=== PATIENT | male | born 1935 | race Caucasian/White ===

== ENCOUNTER 2017-10-14 10:04 | Emergency (ER) | payer MEDICARE, OTHER ==
[~2017-10-14] VITALS: Ht 172.7 cm; Wt 93.1 kg
[~2017-10-14 10:04] MED LIST: AC500T PO; ACET325T38 PO; ACET500L36 PO; AMLO10TA2 PO; AMLO10TA4 PO; AMLO10TA82 PO; ASP81CT PO; ASPI-586 PO; ASPI-999 PO; ATOR40TA70 PO; Atorvastatin Calcium PO; BNZ10T; BNZ10T PO; CLOP75TA28 PO; CLOP75TA69 PO; CLPD75T; CLPD75T PO; ETOD400T PO; GLUCOSAMINE; IBP200T; IBUPROFEN; LOSA50TA36 PO; METO100T5 PO; MTP100TCR PO; MULT-974 PO; MULT1TAB63 PO; MV-M1TAB38 PO; OMEP40CA36 PO; OXYC-197 PO; PHEN100C11 PO; PHN100C PO; TOLT2TAB5 PO; TOLT4CAP13 PO
[2017-10-14] MEDS ORDERED: LACTATED RINGERS 1,000 ML IV ONE (10:18)
[2017-10-14] MEDS ORDERED: FAMOTIDINE 20MG/2ML IV (PEPCID) IV STA (10:18)
[2017-10-14] MEDS ORDERED: ONDANSETRON 4 MG/2 ML (SDV) Z0FRAN IVP ONE (10:30)
[2017-10-14] MEDS ORDERED: ASPIRIN 81 MG CHEW (CHILDREN'S ASA) PO ONE (10:30)
[2017-10-14] MEDS ORDERED: NITROGLYCERIN 0.4 MG SL TABS BTL 25'S SL PRN (10:30)
--- NOTE | 2017-10-14 10:34 | ED Chest Pain ---
General Stated Complaint: CP,SOB,DIARRHEA,N/V Source: patient, spouse History of Present Illness Date Seen by Provider: Oct 14, 2017 Time Seen by Provider: 10:04 Initial Comments ARRIVES VIA POV FROM DR. CELAYA'S OFFICE, WHO CALLED PRIOR TO PT ARRIVAL PT STATES HE BEGAN HAVING MID CHEST PAIN DURING THE NIGHT, AND RADIATES TO BACK/ BETWEEN SHOULDER BLADES PAIN IS BETTER, BUT NOT GONE--HAS CONSTANT DISCOMFORT, BUT IS WORSE WITH DEEP BREATHS WAS SHORT OF BREATH WHEN CHEST PAIN WAS BAD, BUT DOES NOT FEEL SHORT OF BREATH NOW. AT 0700 THIS AM, BEGAN HAVING NAUSEA/VOMITING/DIARRHEA--VOMITED X 5-6 AND DIARRHEA X 5-6 HAS SOME EPIGASTRIC DISCOMFORT WITH VOMITING AND DEEP BREATHS, OTHERWISE IS NOT HAVING ABDOMINAL PAIN NO FEVER NO RECENT COUGH/URI/FLU SYMPTOMS NO KNOWN FEVER OR SWEATS NO SWELLING IN FEET/ANKLES OR PAIN IN CALVES PT HAS HISTORY OF CAD, BUT NO IL, AND CARDIAC CATH WITH NO INTERVENTION PCP: DR. CELAYA TOPOLOGY PROFESSOR: DR. HERCULES Allergies and Home Medications Allergies Coded Allergies: Sulfa (Sulfonamide Antibiotics) (Unverified Allergy, Mild, HIVES, 07/03/16 ) Home Medications Amlodipine Besylate 10 Mg Tablet, 10 MG PO DAILY, (Reported) Aspirin 81 Mg Tablet.dr, 81 MG PO DAILY, (Reported) Atorvastatin Calcium 40 Mg Tablet, 40 MG PO HS, (Reported) Clopidogrel Bisulfate 75 Mg Tablet, 75 MG PO DAILY, (Reported) Losartan Potassium 50 Mg Tablet, 50 MG PO DAILY, (Reported) Multivitamin 1 Each Tablet, 1 TAB PO DAILY, (Reported) Mv-Mn/FA/Vit K/Lycop/Lut/Zeaxa 1 Each Tablet, 1 TAB PO DAILY, (Reported) Oxycodone HCl/Acetaminophen 1 Each Tablet, 1 EACH PO Q4H, #60 Prescribed by: NATALIA CERDA on 07/10/16 1050 Phenytoin Sodium Extended 100 Mg Capsule, 100 MG PO BID, (Reported) Tolterodine Tartrate 4 Mg Cap.er.24h, 4 MG PO BID, (Reported) Review of Systems Constitutional: no symptoms reported, No chills, No diaphoresis, No fever EENTM: No Symptoms Reported Respiratory: See HPI, Shortness of Air Cardiovascular: See HPI, Chest Pain, Denies Edema, Denies Lightheadedness, Denies Palpitations, Denies Syncope Gastrointestinal: See HPI, Diarrhea, Nausea, Vomiting Genitourinary: No Symptoms Reported Musculoskeletal: see HPI, back pain Skin: no symptoms reported Psychiatric/Neurological: No Symptoms Reported Endocrine: No Symptoms Reported Hematologic/Lymphatic: No Symptoms Reported Past Fbxwkic-Najrgx-Zqhqwk Hx Patient Social History Alcohol Use: Denies Use Recreational Drug Use: No Smoking Status: Never a Smoker Recent Foreign Travel: No Contact w/Someone Who Travel: No Recent Hopitalizations: No Immunizations Up To Date Tetanus Booster (TDap): Unknown Date of Pneumonia Vaccine: May 22, 2016 Date of Influenza Vaccine: May 22, 2016 Seasonal Allergies Seasonal Allergies: No Surgeries History of Surgeries: Yes (CARDIAC CATH-NO INTERVENTION; BILATERAL TOTAL KNEE REPLACEMENTS) Surgeries: Appendectomy, Bladder Surgery, Cardiac, Gallbladder, Joint Replacement, Orthopedic, Transurethral Resection Respiratory History of Respiratory Disorde: No Currently Using CPAP: No Currently Using BIPAP: No Cardiovascular History of Cardiac Disorders: Yes Cardiac Disorders: Coronary Artery Disease, High Cholesterol, Hypertension Neurological History of Neurological Disord: Yes Neurological Disorders: Seizure Disorder, Stroke Reproductive System Hx Reproductive Disorders: No Sexually Transmitted Disease: No HIV/AIDS: No Genitourinary History of Genitourinary Disor: Yes Genitourinary Disorders: Benign Prostatic Hyperpl, Prostate Problems, Kidney Stones Gastrointestinal History of Gastrointestinal Di: Yes (S/P JAYLEEN) Gastrointestinal Disorders: Gall Bladder Disease Musculoskeletal History of Musculoskeletal Dis: Yes Musculoskeletal Disorders: Arthritis Endocrine History of Endocrine Disorders: No HEENT History of HEENT Disorders: Yes HEENT Disorders: Cataract, Macular Degeneration Loss of Vision: Denies Hearing Impairment: Denies Cancer History of Cancer: Yes Cancer: Bladder Type of Tx Receive: Surgical Intervention Psychosocial History of Psychiatric Problem: No Integumentary History of Skin or Integumenta: No Blood Transfusions History of Blood Disorders: No Adverse Reaction to a Blood Tr: No Family Medical History Family Medial History: Abdominal aortic aneurysm 09 BROTHER History of - respiratory disease 09 BROTHER Myocardial infarction 09 BROTHER Stroke 03 MOTHER 09 BROTHER 09 SISTER Physical Exam Vital Signs Vital Signs - First Documented 10/14/17 10:04 Temp 97.6 Pulse 79 Resp 18 B/P (MAP) 156/40 (78) Pulse Ox 100 O2 Delivery Room Air Capillary Refill : General Appearance: No Apparent Distress, WD/WN Neck: Full Range of Motion, Normal Inspection, Non Tender, Supple Respiratory: Chest Non Tender, No Accessory Muscle Use, No Respiratory Distress , Rales (IN BASES--LEFT > RIGHT) Cardiovascular: Regular Rate, Rhythm, No Edema, No JVD, No Murmur, Normal Peripheral Pulses, Other (OCCASIONAL ECTOPY C/W PAC'S ON MONITOR) Gastrointestinal: Normal Bowel Sounds, No Organomegaly, No Pulsatile Mass, Soft , Tenderness (MILD EPIGASTRIC) Extremity: Normal Capillary Refill, Normal Inspection, Normal Range of Motion, Non Tender, No Calf Tenderness, No Pedal Edema Neurologic/Psychiatric: Alert, Oriented x3, No Motor/Sensory Deficits, Normal Mood/Affect, 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 Skin: Normal Color, Warm/Dry Progress/Results/Core Measures Results/Orders Lab Results Laboratory Tests Test 10/14/17 10:29 10/14/17 11:14 Range/Units White Blood Count 13.7 H 4.3-11.0 10^3/uL Red Blood Count 4.62 4.35-5.85 10^6/uL Hemoglobin 14.7 13.3-17.7 G/DL Hematocrit 42 40-54 % Mean Corpuscular Volume 91 80-99 FL Mean Corpuscular Hemoglobin 32 25-34 PG Mean Corpuscular Hemoglobin Concent 35 32-36 G/DL Red Cell Distribution Width 13.5 10.0-14.5 % Platelet Count 234 130-400 10^3/uL Mean Platelet Volume 9.0 7.4-10.4 FL Neutrophils (%) (Auto) 87 H 42-75 % Lymphocytes (%) (Auto) 4 L 12-44 % Monocytes (%) (Auto) 7 0-12 % Eosinophils (%) (Auto) 1 0-10 % Basophils (%) (Auto) 0 0-10 % Neutrophils # (Auto) 12.0 H 1.8-7.8 X 10^3 Lymphocytes # (Auto) 0.6 L 1.0-4.0 X 10^3 Monocytes # (Auto) 1.0 0.0-1.0 X 10^3 Eosinophils # (Auto) 0.2 0.0-0.3 10^3/uL Basophils # (Auto) 0.0 0.0-0.1 10^3/uL Neutrophils % (Manual) 86 % Lymphocytes % (Manual) 4 % Monocytes % (Manual) 6 % Eosinophils % (Manual) 1 % Basophils % (Manual) 0 % Band Neutrophils 3 % Blood Morphology Comment NORMAL Prothrombin Time 13.3 12.2-14.7 SEC INR Comment 1.0 0.8-1.4 Activated Partial Thromboplast Time 24 24-35 SEC Sodium Level 139 135-145 MMOL/L Potassium Level 4.3 3.6-5.0 MMOL/L Chloride Level 107 98-107 MMOL/L Carbon Dioxide Level 21 21-32 MMOL/L Anion Gap 11 5-14 MMOL/L Blood Urea Nitrogen 16 7-18 MG/DL Creatinine 0.89 0.60-1.30 MG/DL Estimat Glomerular Filtration Rate > 60 BUN/Creatinine Ratio 18 Glucose Level 152 H 70-105 MG/DL Calcium Level 9.2 8.5-10.1 MG/DL Magnesium Level 1.9 1.8-2.4 MG/DL Total Bilirubin 0.6 0.1-1.0 MG/DL Aspartate Amino Transf (AST/SGOT) 23 5-34 U/L Alanine Aminotransferase (ALT/SGPT) 24 0-55 U/L Alkaline Phosphatase 83 40-136 U/L Total Creatine Kinase 87 30-200 U/L Creatine Kinase MB 2.2 <6.6 NG/ML Troponin I < 0.30 <0.30 NG/ML B-Type Natriuretic Peptide 105.4 H <100.0 PG/ML Total Protein 7.4 6.4-8.2 GM/DL Albumin 4.2 3.2-4.5 GM/DL Amylase Level 59 25-125 U/L Lipase 41 8-78 U/L Urine Color YELLOW Urine Clarity CLEAR Urine pH 5 5-9 Urine Specific [place] 1.020 1.016-1.022 Urine Protein 1+ H NEGATIVE Urine Glucose (UA) NEGATIVE NEGATIVE Urine Ketones NEGATIVE NEGATIVE Urine Nitrite NEGATIVE NEGATIVE Urine Bilirubin NEGATIVE NEGATIVE Urine Urobilinogen NORMAL NORMAL MG/DL Urine Leukocyte Esterase 1+ H NEGATIVE Urine RBC (Auto) NEGATIVE NEGATIVE Urine RBC NONE /HPF Urine WBC 2-5 /HPF Urine Squamous Epithelial Cells 0-2 /HPF Urine Crystals NONE /LPF Urine Bacteria TRACE /HPF Urine Casts NONE /LPF Urine Mucus MODERATE H /LPF Urine Culture Indicated NO My Orders Orders - DELFINO PHELPS DO Saline Lock/Iv-Start (10/14/17 10:18) Ekg Tracing (10/14/17 10:18) Monitor-Rhythm Ecg Trace Only (10/14/17 10:18) Amylase (10/14/17 10:18) BNP (10/14/17 10:18) Cbc With Automated Diff (10/14/17 10:18) Comprehensive Metabolic Panel (10/14/17 10:18) Creatine Kinase (10/14/17 10:18) Creatine Kinase Mb (10/14/17 10:18) Lipase (10/14/17 10:18) Magnesium (10/14/17 10:18) Protime With Inr (10/14/17 10:18) Partial Thromboplastin Time (10/14/17 10:18) Troponin I (10/14/17 10:18) Ua Culture If Indicated (10/14/17 10:18) Chest 1 View, Ap/Pa Only (10/14/17 10:18) Ondansetron Injection (Zofran Injectio (10/14/17 10:30) Famotidine Injection (Pepcid Injection) (10/14/17 10:18) Saline Lock/Iv-Start (10/14/17 10:18) Lactated Ringers (Lr 1000 Ml Iv Solution (10/14/17 10:18) Aspirin Chewable Tablet (Baby Aspirin Ch (10/14/17 10:30) Nitroglycerin 0.4 Mg Btl 25's (Nitrostat (10/14/17 10:30) Manual Differential (10/14/17 10:29) Ct Kerri Chest/Noang Abd-Pelv W (10/14/17 11:24) Iohexol Injection (Omnipaque 350 Mg/Ml 1 (10/14/17 11:30) Ns (Ivpb) (Sodium Chloride 0.9%) (10/14/17 11:30) Medications Given in ED Current Medications Medications Dose Ordered Sig/Randall Route Start Time Stop Time Status Last Admin Dose Admin Aspirin 324 mg ONCE ONCE PO 10/14/17 10:30 10/14/17 10:31 DC 10/14/17 10:36 324 MG Iohexol 125 ml ONCE ONCE IV 10/14/17 11:30 10/14/17 11:32 DC 10/14/17 11:43 125 ML Lactated Ringer's 1,000 ml @ 0 mls/hr Q0M ONCE IV 10/14/17 10:18 10/14/17 10:21 DC 10/14/17 10:39 1,000 MLS/HR Ondansetron HCl 4 mg ONCE ONCE IVP 10/14/17 10:30 10/14/17 10:31 DC 10/14/17 10:36 4 MG Sodium Chloride 250 ml ONCE ONCE IV 10/14/17 11:30 10/14/17 11:32 DC 10/14/17 11:43 80 ML Vital Signs/I&O Vital Sign - Last 12Hours 10/14/17 10/14/17 10:04 11:27 Temp 97.6 Pulse 79 73 Resp 18 18 B/P (MAP) 156/40 (78) 159/88 (111) Pulse Ox 100 96 O2 Delivery Room Air Room Air Progress Note : Progress Note NO COMPLAINTS OF ANY KIND FOR REMAINDER OF ER STAY PT STATES HE FEELS COMPLETELY BACK TO NORMAL AND WANTS TO GO HOME WAS INCONTINENT OF DIARRHEA STOOL X 1 ECG Initial ECG Impression Time: 10:33 Initial ECG Rate: 73 Initial ECG Rhythm: Normal Sinus ( ) Initial ECG Impression: Normal (PAC'S) Initial ECG Comparisson: Changed (AXIS CHANGED INFERERIOR LEADS) Diagnostic Imaging Comments CXR--NO ACUTE PROCESS, PER RADIOLOGIST REPORT CT CHEST ANGIOGRAM/ ABDOMEN-PELVIS--NO P.E. NO ACUTE PROCESS Reviewed: Reviewed by Me Departure Communication (Admissions) Progress Notes 1219--PAGED DR. HERCULES [id number]--SPOKE WITH DR. CELAYA, HE FEELS COMFORTABLE WITH PT GOING HOME, AND HE WILL SEE IN OFFICE TOMORROW MORNING. Impression Impression: Primary Impression: Gastroenteritis Additional Impression: CHEST PAIN-RESOLVED Disposition: 01 HOME, SELF-CARE Condition: Improved Departure-Patient Inst. Referrals: LISA CELAYA MD (PCP/Family) Primary Care Physician Patient Instructions: Chest Pain (DC), [id number], Viral Gastroenteritis Add. Discharge Instructions: TAKE YOUR REGULAR MEDICATIONS PRESCRIBED CLEAR LIQUIDS--WATER, BROTH, JELLO, GATORADE WHEN YOUR NAUSEA IS BETTER, ADD BRATS DIET TO CLEAR LIQUIDS--BANANAS, RICE, APPLESAUCE, TOAST, SALTINES FOLLOW UP WITH DR. CELAYA TOMORROW MORNING, RETURN TO ER IF SYMPTOMS RETURN / WORSEN Scripts Ondansetron (Zofran Odt) 4 Mg Tab.rapdis 4 MG PO Q4H for Nausea/Vomiting, #10 TAB Prov: DELFINO PHELPS DO 10/14/17 Pantoprazole Sodium (Protonix) 40 Mg Tablet.dr 40 MG PO DAILY, #15 TAB Prov: DELFINO PHELPS DO 10/14/17 Lactobacillus Acidophilus (Acidophilus Lactobacillus) 1 Gm Powder 1 GM MC QID for 7 Days, #1 EA Prov: DELFINO PHELPS DO 10/14/17 DELFINO PHELPS DO Oct 14, 2017 10:34
[2017-10-14 10:52] LABS: BASOPHILS % (AUTO) 0 % (0-10); EOSINOPHILS # (AUTO) 0.2 10^3/uL (0.0-0.3); EOSINOPHILS % (AUTO) 1 % (0-10); HEMATOCRIT 42 % (40-54); HEMOGLOBIN 14.7 G/DL (13.3-17.7); LYMPHOCYTES # (AUTO) 0.6 X 10^3 (1.0-4.0); LYMPHOCYTES % (AUTO) 4 % (12-44); MEAN CORPUSCULAR HEMOGLOBIN 32 PG (25-34); MEAN CORPUSCULAR HGB CONC 35 G/DL (32-36); MEAN CORPUSCULAR VOLUME 91 FL (80-99); MONOCYTES % (AUTO) 7 % (0-12); NEUTROPHILS % (AUTO) 87 % (42-75); PLATELET COUNT 234 10^3/uL (130-400); RED BLOOD COUNT 4.62 10^6/uL (4.35-5.85); RED CELL DISTRIBUTION WIDTH 13.5 % (10.0-14.5); WHITE BLOOD COUNT 13.7 10^3/uL (4.3-11.0)
[2017-10-14 11:03] LABS: PROTHROMBIN TIME PATIENT 13.3 SEC (12.2-14.7)
[2017-10-14 11:13] LABS: ALANINE AMINOTRANSFERASE 24 U/L (0-55); ALBUMIN 4.2 GM/DL (3.2-4.5); ALKALINE PHOSPHATASE 83 U/L (40-136); AMYLASE 59 U/L (25-125); BILIRUBIN,TOTAL 0.6 MG/DL (0.1-1.0); BUN/CREATININE RATIO 18; CALCIUM 9.2 MG/DL (8.5-10.1); CARBON DIOXIDE 21 MMOL/L (21-32); CHLORIDE 107 MMOL/L (98-107); CREATINE KINASE 87 U/L (30-200); CREATININE SERUM 0.89 MG/DL (0.60-1.30); GFR ESTIMATED > 60; GLUCOSE 152 MG/DL (70-105); LIPASE 41 U/L (8-78); MAGNESIUM 1.9 MG/DL (1.8-2.4); POTASSIUM 4.3 MMOL/L (3.6-5.0); SODIUM 139 MMOL/L (135-145); TOTAL PROTEIN 7.4 GM/DL (6.4-8.2)
[2017-10-14 11:18] LABS: BAND NEUTROPHILS 3 %; BASOPHILS % (MANUAL) 0 %; EOSINOPHILS % (MANUAL) 1 %; LYMPHOCYTES % (MANUAL) 4 %; MONOCYTES % (MANUAL) 6 %; NEUTROPHILS % (MANUAL) 86 %; RBC MORPH NORMAL
[2017-10-14 11:21] LABS: CREATINE KINASE MB 2.2 NG/ML (<6.6)
[2017-10-14 11:24] LABS: BILIRUBIN,URINE NEGATIVE (NEGATIVE); CLARITY,URINE CLEAR; COLOR,URINE YELLOW; GLUCOSE, URINE (UA) NEGATIVE (NEGATIVE); KETONES,URINE NEGATIVE (NEGATIVE); LEUKOCYTE ESTERASE ,URINE 1+ (NEGATIVE); NITRITE,URINE NEGATIVE (NEGATIVE); PH,URINE 5 (5-9); PROTEIN,URINE 1+ (NEGATIVE); UROBILINOGEN,URINE NORMAL (NORMAL)
[2017-10-14 11:27] VITALS: BP 159/88
--- NOTE | 2017-10-14 11:27 | Diagnostic Imaging Report ---
INDICATION: Shortness of breath and nausea. FINDINGS: Frontal chest obtained at 10:48 a.m. and compared with 07/03/2016. Heart is mildly enlarged. There is poor inspiration. There is no focal infiltrate or pneumothorax or pleural fluid. IMPRESSION: Poor inspiration. No focal acute process in the chest. Heart is mildly enlarged. Dictated by: Dictated on workstation # [id number]
[2017-10-14] MEDS ORDERED: NS 250 ML (IVPB) BAG IV ONE (11:30)
[2017-10-14] MEDS ORDERED: IOHEXOL 350 MG/ML 150 ML (OMNIPAQUE 350) VIAL IV ONE (11:30)
[2017-10-14 11:32] LABS: BACTERIA,URINE TRACE /HPF
[2017-10-14 11:33] LABS: SQUAMOUS EPITHELIAL CELL,UR 0-2 /HPF
--- NOTE | 2017-10-14 12:11 | Diagnostic Imaging Report ---
Indication: Shortness of air, chest pain with diarrhea. Findings: There are no intraluminal pulmonary arterial filling defects. There were no findings of pulmonary arterial embolus. The thoracic aorta is patent and nonaneurysmal. There are nodules in both thyroid lobes off the lower pole of the left nodule. There is an exophytic mass extending into the left paratracheal superior mediastinum. Findings presumed goiterous. No hilar mediastinal or axillary lymphadenopathy and no thoracic effusion. Abdomen pelvis: Gallbladder absent. Liver, bile ducts, spleen, adrenals and pancreas unremarkable. The abdominal aorta is atherosclerotic and ectatic at 2.4 cm distally but not frankly aneurysmal and without focal stenosis or occlusion. There is no ascites. There is no mesenteric or retroperitoneal lymphadenopathy. There is scattered colonic diverticuli without findings of focal or active diverticulitis. There is no evidence for small or large bowel obstruction. No perienteric or pericolonic edema. No ascites or fluid collection. No focal inflammatory process. The osseous structures nonacute. Impression: Chest: Negative for PE or other acute pathologies. Abdomen and pelvis: Atherosclerotic aortic ectasia. No findings of acute ischemia. No obstructive features, inflammatory process or acute-appearing abdominal or pelvic abnormalities. Chronic noninflamed diverticulosis, previous cholecystectomy. Dictated by: Dictated on workstation # [id number]
[2017-10-14] MEDS ORDERED: PANT40TA2 PO (12:34)
[2017-10-14] MEDS ORDERED: ONDA4TAB8 PO (12:34)
[2017-10-14] MEDS ORDERED: LACT1POW8 MC (12:34)
[2017-10-14 12:54] VITALS: BP 151/86
--- OUTSIDE RECORDS SUMMARY | 2017-10-15 08:54 | XMS REPORT | Continuity of Care Document ---
Author Author [facility] Organization [facility] Address Unknown Phone Unavailable Allergies Active Description Code Type Severity Reaction Onset Reported/Identified Relationship to Patient Clinical Status Yes Sulfa (Sulfonamide Antibiotics) [id number] Drug Allergy Mild HIVES 2015 Medications There is no data. 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 08/07/1550 ZAIDA PRATT, NATALIA Oakes Ot Z96.652 PRESENCE OF LEFT ARTIFICIAL KNEE JOINT 09/06/2014 YOMI PRATT, LISA R Ot 241.0 07/06/2015 YOMI PRATT, LISA R Ot A41.9 07/06/2015 YOMI PRATT, LISA R Ot C67.9 07/06/2015 YOMI PRATT, LISA R Ot G40.909 07/06/2015 YOMI PRATT, LISA R Ot I10 07/06/2015 YOMI PRATT, LISA R Ot I69.398 07/06/2015 YOMI PRATT, LISA R Ot N30.90 07/06/2015 YOMI PRATT, LISA R Ot N40.0 07/06/2015 YOMI PRATT, LISA R Ot Z23 07/11/2015 NISSA PRATT, CHELY A Ot D49.4 07/11/2015 NISSA PRATT, CHELY A Ot N13.8 07/11/2015 NISSA PRATT, CHELY A Ot N40.1 07/11/2015 NISSA PRATT, CHELY A Ot R31.0 07/19/2015 NISSA PRATT, CHELY A Ot R31.0 07/03/2016 ZAIDA PRATT, NATALIA Oakes Ot Z01.812 ENCOUNTER FOR PREPROCEDURAL LABORATORY E 07/03/2016 ZAIDA PRATT, NATALIA Oaeks Ot Z01.812 ENCOUNTER FOR PREPROCEDURAL LABORATORY E 07/03/2016 NATALIA CERDA MD, Ot 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, UNSPECIFIED 07/03/2016 NATALIA CERDA MD Ot R53.83 OTHER FATIGUE 07/03/2016 NATALIA CERDA MD Ot Z01.810 ENCOUNTER FOR PREPROCEDURAL CARDIOVASCUL 07/03/2016 NATALIA CERDA MD Ot Z01.811 ENCOUNTER FOR PREPROCEDURAL RESPIRATORY 07/03/2016 NATALIA CERDA MD Ot Z01.812 ENCOUNTER FOR PREPROCEDURAL LABORATORY E 07/03/2016 NATALIA CERDA MD Ot Z11.2 ENCOUNTER FOR SCREENING FOR OTHER BACTER 07/04/2016 NATALIA CERDA MD, Ot 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, UNSPECIFIED 07/04/2016 NATALIA CERDA MD Ot R53.83 OTHER FATIGUE 07/04/2016 NATALIA CERDA MD Ot Z01.810 ENCOUNTER FOR PREPROCEDURAL CARDIOVASCUL 07/04/2016 NATALIA CERDA MD Ot Z01.811 ENCOUNTER FOR PREPROCEDURAL RESPIRATORY 07/04/2016 NATALIA CERDA MD Ot Z01.812 ENCOUNTER FOR PREPROCEDURAL LABORATORY E 07/04/2016 NATALIA CERDA MD Ot Z11.2 ENCOUNTER FOR SCREENING FOR OTHER BACTER 07/13/2016 NATALIA CERDA MD Ot E78.5 HYPERLIPIDEMIA, UNSPECIFIED 07/13/2016 NATALIA CERDA MD Ot 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, UNSP, NOT INTRACTABLE, WITHOUT 07/13/2016 NATALIA CERDA MD Ot I10 ESSENTIAL (PRIMARY) HYPERTENSION 07/13/2016 NATALIA CERDA MD Ot I25.10 ATHSCL HEART DISEASE OF [place] CORONARY 07/13/2016 NATALIA CERDA MD Ot M17.12 UNILATERAL PRIMARY OSTEOARTHRITIS, LEFT 07/13/2016 NATALIA CERDA MD Ot 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 07/13/2016 NATALIA CERDA MD Ot Z79.82 SLEEP TECHNOLOGIST (CURRENT) USE OF ASPIRIN 07/13/2016 NATALIA CERDA MD Ot Z86.73 PRSNL HX OF TIA (TIA), AND CEREB INFRC W 07/13/2016 NATALIA CERDA MD Ot Z96.651 PRESENCE OF RIGHT ARTIFICIAL KNEE JOINT 08/14/2016 NATALIA CERDA MD, Ot 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 08/14/2016 NATALIA CERDA MD, Ot Z96.652 PRESENCE OF LEFT ARTIFICIAL KNEE JOINT 08/29/2016 NATALIA CERDA MD, Ot 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 08/29/2016 NATALIA CERDA MD, Ot Z96.652 PRESENCE OF LEFT ARTIFICIAL KNEE JOINT Procedures Code Description Performed By Performed On [id number] REPLACE OF L KNEE JT WITH SYNTH SUB, [facility] [place] 07/10/2016 Results Test Result Range Complete blood count (CBC) with automated white blood cell (WBC) differential - 07/03/16 10:00 Blood leukocytes automated count (number/volume) 7.6 10*3/uL 4.3-11.0 Blood erythrocytes automated count (number/volume) 4.39 10*6/uL 4.35-5.85 Venous blood hemoglobin measurement (mass/volume) 13.8 g/dL 13.3-17.7 Blood hematocrit (volume fraction) 40 % 40-54 Automated erythrocyte mean corpuscular volume 92 [foz_us] 80-99 Automated erythrocyte mean corpuscular hemoglobin (mass per erythrocyte) 31 pg 25-34 Automated erythrocyte mean corpuscular hemoglobin concentration measurement ( mass/volume) 34 g/dL 32-36 Automated erythrocyte distribution width ratio 13.0 % 10.0-14.5 Automated blood platelet count (count/volume) 327 10*3/uL 130-400 Automated blood platelet mean volume measurement 8.8 [foz_us] 7.4-10.4 Automated blood neutrophils/100 leukocytes 62 % 42-75 Automated blood lymphocytes/100 leukocytes 27 % 12-44 Blood monocytes/100 leukocytes 7 % 0-12 Automated blood eosinophils/100 leukocytes 3 % 0-10 Automated blood basophils/100 leukocytes 1 % 0-10 Blood neutrophils automated count (number/volume) 4.7 10*3 1.8-7.8 Blood lymphocytes automated count (number/volume) 2.1 10*3 1.0-4.0 Blood monocytes automated count (number/volume) 0.5 10*3 0.0-1.0 Automated eosinophil count 0.2 10*3/uL 0.0-0.3 Automated blood basophil count (count/volume) 0.1 10*3/uL 0.0-0.1 Comprehensive metabolic panel - 07/03/16 10:00 Serum or plasma sodium measurement (moles/volume) 142 mmol/L 135-145 Serum or plasma potassium measurement (moles/volume) 4.6 mmol/L 3.6-5.0 Serum or plasma chloride measurement (moles/volume) 106 mmol/L 98-107 Carbon dioxide 27 mmol/L 21-32 Serum or plasma anion gap determination (moles/volume) 9 mmol/L 5-14 Serum or plasma urea nitrogen measurement (mass/volume) 14 mg/dL 7-18 Serum or plasma creatinine measurement (mass/volume) 0.90 mg/dL 0.60-1.30 Serum or plasma urea nitrogen/creatinine mass ratio 16 NRG Serum or plasma creatinine measurement with calculation of estimated glomerular filtration rate > NRG Serum or plasma glucose measurement (mass/volume) 117 mg/dL 70-105 Serum or plasma calcium measurement (mass/volume) 9.5 mg/dL 8.5-10.1 Serum or plasma total bilirubin measurement (mass/volume) 0.4 mg/dL 0.1-1.0 Serum or plasma alkaline phosphatase measurement (enzymatic activity/volume) 83 U/L 40-136 Serum or plasma aspartate aminotransferase measurement (enzymatic activity/ volume) 23 U/L 5-34 Serum or plasma alanine aminotransferase measurement (enzymatic activity/volume ) 28 U/L 0-55 Serum or plasma protein measurement (mass/volume) 7.0 g/dL 6.4-8.2 Serum or plasma albumin measurement (mass/volume) 4.2 g/dL 3.2-4.5 Blood type T Indirect antibody screen panel - 07/03/16 10:00 ABO+Rh group AP NRG Blood group antibody screen NEGATIVE NRG Erythrocyte sedimentation rate by westergren method - 07/03/16 10:00 Erythrocyte sedimentation rate by westergren method 9 mm 0-30 PT panel in platelet poor plasma by coagulation assay - 07/03/16 10:00 Prothrombin time (PT) in platelet poor plasma by coagulation assay 12.4 s 12.2-14.7 INR in platelet poor plasma or blood by coagulation assay 1.0 0.8-1.4 Complete urinalysis with reflex to culture - 07/03/16 10:00 Urine color determination YELLOW NRG Urine clarity determination CLEAR NRG Urine pH measurement by test strip 5 5-9 Specific gravity of urine by test strip 1.020 1.016- 1.022 Urine protein assay by test strip, semi-quantitative 1+ NEGATIVE Urine glucose detection by automated test strip NEGATIVE NEGATIVE Erythrocytes detection in urine sediment by light microscopy NEGATIVE NEGATIVE Urine ketones detection by automated test strip NEGATIVE NEGATIVE Urine nitrite detection by test strip NEGATIVE NEGATIVE Urine total bilirubin detection by test strip NEGATIVE NEGATIVE Urine urobilinogen measurement by automated test strip (mass/volume) NORMAL NORMAL Urine leukocyte esterase detection by dipstick 1+ NEGATIVE Automated urine sediment erythrocyte count by microscopy (number/high power field) NONE NRG Automated urine sediment leukocyte count by microscopy (number/high power field ) [HPF] NRG Bacteria detection in urine sediment by light microscopy TRACE NRG Squamous epithelial cells detection in urine sediment by light microscopy 2-5 NRG Crystals detection in urine sediment by light microscopy NONE NRG Casts detection in urine sediment by light microscopy NONE NRG Mucus detection in urine sediment by light microscopy MODERATE NRG Complete urinalysis with reflex to culture NO NRG Methicillin resistant Staphylococcus aureus (MRSA) screening culture - 10:00 Methicillin resistant Staphylococcus aureus (MRSA) screening culture NEG NRG Complete blood count (CBC) with automated white blood cell (WBC) differential - 07/11/16 06:03 Blood leukocytes automated count (number/volume) 11.6 10*3/uL 4.3-11.0 Blood erythrocytes automated count (number/volume) 3.69 10*6/uL 4.35-5.85 Venous blood hemoglobin measurement (mass/volume) 11.7 g/dL 13.3-17.7 Blood hematocrit (volume fraction) 34 % 40-54 Automated erythrocyte mean corpuscular volume 93 [foz_us] 80-99 Automated erythrocyte mean corpuscular hemoglobin (mass per erythrocyte) 32 pg 25-34 Automated erythrocyte mean corpuscular hemoglobin concentration measurement ( mass/volume) 34 g/dL 32-36 Automated erythrocyte distribution width ratio 13.1 % 10.0-14.5 Automated blood platelet count (count/volume) 233 10*3/uL 130-400 Automated blood platelet mean volume measurement 9.2 [foz_us] 7.4-10.4 Automated blood neutrophils/100 leukocytes 77 % 42-75 Automated blood lymphocytes/100 leukocytes 10 % 12-44 Blood monocytes/100 leukocytes 13 % 0-12 Automated blood eosinophils/100 leukocytes 0 % 0-10 Automated blood basophils/100 leukocytes 0 % 0-10 Blood neutrophils automated count (number/volume) 8.9 10*3 1.8-7.8 Blood lymphocytes automated count (number/volume) 1.2 10*3 1.0-4.0 Blood monocytes automated count (number/volume) 1.5 10*3 0.0-1.0 Automated eosinophil count 0.1 10*3/uL 0.0-0.3 Automated blood basophil count (count/volume) 0.0 10*3/uL 0.0-0.1 Comprehensive metabolic panel - 07/11/16 06:03 Serum or plasma sodium measurement (moles/volume) 138 mmol/L 135-145 Serum or plasma potassium measurement (moles/volume) 4.0 mmol/L 3.6-5.0 Serum or plasma chloride measurement (moles/volume) 105 mmol/L 98-107 Carbon dioxide 23 mmol/L 21-32 Serum or plasma anion gap determination (moles/volume) 10 mmol/L 5-14 Serum or plasma urea nitrogen measurement (mass/volume) 15 mg/dL 7-18 Serum or plasma creatinine measurement (mass/volume) 0.80 mg/dL 0.60-1.30 Serum or plasma urea nitrogen/creatinine mass ratio 19 NRG Serum or plasma creatinine measurement with calculation of estimated glomerular filtration rate > NRG Serum or plasma glucose measurement (mass/volume) 164 mg/dL 70-105 Serum or plasma calcium measurement (mass/volume) 8.3 mg/dL 8.5-10.1 Serum or plasma total bilirubin measurement (mass/volume) 0.5 mg/dL 0.1-1.0 Serum or plasma alkaline phosphatase measurement (enzymatic activity/volume) 73 U/L 40-136 Serum or plasma aspartate aminotransferase measurement (enzymatic activity/ volume) 21 U/L 5-34 Serum or plasma alanine aminotransferase measurement (enzymatic activity/volume ) 29 U/L 0-55 Serum or plasma protein measurement (mass/volume) 5.7 g/dL 6.4-8.2 Serum or plasma albumin measurement (mass/volume) 3.5 g/dL 3.2-4.5 IRON TEST - 07/11/16 06:03 Serum or plasma iron measurement (mass/volume) 19 % 40- 180 Complete blood count (CBC) with automated white blood cell (WBC) differential - 07/12/16 04:07 Blood leukocytes automated count (number/volume) 13.0 10*3/uL 4.3-11.0 Blood erythrocytes automated count (number/volume) 3.42 10*6/uL 4.35-5.85 Venous blood hemoglobin measurement (mass/volume) 10.7 g/dL 13.3-17.7 Blood hematocrit (volume fraction) 31 % 40-54 Automated erythrocyte mean corpuscular volume 92 [foz_us] 80-99 Automated erythrocyte mean corpuscular hemoglobin (mass per erythrocyte) 31 pg 25-34 Automated erythrocyte mean corpuscular hemoglobin concentration measurement ( mass/volume) 34 g/dL 32-36 Automated erythrocyte distribution width ratio 12.8 % 10.0-14.5 Automated blood platelet count (count/volume) 203 10*3/uL 130-400 Automated blood platelet mean volume measurement 9.2 [foz_us] 7.4-10.4 Automated blood neutrophils/100 leukocytes 69 % 42-75 Automated blood lymphocytes/100 leukocytes 12 % 12-44 Blood monocytes/100 leukocytes 18 % 0-12 Automated blood eosinophils/100 leukocytes 1 % 0-10 Automated blood basophils/100 leukocytes 0 % 0-10 Blood neutrophils automated count (number/volume) 8.9 10*3 1.8-7.8 Blood lymphocytes automated count (number/volume) 1.5 10*3 1.0-4.0 Blood monocytes automated count (number/volume) 2.4 10*3 0.0-1.0 Automated eosinophil count 0.2 10*3/uL 0.0-0.3 Automated blood basophil count (count/volume) 0.0 10*3/uL 0.0-0.1 Comprehensive metabolic panel - 07/12/16 04:07 Serum or plasma sodium measurement (moles/volume) 136 mmol/L 135-145 Serum or plasma potassium measurement (moles/volume) 3.6 mmol/L 3.6-5.0 Serum or plasma chloride measurement (moles/volume) 106 mmol/L 98-107 Carbon dioxide 20 mmol/L 21-32 Serum or plasma anion gap determination (moles/volume) 10 mmol/L 5-14 Serum or plasma urea nitrogen measurement (mass/volume) 9 mg/dL 7-18 Serum or plasma creatinine measurement (mass/volume) 0.72 mg/dL 0.60-1.30 Serum or plasma urea nitrogen/creatinine mass ratio 13 NRG Serum or plasma creatinine measurement with calculation of estimated glomerular filtration rate > NRG Serum or plasma glucose measurement (mass/volume) 135 mg/dL 70-105 Serum or plasma calcium measurement (mass/volume) 8.2 mg/dL 8.5-10.1 Serum or plasma total bilirubin measurement (mass/volume) 0.8 mg/dL 0.1-1.0 Serum or plasma alkaline phosphatase measurement (enzymatic activity/volume) 69 U/L 40-136 Serum or plasma aspartate aminotransferase measurement (enzymatic activity/ volume) 36 U/L 5-34 Serum or plasma alanine aminotransferase measurement (enzymatic activity/volume ) 31 U/L 0-55 Serum or plasma protein measurement (mass/volume) 5.6 g/dL 6.4-8.2 Serum or plasma albumin measurement (mass/volume) 3.3 g/dL 3.2-4.5 Complete blood count (CBC) with automated white blood cell (WBC) differential - 07/13/16 06:05 Blood leukocytes automated count (number/volume) 13.4 10*3/uL 4.3-11.0 Blood erythrocytes automated count (number/volume) 3.31 10*6/uL 4.35-5.85 Venous blood hemoglobin measurement (mass/volume) 10.5 g/dL 13.3-17.7 Blood hematocrit (volume fraction) 30 % 40-54 Automated erythrocyte mean corpuscular volume 91 [foz_us] 80-99 Automated erythrocyte mean corpuscular hemoglobin (mass per erythrocyte) 32 pg 25-34 Automated erythrocyte mean corpuscular hemoglobin concentration measurement ( mass/volume) 35 g/dL 32-36 Automated erythrocyte distribution width ratio 12.9 % 10.0-14.5 Automated blood platelet count (count/volume) 216 10*3/uL 130-400 Automated blood platelet mean volume measurement 8.8 [foz_us] 7.4-10.4 Automated blood neutrophils/100 leukocytes 75 % 42-75 Automated blood lymphocytes/100 leukocytes 9 % 12-44 Blood monocytes/100 leukocytes 14 % 0-12 Automated blood eosinophils/100 leukocytes 1 % 0-10 Automated blood basophils/100 leukocytes 0 % 0-10 Blood neutrophils automated count (number/volume) 10.1 10*3 1.8-7.8 Blood lymphocytes automated count (number/volume) 1.3 10*3 1.0-4.0 Blood monocytes automated count (number/volume) 1.9 10*3 0.0-1.0 Automated eosinophil count 0.2 10*3/uL 0.0-0.3 Automated blood basophil count (count/volume) 0.0 10*3/uL 0.0-0.1 Comprehensive metabolic panel - 07/13/16 06:05 Serum or plasma sodium measurement (moles/volume) 139 mmol/L 135-145 Serum or plasma potassium measurement (moles/volume) 3.5 mmol/L 3.6-5.0 Serum or plasma chloride measurement (moles/volume) 106 mmol/L 98-107 Carbon dioxide 23 mmol/L 21-32 Serum or plasma anion gap determination (moles/volume) 10 mmol/L 5-14 Serum or plasma urea nitrogen measurement (mass/volume) 10 mg/dL 7-18 Serum or plasma creatinine measurement (mass/volume) 0.77 mg/dL 0.60-1.30 Serum or plasma urea nitrogen/creatinine mass ratio 13 NRG Serum or plasma creatinine measurement with calculation of estimated glomerular filtration rate > NRG Serum or plasma glucose measurement (mass/volume) 139 mg/dL 70-105 Serum or plasma calcium measurement (mass/volume) 9.1 mg/dL 8.5-10.1 Serum or plasma total bilirubin measurement (mass/volume) 0.7 mg/dL 0.1-1.0 Serum or plasma alkaline phosphatase measurement (enzymatic activity/volume) 67 U/L 40-136 Serum or plasma aspartate aminotransferase measurement (enzymatic activity/ volume) 35 U/L 5-34 Serum or plasma alanine aminotransferase measurement (enzymatic activity/volume ) 28 U/L 0-55 Serum or plasma protein measurement (mass/volume) 6.2 g/dL 6.4-8.2 Serum or plasma albumin measurement (mass/volume) 3.4 g/dL 3.2-4.5 Complete blood count (CBC) with automated white blood cell (WBC) differential - 10/14/17 10:29 Blood leukocytes automated count (number/volume) 13.7 10*3/uL 4.3-11.0 Blood erythrocytes automated count (number/volume) 4.62 10*6/uL 4.35-5.85 Venous blood hemoglobin measurement (mass/volume) 14.7 g/dL 13.3-17.7 Blood hematocrit (volume fraction) 42 % 40-54 Automated erythrocyte mean corpuscular volume 91 [foz_us] 80-99 Automated erythrocyte mean corpuscular hemoglobin (mass per erythrocyte) 32 pg 25-34 Automated erythrocyte mean corpuscular hemoglobin concentration measurement ( mass/volume) 35 g/dL 32-36 Automated erythrocyte distribution width ratio 13.5 % 10.0-14.5 Automated blood platelet count (count/volume) 234 10*3/uL 130-400 Automated blood platelet mean volume measurement 9.0 [foz_us] 7.4-10.4 Automated blood neutrophils/100 leukocytes 87 % 42-75 Automated blood lymphocytes/100 leukocytes 4 % 12-44 Blood monocytes/100 leukocytes 7 % 0-12 Automated blood eosinophils/100 leukocytes 1 % 0-10 Automated blood basophils/100 leukocytes 0 % 0-10 Blood neutrophils automated count (number/volume) 12.0 10*3 1.8-7.8 Blood lymphocytes automated count (number/volume) 0.6 10*3 1.0-4.0 Blood monocytes automated count (number/volume) 1.0 10*3 0.0-1.0 Automated eosinophil count 0.2 10*3/uL 0.0-0.3 Automated blood basophil count (count/volume) 0.0 10*3/uL 0.0-0.1 PT panel in platelet poor plasma by coagulation assay - 10/14/17 10:29 Prothrombin time (PT) in platelet poor plasma by coagulation assay 13.3 s 12.2-14.7 INR in platelet poor plasma or blood by coagulation assay 1.0 0.8-1.4 Activated partial thromboplastin time (aPTT) in platelet poor plasma bycoagulation assay - 10/14/17 10:29 Activated partial thromboplastin time (aPTT) in platelet poor plasma bycoagulation assay 24 s 24-35 Comprehensive metabolic panel - 10/14/17 10:29 Serum or plasma sodium measurement (moles/volume) 139 mmol/L 135-145 Serum or plasma potassium measurement (moles/volume) 4.3 mmol/L 3.6-5.0 Serum or plasma chloride measurement (moles/volume) 107 mmol/L 98-107 Carbon dioxide 21 mmol/L 21-32 Serum or plasma anion gap determination (moles/volume) 11 mmol/L 5-14 Serum or plasma urea nitrogen measurement (mass/volume) 16 mg/dL 7-18 Serum or plasma creatinine measurement (mass/volume) 0.89 mg/dL 0.60-1.30 Serum or plasma urea nitrogen/creatinine mass ratio 18 NRG Serum or plasma creatinine measurement with calculation of estimated glomerular filtration rate > NRG Serum or plasma glucose measurement (mass/volume) 152 mg/dL 70-105 Serum or plasma calcium measurement (mass/volume) 9.2 mg/dL 8.5-10.1 Serum or plasma total bilirubin measurement (mass/volume) 0.6 mg/dL 0.1-1.0 Serum or plasma alkaline phosphatase measurement (enzymatic activity/volume) 83 U/L 40-136 Serum or plasma aspartate aminotransferase measurement (enzymatic activity/ volume) 23 U/L 5-34 Serum or plasma alanine aminotransferase measurement (enzymatic activity/volume ) 24 U/L 0-55 Serum or plasma protein measurement (mass/volume) 7.4 g/dL 6.4-8.2 Serum or plasma albumin measurement (mass/volume) 4.2 g/dL 3.2-4.5 Magnesium - 10/14/17 10:29 Magnesium 1.9 mg/dL 1.8-2.4 Serum or plasma creatine kinase measurement (enzymatic activity/volume) - 10/14 10:29 Serum or plasma creatine kinase measurement (enzymatic activity/volume) 87 U/L 30-200 Serum or plasma creatine kinase MB measurement (enzymatic activity/volume) - 10:29 Serum or plasma creatine kinase MB measurement (enzymatic activity/volume) 2.2 ng/mL <6.6 Serum or plasma troponin i.cardiac measurement (mass/volume) - 10/14/17 10:29 Serum or plasma troponin i.cardiac measurement (mass/volume) < ng/ mL <0.30 Blood manual differential performed detection - 10/14/17 10:29 Blood monocytes/100 leukocytes 6 % NRG Manual blood segmented neutrophils/100 leukocytes 86 % NRG Blood band neutrophils/100 leukocytes 3 % NRG Manual blood lymphocytes/100 leukocytes 4 % NRG Manual eosinophils/100 leukocytes in nose 1 % NRG Manual blood basophils/100 leukocytes 0 % NRG Blood erythrocyte morphology finding identification NORMAL NRG Serum or plasma amylase measurement (enzymatic activity/volume) - 10/14/17 10: 29 Serum or plasma amylase measurement (enzymatic activity/volume) 59 U /L 25-125 Serum or plasma lithium measurement (moles/volume) - 10/14/17 10:29 BNP level 105.4 pg/mL <100.0 Lipase - 10/14/17 10:29 Lipase 41 U/L 8-78 Complete urinalysis with reflex to culture - 10/14/17 11:14 Urine color determination YELLOW NRG Urine clarity determination CLEAR NRG Urine pH measurement by test strip 5 5-9 Specific gravity of urine by test strip 1.020 1.016- 1.022 Urine protein assay by test strip, semi-quantitative 1+ NEGATIVE Urine glucose detection by automated test strip NEGATIVE NEGATIVE Erythrocytes detection in urine sediment by light microscopy NEGATIVE NEGATIVE Urine ketones detection by automated test strip NEGATIVE NEGATIVE Urine nitrite detection by test strip NEGATIVE NEGATIVE Urine total bilirubin detection by test strip NEGATIVE NEGATIVE Urine urobilinogen measurement by automated test strip (mass/volume) NORMAL NORMAL Urine leukocyte esterase detection by dipstick 1+ NEGATIVE Automated urine sediment erythrocyte count by microscopy (number/high power field) NONE NRG Automated urine sediment leukocyte count by microscopy (number/high power field ) [HPF] NRG Bacteria detection in urine sediment by light microscopy TRACE NRG Squamous epithelial cells detection in urine sediment by light microscopy 0-2 NRG Crystals detection in urine sediment by light microscopy NONE NRG Casts detection in urine sediment by light microscopy NONE NRG Mucus detection in urine sediment by light microscopy MODERATE NRG Complete urinalysis with reflex to culture NO NRG Encounters ACCT No. Visit Date/Time Discharge Status Pt. Type Provider Facility Loc./Unit Complaint [id number] 10/14/2017 10:06:00 10/14/2017 12:54:00 DIS Emergency LENIN DODELFINO [facility] ER CP,SOB,DIARRHEA,N/V [id number] 08/29/2016 14:36:00 08/29/2016 15:51:00 DIS Outpatient NATALIA CERDA MD [facility] REHAB S/P L TKR, OA LT KNEE [id number] 07/10/2016 05:55:00 07/13/2016 10:55:00 DIS Inpatient NATALIA CERDA MD [facility] 4TH LEFT KNEE OA [id number] 07/03/2016 09:31:00 07/03/2016 11:22:00 DIS Outpatient ZAIDA PRATT, NATALIA Oakes [facility] PREOP LEFT KNEE OA [id number] 07/11/2015 07:06:00 07/11/2015 13:40:00 DIS Outpatient CHELY AZAR MD [facility] [id number] 07/07/2015 05:37:00 07/07/2015 23:59:59 CLS Outpatient CHELY AZAR MD [facility] PREOP [id number] 07/05/2015 09:19:00 07/06/2015 10:05:00 DIS Inpatient LISA CELAYA MD [facility] 4TH [id number] 06/20/2015 12:11:00 06/20/2015 23:59:59 CLS Outpatient CHELY AZAR MD [facility] RAD [id number] 08/10/2014 13:13:00 08/10/2014 23:59:59 CLS Outpatient LISA CELAYA MD [facility] RAD [id number] 03/07/2014 09:04:00 03/07/2014 23:59:59 CLS Outpatient [id number] 02/15/2014 10:58:00 02/15/2014 23:59:59 CLS Outpatient [id number] 02/07/2014 11:27:00 02/07/2014 15:00:00 DIS Outpatient [id number] 02/03/2014 08:27:00 02/03/2014 23:59:59 CLS Outpatient [id number] 01/10/2014 19:00:00 01/18/2014 12:28:00 DIS Inpatient [id number] 01/10/2014 12:17:00 01/10/2014 23:59:59 CLS Outpatient [id number] 12/25/2013 07:45:00 12/25/2013 21:29:00 DIS Outpatient
== END 2017-10-14 12:54 | disposition home or self-care (01) ==
LOC: EDUNIT# 10:04 → ER 10:06
DX: K52.9 Noninfective gastroenteritis and colitis, unspecified (principal); G40.909 Epilepsy, unspecified, not intractable, without status epilepticus; I25.10 Atherosclerotic heart disease of native coronary artery without angina pectoris; Z90.49 Acquired absence of other specified parts of digestive tract; Z87.19 Personal history of other diseases of the digestive system; Z87.442 Personal history of urinary calculi; Z86.73 Personal history of transient ischemic attack (TIA), and cerebral infarction without residual deficits; Z90.79 Acquired absence of other genital organ(s); Z88.2 Allergy status to sulfonamides; Z96.653 Presence of artificial knee joint, bilateral
CPT/HCPCS: 36415; 71045; 71275; 74177; 80053; 81000; 82150; 82550; 82553; 83690; 83735; 83880; 84484; 85007; 85027; 85610; 85730; 93005; 93041; 96361; 96374; 96375

== ENCOUNTER → 2018-11-24 | Outpatient (CLI) | payer MEDICARE, OTHER ==
[~2018-11-24] MED LIST changes: -AMLO10TA2 PO; +AMLO10TA7 PO; +LACT1POW8 MC; -LOSA50TA36 PO; +LOSA50TA63 PO; +ONDA4TAB8 PO; -OXYC-197 PO; +OXYC1TAB87 PO; +PANT40TA2 PO
== END ==
LOC: CARD 09:45
PROVIDERS: ATTEND Family Medicine
DX: R01.2 Other cardiac sounds (principal); I35.0 Nonrheumatic aortic (valve) stenosis
CPT/HCPCS: 93306

== ENCOUNTER 2021-04-26 23:36 | Inpatient (IN) | payer MEDICARE, OTHER ==
[~2021-04-26] VITALS: Ht 170 cm; Wt 90.7 kg
[~2021-04-26 23:36] MED LIST changes: +AMLO-251 PO; -AMLO10TA7 PO; +TOLT2TAB19 PO; -TOLT2TAB5 PO; -TOLT4CAP13 PO; +TOLT4CAP26 PO
--- NOTE | 2021-04-26 23:55 | ED General ---
General Chief Complaint: General Problems/Pain Stated Complaint: WEAKNESS Source of Information: EMS Exam Limitations: Other (PT IS POOR HISTORIAN) History of Present Illness Date Seen by Provider: Apr 26, 2021 Time Seen by Provider: 23:36 Initial Comments PT ARRIVES VIA EMS FROM HOME PT GOT UP TO GO TO THE BATHROOM AND WAS TOO WEAK TO CONTINUE WALKING, SO HE SAT DOWN ON THE FLOOR DID NOT FALL OR HIT HIS HEAD NO SYNCOPE TOO WEAK TO STAND AND FAMILY MEMBER UNABLE TO HELP HIM UP NO COMPLAINTS OTHERWISE NO PARESTHESIAS OR MOTOR DEFICITS NO HEADACHE NO VISION CHANGES NO NAUSEA/VOMITING/DIARRHEA/ABDOMINAL PAIN NO CHEST PAIN NO SHORTNESS OF BREATH NO PAIN ANYWHERE EMS REPORTS THAT PT WENT TO DENTIST TODAY FOR A TOOTHACHE--PT ACKNOWLEDGES PAIN TO RIGHT LOWER MOLAR AREA. PT STATES THAT THEY DID NOT FIND ANYTHING WRONG WITH HIS TOOTH OR PRESCRIBE ANY MEDICATION EMS REPORT THAT PT HAD A BUSY DAY TODAY--DID ALOT OF WALKING, DOES NOT USE A WALKER OR ANY ASSISTIVE DEVICE, AND REPORTEDLY HAD BEEN FINE ALL DAY TODAY, EXCEPT FOR TOOTHACHE WHEN ASKED THE PT WHAT MEDICAL PROBLEMS HE HAS, HE STATES "NONE" WHEN ASKED THE PT WHAT MEDICATIONS HE TOOK , HE STATES "NONE" LIST OF PT'S MEDICATIONS, PMH AND PAST SURGICAL HISTORY IS SENT WITH PT BY FAMILY MEMBER AT HOME. PT HAD ONE VISIT HERE IN 2018 PT WAS HERE IN 2016 FOR KNEE SURGERY PT HAS HAD BOTH MODERNA COVID-19 VACCINES--LAST ONE 10/28/20 IS IN ROOM LATER, AND RELATES THAT PT DID SEE DENTIST TODAY, AND WAS FOUND TO HAVE A CAVITY, AND WAS SUPPOSED TO GO BACK TODAY AND HAVE A FILLING PLACED IN THE TOOTH. NO RX'S WERE GIVEN ALSO STATES THAT HE WAS A LITTLE BIT WEAK THIS AFTERNOON WHEN PCP: DR. DUNN Allergies and Home Medications Allergies Coded Allergies: Sulfa (Sulfonamide Antibiotics) (Unverified Allergy, Mild, HIVES, 07/03/16) Home Medications Acetaminophen 500 Mg Tablet, 500-1,000 MG PO Q8H PRN for PAIN-MILD (1-4), (Reported) Last Action: Reviewed Amlodipine Besylate 10 Mg Tablet, 10 MG PO DAILY, (Reported) Last Action: Reviewed Aspirin 81 Mg Tablet., 81 MG PO DAILY, (Reported) Last Action: Reviewed Atorvastatin Calcium 40 Mg Tablet, 40 MG PO DAILY, (Reported) Last Action: Reviewed Clopidogrel Bisulfate 75 Mg Tablet, 75 MG PO HS, (Reported) Last Action: Reviewed Losartan Potassium 50 Mg Tablet, 50 MG PO DAILY, (Reported) Last Action: Reviewed Multivitamin 1 Each Tablet, 1 EACH PO DAILY, (Reported) Last Action: Reviewed Oxybutynin Chloride 5 Mg Tablet, 5 MG PO BID, (Reported) Last Action: Reviewed Phenytoin Sodium Extended 100 Mg Capsule, 100 MG PO BID, (Reported) Last Action: Reviewed Vit C/E/Zn/Coppr/Lutein/Zeaxan 1 Each Capsule, 1 EACH PO BID, (Reported) Last Action: Reviewed Patient Home Medication List Home Medication List Reviewed: Yes Review of Systems Review of Systems Constitutional: see HPI, weakness EENTM: no symptoms reported Respiratory: no symptoms reported Cardiovascular: no symptoms reported Gastrointestinal: no symptoms reported Genitourinary: no symptoms reported Musculoskeletal: no symptoms reported Skin: no symptoms reported Psychiatric/Neurological: See HPI; Denies Headache, Denies Numbness, Denies Paresthesia, Denies Tingling, Denies Tremors; Other (GENERALIZED WEAKNESS) Past Kcoxdvh-Zasccq-Hhwngz Hx Immunizations Up To Date Tetanus Booster (TDap): Unknown Seasonal Allergies Seasonal Allergies: No Past Medical History Surgery/Hospitalization HX: 1956--APPENDECTOMY/RUPTURED APPENDIX 1990--TURP BY DR. AZAR 2000--LEFT KNEE ARTHROSCOPY BY DR. 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 MERLOS 2005--RIGHT KNEE ARTHROSCOPY BY DR. CERDA 2006--CHOLECYSTECTOMY BY DR. LU 2006--RIGHT TOTAL KNEE REPLACEMENT 2009--HOSPITALIZED X 1 WEEK FOR VIRAL INFECTION 2010--EEG DONE SHOWING EPILEPSY 2013--CARDIAC CATH-DX WITH CAD BUT NO INTERVENTION-BY DR. HERCULES 2013--KIDNEY STONE WITH PSEUDO BOWEL OBSTRUCTION-HOSPITALIZED X 1 WEEK/NO SURGERY 2013--COLONOSCOPY--NORMAL--BY DR. MAYORGA 2014--CYSTOSCOPY-SMALL AREA OF CANCER IN BLADDER-BY DR. 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 AZAR 2015--LEFT TOTAL KNEE REPLACEMENT BY DR. CERDA Surgeries: Yes (CARDIAC CATH-NO INTERVENTION; BILATERAL TOTAL KNEE REPLACEMENTS) Appendectomy, Bladder Surgery, Cardiac, Eye Surgery, Gallbladder, Joint Replacement, Orthopedic, Transurethral Resection Respiratory: No Currently Using CPAP: No Currently Using BIPAP: No Cardiac: Yes Coronary Artery Disease, High Cholesterol, Hypertension Neurological: Yes (POOR MEMORY) Seizure Disorder, Stroke Reproductive Disorders: No Sexually Transmitted Disease: No HIV/AIDS: No Genitourinary: Yes Benign Prostatic Hyperpl, Prostate Problems, Kidney Stones Gastrointestinal: Yes (S/P JAYLEEN) Gall Bladder Disease Musculoskeletal: Yes Arthritis Endocrine: No HEENT: Yes Cataract, Macular Degeneration Loss of Vision: Denies Hearing Impairment: Hard of Hearing Cancer: Yes Bladder Did You Recieve Any Treatments: Yes What Type of Treatment Did You: Surgical Intervention BLADDER CANCER TREATED IN 2005 WITH BCG, TREATED IN 2014 WITH SURGERY/TURBT Psychosocial: No Integumentary: No Blood Disorders: No Adverse Reaction/Blood Tranf: No Family Medical History Abdominal aortic aneurysm 09 BROTHER History of - respiratory disease 09 BROTHER Myocardial infarction 09 BROTHER Stroke 03 MOTHER 09 BROTHER 09 SISTER Physical Exam Vital Signs Vital Signs - First Documented 04/26/21 23:36 Temp 37.0 Pulse 92 Resp 16 B/P (MAP) 113/72 (86) Pulse Ox 92 O2 Delivery Room Air Capillary Refill : Height, Weight, BMI Height: 5'8.00" Weight: 205lbs. 3.0oz. [id number]; 31.2 BMI Method:Stated General Appearance: No Apparent Distress, WD/WN HEENT: PERRL/EOMI Neck: Normal Inspection Respiratory: Normal Breath Sounds, No Accessory Muscle Use, No Respiratory Distress Cardiovascular: Regular Rate, Rhythm, No Edema, No JVD, No Murmur, Normal Peripheral Pulses Gastrointestinal: Non Tender, Soft Extremity: Normal Capillary Refill, Normal Inspection, Normal Range of Motion, Non Tender, No Pedal Edema Neurologic/Psychiatric: Alert, Oriented x3 (BUT LIMITED MEMORY AT THIS TIME), No Motor/Sensory Deficits, Normal Mood/Affect, solar energy advisor II-XII Norm as Tested Progress/Results/Core Measures Suspected Sepsis SIRS Temperature: Pulse: Respiratory Rate: Laboratory Tests 04/26/21 23:43: White Blood Count 12.4H Blood Pressure / Mean: Laboratory Tests 04/26/21 23:43: Creatinine 0.95, INR Comment 1.1, Platelet Count 198, Total Bilirubin 0.6 Results/Orders Lab Results Laboratory Tests Test 04/26/21 23:43 Range/Units White Blood Count 12.4 H 4.3-11.0 10^3/uL Red Blood Count 4.23 L 4.30-5.52 10^6/uL Hemoglobin 13.5 13.3-17.7 g/dL Hematocrit 39 L 40-54 % Mean Corpuscular Volume 92 80-99 fL Mean Corpuscular Hemoglobin 32 25-34 pg Mean Corpuscular Hemoglobin Concent 35 32-36 g/dL Red Cell Distribution Width 13.3 10.0-14.5 % Platelet Count 198 130-400 10^3/uL Mean Platelet Volume 8.6 L 9.0-12.2 fL Immature Granulocyte % (Auto) 1 % Neutrophils (%) (Auto) 83 H 42-75 % Lymphocytes (%) (Auto) 7 L 12-44 % Monocytes (%) (Auto) 9 0-12 % Eosinophils (%) (Auto) 0 0-10 % Basophils (%) (Auto) 0 0-10 % Neutrophils # (Auto) 10.3 H 1.8-7.8 10^3/uL Lymphocytes # (Auto) 0.9 L 1.0-4.0 10^3/uL Monocytes # (Auto) 1.1 H 0.0-1.0 10^3/uL Eosinophils # (Auto) 0.0 0.0-0.3 10^3/uL Basophils # (Auto) 0.0 0.0-0.1 10^3/uL Immature Granulocyte # (Auto) 0.1 0.0-0.1 10^3/uL Erythrocyte Sedimentation Rate 18 0-30 MM/HR Prothrombin Time 14.2 12.2-14.7 SEC INR Comment 1.1 0.8-1.4 Activated Partial Thromboplast Time 33 24-35 SEC Sodium Level 138 135-145 MMOL/L Potassium Level 3.6 3.6-5.0 MMOL/L Chloride Level 104 98-107 MMOL/L Carbon Dioxide Level 21 21-32 MMOL/L Anion Gap 13 5-14 MMOL/L Blood Urea Nitrogen 12 7-18 MG/DL Creatinine 0.95 0.60-1.30 MG/DL Estimat Glomerular Filtration Rate 76 BUN/Creatinine Ratio 13 Glucose Level 188 H 70-105 MG/DL Calcium Level 9.2 8.5-10.1 MG/DL Corrected Calcium 9.2 8.5-10.1 MG/DL Magnesium Level 1.6 1.6-2.4 MG/DL Total Bilirubin 0.6 0.1-1.0 MG/DL Aspartate Amino Transf (AST/SGOT) 41 H 5-34 U/L Alanine Aminotransferase (ALT/SGPT) 31 0-55 U/L Alkaline Phosphatase 86 40-136 U/L Total Creatine Kinase 97 30-200 U/L Creatine Kinase MB 1.6 <6.6 NG/ML Myoglobin 165.0 H 10.0-92.0 NG/ML Troponin I 0.044 H <0.028 NG/ML B-Type Natriuretic Peptide 151.4 H <100.0 PG/ML Total Protein 7.2 6.4-8.2 GM/DL Albumin 4.0 3.2-4.5 GM/DL Lipase 25 8-78 U/L TSH [place] Testing 1.07 0.35-4.94 UIU/ML Acetaminophen Level < 10 L 10-30 UG/ML Phenytoin (Dilantin) Level 6.7 L 10.0-20.0 ug/mL Serum Alcohol < 10 <10 MG/DL My Orders Orders - DELFINO PHELPS DO Ed Iv/Invasive Line Start (04/26/21 23:43) Ekg Tracing (04/26/21:43) Monitor-Rhythm Ecg Trace Only (04/26/21:43) Ct Head Wo-R/O Stroke (04/26/21 23:43) Acetaminophen (04/26/21 23:43) Alcohol (04/26/21 23:43) Cbc With Automated Diff (04/26/21:43) Comprehensive Metabolic Panel (04/26/21:43) Creatine Kinase (04/26/21:43) Creatine Kinase Mb (04/26/21:43) Erythrocyte Sedimentation Rate (04/26/21:43) Lipase (04/26/21 23:43) Magnesium (04/26/21 23:43) Protime With Inr (04/26/21:43) Partial Thromboplastin Time (04/26/21:43) Thyroid Analyzer (04/26/21:43) Ua Culture If Indicated (04/26/21:43) Myoglobin Serum (04/26/21:43) Troponin I (04/26/21 23:43) Dilantin (Phenytoin) (04/26/21 23:43) Chest 1 View, Ap/Pa Only (04/27/21 00:01) BNP (04/27/21 00:52) Covid 19 Inhouse Test (04/27/21 01:38) Influenza A And B By Pcr (04/27/21 01:38) Vital Signs/I&O 04/26/21 23:36 Temp 37.0 Pulse 92 Resp 16 B/P (MAP) 113/72 (86) Pulse Ox 92 O2 Delivery Room Air Capillary Refill : Progress Note : Progress Note PT HAD NO COMPLAINTS OF ANY KIND DURING ENTIRE ER STAY ARRIVES, AND REPORTS THAT HE HAD BEEN TO DENTIST TODAY, AND A CAVITY WAS FOUND AND IS TO HAVE IT FILLED 04/27/21 SHE REPORTS THAT HE WAS A LITTLE WEAK THIS AFTERNOON AFTER VISITING THE DENTIST, BUT WAS WALKING FINE SHE STATES TONIGHT, WHEN HE GOT UP TO GO TO THE BATHROOM, HIS LEGS WERE JUST TOO WEAK TO STAND AND HE SLOWLY WENT DOWN TO SIT ON FLOOR--SHE WITNESSED IT, AND THERE WAS NO FALL OR SYNCOPE OR INJURY OF ANY KIND. SHE REPORTS THAT HE WAS TOO WEAK TO STAND UP ON HIS OWN AND SHE COULD NOT LIFT HIM. 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 DUNN, ACCEPTS PT FOR ADMIT. WILL CONSULT CARDIOLOGY IN AM Impression Primary Impression: Generalized weakness Additional Impressions: Elevated troponin History of seizures HTN (hypertension) Disposition: ADMITTED INPATIENT Condition: Stable Admissions Decision to Admit Reason: Admit from ER (General) Decision to Admit/Date: Apr 27, 2021 Time/Decision to Admit Time: 01:40 Departure-Patient Inst. Referrals: ADEBAYO DUNN MD (PCP/Family) Primary Care Physician DELFINO PHELPS DO Apr 26, 2021 23:55
[2021-04-26 23:58] LABS: BASOPHILS % (AUTO) 0 % (0-10); EOSINOPHILS % (AUTO) 0 % (0-10); HEMATOCRIT 39 % (40-54); HEMOGLOBIN 13.5 g/dL (13.3-17.7); LYMPHOCYTES # (AUTO) 0.9 10^3/uL (1.0-4.0); LYMPHOCYTES % (AUTO) 7 % (12-44); MEAN CORPUSCULAR HEMOGLOBIN 32 pg (25-34); MEAN CORPUSCULAR HGB CONC 35 g/dL (32-36); MEAN CORPUSCULAR VOLUME 92 fL (80-99); MEAN PLATELET VOLUME 8.6 fL (9.0-12.2); MONOCYTES # (AUTO) 1.1 10^3/uL (0.0-1.0); MONOCYTES % (AUTO) 9 % (0-12); NEUTROPHILS # (AUTO) 10.3 10^3/uL (1.8-7.8); NEUTROPHILS % (AUTO) 83 % (42-75); PLATELET COUNT 198 10^3/uL (130-400); WHITE BLOOD COUNT 12.4 10^3/uL (4.3-11.0)
[2021-04-27] VITALS (19 sets, daily range): BP systolic 114–195; BP diastolic 63–87
[2021-04-27 00:16] LABS: ALANINE AMINOTRANSFERASE 31 U/L (0-55); ALKALINE PHOSPHATASE 86 U/L (40-136); BILIRUBIN,TOTAL 0.6 MG/DL (0.1-1.0); BUN/CREATININE RATIO 13; CALCIUM 9.2 MG/DL (8.5-10.1); CARBON DIOXIDE 21 MMOL/L (21-32); CHLORIDE 104 MMOL/L (98-107); CREATINE KINASE 97 U/L (30-200); CREATININE SERUM 0.95 MG/DL (0.60-1.30); GFR ESTIMATED 76; GLUCOSE 188 MG/DL (70-105); INR 1.1 (0.8-1.4); LIPASE 25 U/L (8-78); MAGNESIUM 1.6 MG/DL (1.6-2.4); POTASSIUM 3.6 MMOL/L (3.6-5.0); PROTHROMBIN TIME PATIENT 14.2 SEC (12.2-14.7); SODIUM 138 MMOL/L (135-145); TOTAL PROTEIN 7.2 GM/DL (6.4-8.2)
[2021-04-27 00:17] LABS: ACETAMINOPHEN < 10 UG/ML (10-30)
[2021-04-27 00:20] LABS: ERYTHROCYTE SEDIMENTATION RATE 18 MM/HR (0-30)
[2021-04-27 00:36] LABS: CREATINE KINASE MB 1.6 NG/ML (<6.6); TSH (THYROID ANALYZER) 1.07 UIU/ML (0.35-4.94)
[2021-04-27 02:23] LABS: BILIRUBIN,URINE NEGATIVE (NEGATIVE); COLOR,URINE YELLOW; GLUCOSE, URINE (UA) NEGATIVE (NEGATIVE); KETONES,URINE TRACE (NEGATIVE); LEUKOCYTE ESTERASE ,URINE NEGATIVE (NEGATIVE); NITRITE,URINE NEGATIVE (NEGATIVE); PH,URINE 5.5 (5-9); PROTEIN,URINE 2+ (NEGATIVE)
[2021-04-27 02:30] LABS: CLARITY,URINE SL CLOUDY; RBC,URINE >100 /HPF
[2021-04-27 02:31] LABS: BACTERIA,URINE NEGATIVE /HPF
[2021-04-27] MEDS ORDERED: ACETAMINOPHEN 500 MG TAB (TYLENOL) PO PRN (04:00)
[2021-04-27] MEDS ORDERED: ONDANSETRON 4 MG/2 ML (SDV) Z0FRAN IV PRN (04:00)
[2021-04-27] MEDS ORDERED: morphine INJ 4 MG/ML 1 ML (VIAL/SYRINGE) IV PRN (04:15)
[2021-04-27] MEDS ORDERED: NITROGLYCERIN 0.4 MG SL TABS BTL 25'S SL PRN (04:15)
[2021-04-27] MEDS: D5 1/2 NS 1000 ML IV SOLUTION 1,000 ML IV SCH ×2 (04:42→17:49)
--- NOTE | 2021-04-27 06:02 | Diagnostic Imaging Report ---
EXAMINATION: Chest 1 view HISTORY: AMS, WEAKNESS COMPARISON: 10/14/2017 FINDINGS: Stable enlargement of the cardiac silhouette. Low lung volumes without consolidation, pleural effusion, or pneumothorax. Degenerative changes of the thoracic spine. Osseous structures are otherwise intact. IMPRESSION: 1. Low lung volumes without other acute abnormality in the chest. Dictated by: Dictated on workstation # [id number]
[2021-04-27 06:13] LABS: TRIGLYCERIDES 118 MG/DL (<150); VLDL CHOLESTEROL 24 MG/DL (5-40)
[2021-04-27 06:18] LABS: CHOLESTEROL 142 MG/DL (< 200)
[2021-04-27 06:19] LABS: HDL CHOLESTEROL 32 MG/DL (40-60)
--- NOTE | 2021-04-27 06:21 | Diagnostic Imaging Report ---
EXAMINATION: CT head without contrast. TECHNIQUE: Multiple contiguous axial images were obtained through the brain without the use of intravenous contrast. All CT scans use one or more of the following dose optimizing techniques: automated exposure control, MA and/or KvP adjustment based on patient size and exam type or iterative reconstruction. HISTORY: Weakness and altered mental status. COMPARISON: CT head 08/04/2010 FINDINGS: Mild diffuse cerebral volume loss with proportional enlargement of the ventricles and sulci. Moderate hypodensities throughout the supratentorial white matter posterior hemispheres. No acute intracranial hemorrhage or abnormal extra-axial fluid collections are present. Calcification of the intracranial ICAs. No hyperdense vessel. The calvarium is intact. The mastoid air cells are clear. The visualized paranasal sinuses are clear. The orbits are normal. IMPRESSION: 1. No acute intracranial abnormality. 2. Chronic microangiopathy and volume loss. Evaluation for acute stroke would be be more sensitive with MRI given the background white matter changes. 3. Agree with preliminary interpretation. Dictated by: Dictated on workstation # [id number]
[2021-04-27 06:28] LABS: CREATINE KINASE MB 2.5 NG/ML (<6.6)
--- NOTE | 2021-04-27 08:42 | History & Physical ---
History of Present Illness History of Present Illness Reason for visit/HPI PT IS AN 85 Y/O MALE WHO IS KNOWN TO ME FROM CLINIC. HE PRESENTED TO THE HOSPITAL AFTER HAVING SIGNIFICANT AND PROGRESSIVE WEAKNESS/FATIGUE OVER THE DAY YESTERDAY. HE APPARENTLY WAS FEELING POORLY IN THE EVENING YESTERDAY WITH LEG WEAKNESS AND HIS ATTEMPTED TO HELP HIM UP FROM BED TO GO TO THE RESTROOM WHEN HIS LEGS GAVE OUT AND HE WAS LOWERED TO THE FLOOR. EMS WAS CALLED AND HE WAS TRANSPORTED TO THE HOSPITAL EMERGENCY DEPARTMENT. HE WAS FOUND TO HAVE A SLIGHTLY ELEVATED WHITE COUNT AND ELEVATED TROPONIN AND BNP ON ADMISSION WITH NEED FOR FURTHER WORK UP AND MANAGEMENT OF HIS ILLNESS. THIS MORNING VERL DENIES ANY COMPLAINTS, DOES NOT COMPLETELY REMEMBER THE EVENTS OF LAST NIGHT. Date of Admission Apr 27, 2021 at 01:40 Date Seen by a Provider: Apr 27, 2021 Time Seen by a Provider: 08:10 Attending Physician Adebayo Pablo MD Admitting Physician Adebayo Pablo MD Consult CARDIOLOGY - DR. HERCULES Allergies and Home Medications Allergies Coded Allergies: Sulfa (Sulfonamide Antibiotics) (Unverified Allergy, Mild, HIVES, 07/03/16) Home Medications Amlodipine Besylate 10 Mg Tablet, 10 MG PO DAILY, (Reported) Aspirin 81 Mg Tablet.dr, 81 MG PO DAILY, (Reported) Last Action: Continued Atorvastatin Calcium 40 Mg Tablet, 40 MG PO HS, (Reported) Last Action: Continued Clopidogrel Bisulfate 75 Mg Tablet, 75 MG PO DAILY, (Reported) Last Action: Continued Lactobacillus Acidophilus 1 Gm Powder, 1 GM MC QID Prescribed by: DELFINO PHELPS on 10/14/17 1234 Last Action: Held Losartan Potassium 50 Mg Tablet, 50 MG PO DAILY, (Reported) Multivitamin 1 Each Tablet, 1 TAB PO DAILY, (Reported) Mv-Mn/FA/Vit K/Lycop/Lut/Zeaxa 1 Each Tablet, 1 TAB PO DAILY, (Reported) Ondansetron 4 Mg Tab.rapdis, 4 MG PO Q4H Prescribed by: DELFINO PHELPS on 10/14/17 1234 Oxycodone HCl/Acetaminophen 1 Each Tablet, 1 EACH PO Q4H Prescribed by: NATALIA CERDA on 07/10/16 1050 Pantoprazole Sodium 40 Mg Tablet., 40 MG PO DAILY Prescribed by: DELFINO PHELPS on 2/6/18 1234 Phenytoin Sodium Extended 100 Mg Capsule, 100 MG PO BID, (Reported) Last Action: Continued Tolterodine Tartrate 4 Mg Cap.er.24h, 4 MG PO BID, (Reported) Patient Home Medication List Home Medication List Reviewed: Yes Past Pexhzon-Ddnszh-Hkbwuy Hx Patient Social History Marrital Status: Living Status: LIVES WITH SPOUSE Employed/Student: retired Tobacco Use?: No Substance use?: No Alcohol Use?: No Pt feels they are or have been: No Immunizations Up To Date Date of Influenza Vaccine: May 22, 2016 First/Initial COVID19 Vaccinat: 09/28/20 Second COVID19 Vaccination Malcolm: 10/28/20 Tetanus Booster (TDap): Unknown Hepatitis A: No Hepatitis B: No Date of Pneumonia Vaccine: May 22, 2016 Seasonal Allergies Seasonal Allergies: No Current Status Advance Directives: Yes Advance Directive Location: Family to bring in copy Communicates: Verbally Primary Language: Danish Preferred Spoken Language: Danish Is interpretation needed?: No Sensory deficits: Hearing impairment Past Medical History Surgeries: Appendectomy, Bladder Surgery, Cardiac, Gallbladder, Joint Replacement (RIGHT TOTAL KNEE REPLACEMENT), Orthopedic, Transurethral Resection Currently Using CPAP: No Currently Using BIPAP: No Coronary Artery Disease, High Cholesterol, Hypertension Seizure Disorder, Stroke Sexually Transmitted Disease: No HIV/AIDS: No Benign Prostatic Hyperpl, Prostate Problems, Kidney Stones Gall Bladder Disease Arthritis Cataract, Macular Degeneration Loss of Vision: Denies Hearing Impairment: Denies Bladder Did You Recieve Any Treatments: Yes What Type of Treatment Did You: Surgical Intervention Blood Disorders: No Adverse Reaction/Blood Tranf: No Family Medical History Reviewed and Corrections made Abdominal aortic aneurysm 09 BROTHER History of - respiratory disease 09 BROTHER Myocardial infarction 09 BROTHER Stroke 03 MOTHER 09 BROTHER 09 SISTER Heart Disease, Hypertension, Stroke, Other Conditions/Hx (BROTHER WITH ABD AORTIC ANEURYSM) Review of Systems Constitutional: No chills, No fever; malaise, weakness EENTM: No hoarseness, No throat pain Respiratory: No cough, No dyspnea on exertion, No short of breath Cardiovascular: No chest pain; Hx of Intervention; No palpitations Gastrointestinal: No abdominal pain, No nausea, No vomiting Genitourinary: frequency; No hematuria Musculoskeletal: muscle weakness (GENERALIZED) Skin: no symptoms reported Psychiatric/Neurological: Denies Anxiety, Denies Depressed, Denies Pre-Existing Deficit; Weakness All Other Systems Reviewed Negative Unless Noted: Yes Physical Exam Vital Signs Vital Signs - First Documented 04/26/21 23:36 Temp 37.0 Pulse 92 Resp 16 B/P (MAP) 113/72 (86) Pulse Ox 92 O2 Delivery Room Air Capillary Refill : Less Than 3 Seconds Height, Weight, BMI Height: 5'8.00" Weight: 205lbs. 3.0oz. 93.965968ik; 31.38 BMI Method:Stated General Appearance: No Apparent Distress, WD/WN Eyes: Bilateral Eye Normal Inspection, Bilateral Eye PERRL, Bilateral Eye EOMI HEENT: PERRL/EOMI Neck: Full Range of Motion, Normal Inspection, Non Tender, Supple Respiratory: Chest Non Tender, No Accessory Muscle Use, No Respiratory Distress, Crackles (LEFT BASE) Cardiovascular: Regular Rate, Rhythm, No Murmur, Normal Peripheral Pulses Gastrointestinal: Normal Bowel Sounds, No Organomegaly, No Pulsatile Mass, Non Tender, Soft Rectal: Deferred Back: Normal Inspection, No Vertebral Tenderness Extremity: Normal Capillary Refill, Normal Inspection, Normal Range of Motion, Non Tender, No Calf Tenderness, No Pedal Edema Neurologic/Psychiatric: Alert, Oriented x3, No Motor/Sensory Deficits, Normal Mood/Affect, enterprise architect manager II-XII Norm as Tested Skin: Normal Color, Warm/Dry Lymphatic: No Adenopathy Assessment/Plan Assessment and Plan NON ST ELEVATION AL MILD CHF HX OF CORONARY ARTERY DISEASE GENERALIZED WEAKNESS WITH FALL AT HOME SEIZURE DISORDER ON CHRONIC PHENYTOIN THERAPY HYPERTENSION HYPERLIPIDEMIA HX OF BLADDER CANCER URGE INCONTINENCE ESOPHAGEAL REFLUX NON ST AL ELEVATION AL WITH MILD CHF WITH HX OF CORONARY ARTERY DISEASE AND INTERVENTIONS - INCREASE IN TROPONIN AND BNP TODAY - I CALLED TO DR. HERCULES - PT'S CONTINUOUS IMPROVEMENT INTERN -WILL SEE PT TODAY. - PT NPO FOR POTENTIAL INTERVENTION - RESTART PLAVIX AND ASA TOMORROW AM - ECHO TODAY GENERALIZED WEAKNESS WITH FALL AT HOME - WILL START THERAPY ONCE CLEARED BY CARDIOLOGY SEIZURE DISORDER ON CHRONIC PHENYTOIN THERAPY - PHENYTOIN LEVEL PENDING - RESTART HOME REGIMEN TODAY HYPERTENSION - DEFER TO CARDIOLOGY - - HOME MEDS NOT YET RECONCILED HYPERLIPIDEMIA - RESUME STATIN THERAPY TONIGHT HX OF BLADDER CANCER WITH URGE INCONTINENCE - MONITOR SYMPTOMS - RESTART TOVIAZ TOMORROW. ESOPHAGEAL REFLUX - START PPI THERAPY LOVENOX FOR DVT PROPHYLAXIS GI PROPHYLAXIS WITH PPI THERAPY Admission Diagnosis NON ST ELEVATION AL MILD CHF HX OF CORONARY ARTERY DISEASE GENERALIZED WEAKNESS WITH FALL AT HOME SEIZURE DISORDER ON CHRONIC PHENYTOIN THERAPY HYPERTENSION HYPERLIPIDEMIA HX OF BLADDER CANCER URGE INCONTINENCE ESOPHAGEAL REFLUX Admission Status: Inpatient Order (span 2 midnights) Reason for Inpatient Admission: INPT ADMISSION FOR AL, CHF, WEAKNESS WILL REQUIRE 48- 72 HOURS FOR STABILIZATION AND THERAPY. ADEBAYO PABLO MD Apr 27, 2021 08:42
[2021-04-27] MEDS ORDERED: ASPIRIN E.C. 81 MG (ECOTRIN) TAB PO SCH (09:00)
[2021-04-27] MEDS ORDERED: VIT1CAPS44 PO (10:56)
[2021-04-27] MEDS ORDERED: ACET-2267 PO (10:56)
[2021-04-27] MEDS ORDERED: MULT-1136 PO (10:56)
[2021-04-27] MEDS ORDERED: OXYB5TAB13 PO (10:56)
[2021-04-27] MEDS ORDERED: ASPI-1238 PO (10:56)
[2021-04-27] MEDS ORDERED: PANTOPRAZOLE 40 MG (PROTONIX) TAB PO ONE (11:00)
[2021-04-27] MEDS ORDERED: ENOXAPARIN 40 MG/0.4 ML (LOVENOX) SYR SC SCH ×2 (11:30→21:00)
[2021-04-27] MEDS ORDERED: HEParin (CATH LAB) 2,000 ML IV ONE (13:20)
[2021-04-27] MEDS ORDERED: LIDOCAINE 1% INJ 20 ML 20 ML VIAL ONE (13:20)
--- NOTE | 2021-04-27 14:33 | Consultation-Cardiology ---
HPI-Cardiology Cardiology Consultation: Date of Consultation 04/27/21 Time Seen by a Provider: 10:00 Date of Admission Attending Physician Shaneka Pablo MD Admitting Physician Shaneka Pablo MD Consulting Physician KENNA HERCULES MD, MA, FACP, FACC, FSCAI, CCDS Physician requesting consult: Dr Pablo HPI: Chief Complaint: Reason for consultation: Elevated troponin HPI 85 yo man who developed profound weakness and malaise yesterday, to the point that he could not get himself up from the floor. No cp or palp or butch syncope. Some shortness of breath. Feels better today. Denies swelling Review of Systems-Cardiology Review of Systems Constitutional: As described under HPI Eyes: No vision change Ears/Nose/Throat: No ear discharge, No nasal drainage, No recent hearing loss Respiratory: As described under HPI Cardiovascular: As described under HPI Gastrointestinal: No diarrhea, No nausea, No vomiting Genitourinary: No dysuria, No hematuria, No urine frequency changes Musculoskeletal: No back pain, No joint pain Skin: No rash, No ulcerations Psychiatric/Neurological: No seizure, No focal weakness, No syncope Hematologic: No bleeding abnormalities All Other Systems Reviewed Negative Unless Noted: Yes [id number] Hx Patient Social History Marrital Status: Living Status: LIVES WITH SPOUSE Employed/Student: retired Have you traveled recently?: No Alcohol Use?: No Pt feels they are or have been: No Immunizations Up To Date Tetanus Booster (TDap): Unknown Date of Pneumonia Vaccine: May 22, 2016 Date of Influenza Vaccine: May 22, 2016 Past Medical History PMH As described under Assessment. Family Medical History Family History: Abdominal aortic aneurysm 09 BROTHER History of - respiratory disease 09 BROTHER Myocardial infarction 09 BROTHER Stroke 03 MOTHER 09 BROTHER 09 SISTER Allergies and Home Medications Allergies Coded Allergies: Sulfa (Sulfonamide Antibiotics) (Unverified Allergy, Mild, HIVES, 07/03/16) Home Medications Acetaminophen 500 Mg Tablet, 500-1,000 MG PO Q8H PRN for PAIN-MILD (1-4), (Re ported) Last Action: Reviewed Amlodipine Besylate 10 Mg Tablet, 10 MG PO DAILY, (Reported) Last Action: Reviewed Aspirin 81 Mg Tablet.dr, 81 MG PO DAILY, (Reported) Last Action: Reviewed Atorvastatin Calcium 40 Mg Tablet, 40 MG PO DAILY, (Reported) Last Action: Reviewed Clopidogrel Bisulfate 75 Mg Tablet, 75 MG PO HS, (Reported) Last Action: Reviewed Losartan Potassium 50 Mg Tablet, 50 MG PO DAILY, (Reported) Last Action: Reviewed Multivitamin 1 Each Tablet, 1 EACH PO DAILY, (Reported) Last Action: Reviewed Oxybutynin Chloride 5 Mg Tablet, 5 MG PO BID, (Reported) Last Action: Reviewed Phenytoin Sodium Extended 100 Mg Capsule, 100 MG PO BID, (Reported) Last Action: Reviewed Vit C/E/Zn/Coppr/Lutein/Zeaxan 1 Each Capsule, 1 EACH PO BID, (Reported) Last Action: Reviewed Patient Home Medication List Home Medication List Reviewed: Yes Physical Exam-Cardiology Physical Exam Vital Signs/I&O 04/27/21 04/27/21 04/27/21 04/27/21 03:38 03:50 04:00 04:00 Temp 37.0 37.5 Pulse 83 81 79 Resp 16 24 22 B/P (MAP) 134/70 (86) 126/72 (90) 137/72 (93) Pulse Ox 95 93 93 95 O2 Delivery Room Air Room Air Room Air Room Air 04/27/21 04/27/21 04/27/21 04/27/21 04:15 04:19 04:30 04:45 Pulse 81 78 80 68 Resp 24 20 22 B/P (MAP) 134/66 (88) 125/72 (89) 114/76 (89) Pulse Ox 93 92 93 O2 Delivery Room Air Room Air Room Air 04/27/21 04/27/21 04/27/21 04/27/21 05:00 06:00 07:00 07:30 Temp 36.8 Pulse 71 66 63 67 Resp 20 18 18 B/P (MAP) 120/80 (93) 129/73 (91) 146/70 (95) Pulse Ox 94 97 93 O2 Delivery Room Air Room Air Room Air 04/27/21 04/27/21 04/27/21 09:00 12:00 13:00 Temp 37.0 Pulse 60 55 Resp 14 B/P (MAP) 162/71 (101) Pulse Ox 94 O2 Delivery Room Air Room Air Capillary Refill : Less Than 3 Seconds Constitutional: AAO x 3, well-developed, well-nourished HEENT: EOMI; No xanthelasmas are seen Neck: carotid pulses are 2 + bilaterally, with good upstrokes Respiratory: No accessory muscle use; other (fair to good, bilateral air entry, somewhat diminished at the bases) Cardiovascular: regular rate-rhythm, S1 and S2, systolic murmur (soft JEAN-PAUL at card base) Gastrointestinal: No tender; soft; No guarding, No rebound; audible bowel sounds Extremities: No clubbing, No cyanosis, No significant edema Neurologic/Psychiatric: oriented x 3, other (moves all limbs equally) Skin: No rash on exposed areas, No ulcerations on exposed areas Data Review Labs Laboratory Tests 04/26/21 23:43: White Blood Count 12.4H, Red Blood Count 4.23L, Hemoglobin 13.5, Hematocrit 39L, Mean Corpuscular Volume 92, Mean Corpuscular Hemoglobin 32, Mean Corpuscular Hemoglobin Concent 35, Red Cell Distribution Width 13.3, Platelet Count 198, Mean Platelet Volume 8.6L, Immature Granulocyte % (Auto) 1, Neutrophils (%) (Auto) 83H, Lymphocytes (%) (Auto) 7L, Monocytes (%) (Auto) 9, Eosinophils (%) (Auto) 0, Basophils (%) (Auto) 0, Neutrophils # (Auto) 10.3H, Lymphocytes # (Auto) 0.9L, Monocytes # (Auto) 1.1H, Eosinophils # (Auto) 0.0, Basophils # (Auto) 0.0, Immature Granulocyte # (Auto) 0.1, Erythrocyte Sedimentation Rate 18, Prothrombin Time 14.2, INR Comment 1.1, Activated Partial Thromboplast Time 33, Sodium Level 138, Potassium Level 3.6, Chloride Level 104, Carbon Dioxide Level 21, Anion Gap 13, Blood Urea Nitrogen 12, Creatinine 0.95, Estimat Glomerular Filtration Rate 76, BUN/Creatinine Ratio 13, Glucose Level 188H, Calcium Level 9.2, Corrected Calcium 9.2, Magnesium Level 1.6, Total Bilirubin 0.6, Aspartate Amino Transf (AST/SGOT) 41H, Alanine Aminotransferase (ALT/SGPT) 31, Alkaline Phosphatase 86, Total Creatine Kinase 97, Creatine Kinase MB 1.6, Myoglobin 165.0H, Troponin I 0.044H, B-Type Natriuretic Peptide 151.4H, Total Protein 7.2, Albumin 4.0, Lipase 25, TSH Foster Testing 1.07, Acetaminophen Level < 10L, Serum Alcohol < 10 04/27/21 02:06: Urine Color YELLOW, Urine Clarity SL CLOUDY, Urine pH 5.5, Urine Specific Gravi ty 1.025H, Urine Protein 2+H, Urine Glucose (UA) NEGATIVE, Urine Ketones TRACEH, Urine Nitrite NEGATIVE, Urine Bilirubin NEGATIVE, Urine Urobilinogen 0.2, Urine Leukocyte Esterase NEGATIVE, Urine RBC (Auto) 3+H, Urine RBC >100H, Urine WBC NONE, Urine Squamous Epithelial Cells 10-25H, Urine Crystals NONE, Urine Bacteria NEGATIVE, Urine Casts NONE, Urine Mucus MODERATEH, Urine Culture Indicated NO, Influenza Type A (RT-PCR) Not Detected, Influenza Type B (RT-PCR) Not Detected, SARS-CoV-2 RNA (RT-PCR) Not Detected 04/27/21 05:44: Creatine Kinase MB 2.5, Troponin I 0.071H, B-Type Natriuretic Peptide 206.7H, Triglycerides Level 118, Cholesterol Level 142, LDL Cholesterol Direct 88, VLDL Cholesterol 24, HDL Cholesterol 32L Laboratory Tests 04/26/21 23:43 A/P-Cardiology Assessment/Admission Diagnosis Ac NSTEMI CAD - Last card cath in 2013: Mild CAD, LVEF 55%, elevated LVEDP H/o seizure disorder Hypertension Hyperlipidemia H/o bladder CA Discussion and Recomendations * Treat with DAPT and statin * Card cath recommended. I reviewed the rationale, procedure, risks, benefits, potential complications and alternatives of card cath and possible ad hoc PCI with him. He understands and provides informed consent * Discussed his case with Dr Pablo this * Further recs based on hosp course and cath findings * KENNA Bernard MD FACP [facility] CCDS Apr 27, 2021 14:33
[2021-04-27] MEDS ORDERED: fentaNYL INJ 100 MCG/2 ML AMP ONE ×2 (14:39→18:18)
[2021-04-27] MEDS ORDERED: MIDAZOLAM 5 MG/5 ML (VERSED) VIAL ONE (14:39)
[2021-04-27] MEDS ORDERED: NS IV 1000 ML 1,000 ML ONE (15:16)
[2021-04-27] MEDS ORDERED: HEParin 1000 UNIT/ML (10ML VIAL) FOR BOLUS ONE (16:01)
[2021-04-27] MEDS ORDERED: EPTIFIBATIDE BOLUS 20 ML IV ONE (16:02)
[2021-04-27] MEDS ORDERED: ASPIRIN 81 MG CHEW (CHILDREN'S ASA) ONE (16:20)
[2021-04-27] MEDS ORDERED: CLOPIDOGREL 75 MG (PLAVIX) TABLET ONE (16:20)
[2021-04-27] MEDS ORDERED: meTOprolol SUCCINATE 100 MG (TOPROL XL) TAB PO NR (16:30)
[2021-04-27] MEDS ORDERED: CLOPIDOGREL 75 MG (PLAVIX) TABLET PO NR (16:30)
[2021-04-27] MEDS ORDERED: amLODIPine 5 MG (NORVASC) TAB PO PRN (16:30)
[2021-04-27] MEDS: NS IV 1000 ML 1,000 ML IV SCH ×2 (16:45→21:56)
[2021-04-27] MEDS ORDERED: PATIENT MAY USE OWN MEDS, ALL PO SCH (16:45)
--- NOTE | 2021-04-27 17:49 | Tele-ICU Progress Note ---
Progress Note case reviewed with rn. pt with hx of weakness has elevated troponin. went for cath. avaiting for report. No need for orders from tele icu at present. no cosult for tele icu. Focused Exam Height, Weight, BMI Height: 5'8.00" Weight: 205lbs. 3.0oz. [id number]; 31.38 BMI Method:Stated HEATHER BLISS MD Apr 27, 2021 17:49
[2021-04-27 17:54] LABS: BILIRUBIN,URINE NEGATIVE (NEGATIVE); CLARITY,URINE CLEAR; COLOR,URINE YELLOW; GLUCOSE, URINE (UA) NEGATIVE (NEGATIVE); KETONES,URINE NEGATIVE (NEGATIVE); LEUKOCYTE ESTERASE ,URINE NEGATIVE (NEGATIVE); NITRITE,URINE NEGATIVE (NEGATIVE); PH,URINE 5.5 (5-9); PROTEIN,URINE NEGATIVE (NEGATIVE)
[2021-04-27 18:00] LABS: BACTERIA,URINE TRACE /HPF; RBC,URINE RARE /HPF; WBC,URINE RARE /HPF
[2021-04-27] MEDS ORDERED: ATROPINE INJ 0.4 MG/ML SDV ONE (18:18)
[2021-04-27] MEDS ORDERED: ATROPINE INJECTION 1 MG/10 ML SYR (ABBOTT) ONE (18:21)
[2021-04-27] MEDS ORDERED: ATROPINE INJECTION 1 MG/10 ML SYR (ABBOTT) IV ONE (18:30)
[2021-04-27] MEDS ORDERED: fentaNYL INJ 100 MCG/2 ML AMP IVP PRN (18:30)
[2021-04-27] MEDS ORDERED: CLOPIDOGREL 75 MG (PLAVIX) TABLET PO SCH (21:00)
[2021-04-27] MEDS: PHENYTOIN 100 MG (DILANTIN) CAP PO SCH (21:55)
--- NOTE | 2021-04-27 21:57 | CARDIAC CATHETERIZATION ---
DATE OF SERVICE: 04/27/2021 CARDIAC CATHETERIZATION, CORONARY INTERVENTION REPORT The patient is an 85-year-old gentleman who was hospitalized with generalized weakness and troponin was mildly elevated, indicative of a small non-ST elevation myocardial infarction. Cardiac catheterization was carried out after having obtained an informed consent for cardiac catheterization and possible ad hoc coronary intervention. DESCRIPTION OF PROCEDURE: He was brought to the cardiac catheterization laboratory in a fasting state. Right groin was prepared and draped in the usual sterile fashion. Lidocaine 1% was used for local anesthesia. Modified Seldinger technique was used to advance a 5-Prydeinig sheath in right femoral artery, 5-Prydeinig JL4 catheter was used for left coronary angiography, 5-Prydeinig JR4 catheter was used for right coronary angiography, 5-Prydeinig pigtail catheter was used for left heart catheterization and left ventricular angiography. Percutaneous intervention to the left anterior descending diagonal. Following completion of the diagnostic procedure, we exchanged the sheath over a wire for a 6-Prydeinig sheath. We used a 6-Prydeinig JL4.5 guide catheter to engage the left coronary artery. We advanced a ChoICE floppy wire across an 80% stenosis in the mid portion of a sub-branch of the first diagonal branch. The patient received 6000 units of intravenous heparin and double bolus of Integrilin during the interventional procedure. We carried out balloon angioplasty with 2.0 x 15 mm balloon. This reduced the stenosis from 80% to less than 20%. Flow throughout the vessel is normal. He tolerated the procedure well. Angioplasty equipment was removed. Sheath was sutured in place for manual sheath removal at the floor. HEMODYNAMICS: Left ventricular end-diastolic pressure following coronary angiography was 14 mmHg. There was no significant pressure gradient on pullback across the aortic valve. Ascending aortic pressure was 138/70 with a mean of 95 mmHg. CORONARY ANGIOGRAPHY: Left main coronary artery is free of significant disease. Left anterior descending artery is free of significant disease except that a sub-branch of the first diagonal branch has 80% mid vessel stenosis, to which successful balloon angioplasty was carried out that reduced the stenosis to less than 20%. Left circumflex artery does not exhibit significant disease. Right coronary artery is dominant and has a mild proximal and mid vessel plaque. LEFT VENTRICULAR ANGIOGRAPHY: Left ventricular angiography was carried out in the right anterior oblique projection. Global left ventricular systolic function is normal. No regional wall motion abnormalities seen. Left ventricular ejection fraction approximately 60%. CONCLUSIONS: 1. Coronary artery disease primarily consisting of approximately 80% stenosis in the sub-branch of the first diagonal branch, to which successful balloon angioplasty was carried out with reduction of stenosis from 80% to less than 20% residual. The rest of the coronary vessels have mild plaque. 2. Well-preserved global left ventricular systolic function with ejection fraction approximately 60%. 3. Mildly elevated left ventricular end-diastolic pressure. DISCUSSION AND RECOMMENDATIONS: Treatment is with dual antiplatelet therapy, statin, and beta kalyn. He remains hospitalized for observation after this interventional procedure. Job ID: [id number] DocumentID: [id number] Dictated Date: 04/27/2021 16:41:46 Track Layer Head Date: 04/27/2021 21:57:15 Dictated By: KENNA HERCULES MD, MA, FACP, FACC,
[2021-04-28] VITALS (13 sets, daily range): BP systolic 125–163; BP diastolic 60–78
[2021-04-28 04:16] LABS: BASOPHILS # (AUTO) 0.1 10^3/uL (0.0-0.1); BASOPHILS % (AUTO) 1 % (0-10); EOSINOPHILS # (AUTO) 0.3 10^3/uL (0.0-0.3); EOSINOPHILS % (AUTO) 2 % (0-10); HEMATOCRIT 36 % (40-54); HEMOGLOBIN 11.7 g/dL (13.3-17.7); LYMPHOCYTES # (AUTO) 1.7 10^3/uL (1.0-4.0); LYMPHOCYTES % (AUTO) 15 % (12-44); MEAN CORPUSCULAR HEMOGLOBIN 31 pg (25-34); MEAN CORPUSCULAR HGB CONC 33 g/dL (32-36); MEAN CORPUSCULAR VOLUME 96 fL (80-99); MONOCYTES # (AUTO) 1.5 10^3/uL (0.0-1.0); MONOCYTES % (AUTO) 13 % (0-12); NEUTROPHILS # (AUTO) 7.4 10^3/uL (1.8-7.8); NEUTROPHILS % (AUTO) 68 % (42-75); PLATELET COUNT 167 10^3/uL (130-400); WHITE BLOOD COUNT 10.9 10^3/uL (4.3-11.0)
[2021-04-28 04:27] LABS: ALBUMIN 3.3 GM/DL (3.2-4.5)
[2021-04-28 04:29] LABS: CALCIUM 8.5 MG/DL (8.5-10.1)
[2021-04-28 04:30] LABS: TOTAL PROTEIN 6.1 GM/DL (6.4-8.2)
[2021-04-28 04:32] LABS: BILIRUBIN,TOTAL 0.4 MG/DL (0.1-1.0)
[2021-04-28 04:34] LABS: CREATININE SERUM 0.85 MG/DL (0.60-1.30)
[2021-04-28 04:37] LABS: MAGNESIUM 1.9 MG/DL (1.6-2.4)
[2021-04-28] MEDS: D5 1/2 NS 1000 ML IV SOLUTION 1,000 ML IV SCH (06:43)
[2021-04-28] MEDS ORDERED: ASPIRIN E.C. 81 MG (ECOTRIN) TAB PO SCH (09:00)
[2021-04-28] MEDS ORDERED: meTOprolol SUCCINATE 100 MG (TOPROL XL) TAB PO SCH (09:00)
[2021-04-28] MEDS ORDERED: PANTOPRAZOLE 40 MG (PROTONIX) TAB PO SCH (09:00)
[2021-04-28] MEDS ORDERED: CLOPIDOGREL 75 MG (PLAVIX) TABLET PO SCH ×2 (09:00)
[2021-04-28] MEDS ORDERED: ASPIRIN 81 MG CHEW (CHILDREN'S ASA) PO SCH (09:00)
[2021-04-28] MEDS: PHENYTOIN 100 MG (DILANTIN) CAP PO SCH (09:05)
--- NOTE | 2021-04-28 09:15 | Progress Note ---
Subjective Subjective Date Seen by Provider: Apr 28, 2021 Time Seen by Provider: 10:30 Underwent cardiac cath with intervention yesterday- This AM patient reports doing much better- he raised his arms and legs up and his confirmed that he is significantly improved compared to his weakness yesterday. Patient would like to be d/c to home. Review of Systems General: No Chills HEENT: No Head Aches Pulmonary: No Dyspnea, No Cough Cardiovascular: No: Chest Pain, Palpitations Gastrointestinal: No: Nausea, Vomiting Genitourinary: No Dysuria Neurological: Weakness (but much improved.) All Other Systems Reviewed All Other Systems Reviewed: Yes Objective Exam Vital Signs Vital Signs Date Time Temp Pulse Resp B/P (MAP) Pulse Ox O2 Delivery O2 Flow Rate FiO2 04/28/21 09:00 47 14 139/64 (117) 98 Room Air 04/28/21 08:00 48 22 150/76 (100) 98 Room Air 04/28/21 08:00 36.4 04/28/21 07:00 44 30 160/78 (114) 97 Room Air 04/28/21 07:00 44 04/28/21 06:00 48 16 153/71 (98) 99 Room Air 04/28/21 05:00 53 23 150/77 (101) 98 Room Air 04/28/21 04:00 59 14 137/72 (93) 98 Room Air 04/28/21 03:00 47 29 137/72 (93) 97 Room Air 04/28/21 02:00 52 21 139/64 (89) 98 Room Air 04/28/21 01:00 46 23 136/60 (85) 99 Room Air 04/28/21 01:00 54 04/28/21 00:00 54 23 125/72 (89) 97 Room Air 04/27/21 23:22 36.7 04/27/21 23:00 50 21 161/64 (96) 98 Room Air 04/27/21 22:00 49 20 140/63 (88) 99 Room Air 04/27/21 21:00 58 12 131/64 (86) 98 Room Air 04/27/21 21:00 94 Nasal Cannula 2.00 04/27/21 20:00 65 10 172/84 (113) 99 Room Air 04/27/21 19:46 37.1 04/27/21 19:00 60 23 161/75 (103) 96 Room Air 04/27/21 19:00 61 04/27/21 18:00 63 3 174/78 (102) 99 Room Air 04/27/21 17:45 69 9 181/79 (110) 99 Room Air 04/27/21 17:30 66 24 195/87 (124) 94 Room Air 04/27/21 17:15 60 15 176/80 (126) 98 Room Air 04/27/21 17:00 60 10 156/68 (116) Room Air 04/27/21 13:00 55 04/27/21 12:00 37.0 60 14 162/71 (101) Room Air I & O 04/28/21 07:00 Intake Total 750 ml Output Total 450 ml Balance 300 ml General Appearance: No Apparent Distress, WD/WN Eyes: Bilateral Eye Normal Inspection, Bilateral Eye PERRL, Bilateral Eye EOMI HEENT: PERRL/EOMI Neck: Normal Inspection Respiratory: Normal Breath Sounds, No Accessory Muscle Use, No Respiratory Distress Cardiovascular: Regular Rate, Rhythm, No Edema, No JVD, No Murmur, Normal Peripheral Pulses Gastrointestinal: Non Tender, Soft Rectal: Deferred Back: Normal Inspection, No Vertebral Tenderness Extremity: Normal Capillary Refill, Normal Inspection, Normal Range of Motion, Non Tender, No Pedal Edema Neurologic/Psychiatric: Alert, Oriented x3, No Motor/Sensory Deficits, Normal Mood/Affect, steward/stewardess club car II-XII Norm as Tested Skin: Normal Color, Warm/Dry Lymphatic: No Adenopathy Results Lab Laboratory Tests 04/27/21 17:45: Urine Color YELLOW, Urine Clarity CLEAR, Urine pH 5.5, Urine Specific Angie <=1.005, Urine Protein NEGATIVE, Urine Glucose (UA) NEGATIVE, Urine Ketones NEGATIVE, Urine Nitrite NEGATIVE, Urine Bilirubin NEGATIVE, Urine Urobilinogen 0.2, Urine Leukocyte Esterase NEGATIVE, Urine RBC (Auto) 1+H, Urine RBC RARE, Urine WBC RARE, Urine Squamous Epithelial Cells NONE, Urine Renal Epithelial Cells NONE, Urine Crystals NONE, Urine Bacteria TRACE, Urine Casts NONE, Urine Mucus NEGATIVE, Urine Culture Indicated NO 04/28/21 03:50: White Blood Count 10.9, Red Blood Count 3.73L, Hemoglobin 11.7L, Hematocrit 36L, Mean Corpuscular Volume 96, Mean Corpuscular Hemoglobin 31, Mean Corpuscular Hemoglobin Concent 33, Red Cell Distribution Width 13.5, Platelet Count 167, Mean Platelet Volume 9.0, Immature Granulocyte % (Auto) 0, Neutrophils (%) (Auto) 68, Lymphocytes (%) (Auto) 15, Monocytes (%) (Auto) 13H, Eosinophils (%) (Auto) 2, Basophils (%) (Auto) 1, Neutrophils # (Auto) 7.4, Lymphocytes # (Auto) 1.7, Monocytes # (Auto) 1.5H, Eosinophils # (Auto) 0.3, Basophils # (Auto) 0.1, Immature Granulocyte # (Auto) 0.0, Sodium Level 137, Potassium Level 4.0, Chloride Level 106, Carbon Dioxide Level 22, Anion Gap 9, Blood Urea Nitrogen 13, Creatinine 0.85, Estimat Glomerular Filtration Rate 86, BUN/Creatinine Ratio 15, Glucose Level 114H, Calcium Level 8.5, Corrected Calcium 9.1, Magnesium Level 1.9, Total Bilirubin 0.4, Aspartate Amino Transf (AST/SGOT) 37H, Alanine Aminotransferase (ALT/SGPT) 31, Alkaline Phosphatase 69, Total Protein 6.1L, Albumin 3.3 Assessment/Plan Assessment/Plan Assessment and Plan 04/28/21- s/p cath yesterday. -weakness much improved- patient would like to be discharged to home- Patient may discharge to home if Dr. Lorenz agrees. will be with him at home. Weakness has significantly improved. U/A negative for UTI. Interesting that his weakness improved with cardiac cath/intervention. Problems: (1) NSTEMI (non-ST elevated myocardial infarction) (2) CAD (coronary artery disease) Assessment & Plan: 04/27/21---CONCLUSIONS: 1. Coronary artery disease primarily consisting of approximately 80% stenosis in the sub-branch of the first diagonal branch, to which successful balloon angioplasty was carried out with reduction of stenosis from 80% to less than 20% residual. The rest of the coronary vessels have mild plaque. 2. Well-preserved global left ventricular systolic function with ejection fraction approximately 60%. 3. Mildly elevated left ventricular end-diastolic pressure. --dual anticoag therapy- plavix, aspirin (3) History of seizures Assessment & Plan: phenytoin level a little low -continue phenytoin. (4) Generalized weakness Assessment & Plan: improved (5) Elevated troponin OLY LUX MD Apr 28, 2021 09:15
--- NOTE | 2021-04-28 09:33 | Tele-ICU Progress Note ---
Subjective Date Seen by a Provider: Apr 28, 2021 Time Seen by a Provider: 08:25 Subjective/Events-last exam This virtual visit was conducted using real time audio/video. Thank you for asking us to see this patient. HPC: Recent events: Sp/PTCA. No problems overnight per RM. PE: comfortable. VSS. HEENT: No obvious masses, adenopathy or JVD. Chest: clear to auscultation. CV: RRR S1 S2 No murmur or added sounds. Abd: Non-tender. Bowel sounds y. : Unremarkable. Singh N. SAFETY AND HEALTH MANAGER/psychiatric: Alert and oriented, grossly intact. No obvious focal findings. Extremities: No edema. Capillary refill < 3 seconds. Skin: unremarkable. Results: Elevated BG 114. Decreased Hb 11.7. CXR unremarkable. A/P: S/P PTCA Available chart/ vitals / labs / images reviewed. Video assessment done using teleICU camera, rest of exam as per RN. Critical Care: critically ill patient. OK to D/C or stepdown if Cardiology agrees. Discussed with SHAYLEE Vickers. Asked RN to reach out to eICU if any questions or concerns later. Time spent with patient/coordination of care with other health professionals (mins): 10 Sepsis Event Evaluation Height, Weight, BMI Height: 5'8.00" Weight: 205lbs. 3.0oz. [id number]; 31.38 BMI Method:Stated Exam Exam Patient acknowledged, consented, and participated in this virtual visit which was conducted using real time audio/video Vital Signs Date Time Temp Pulse Resp B/P (MAP) Pulse Ox O2 Delivery O2 Flow Rate FiO2 04/28/21 09:00 47 14 139/64 (117) 98 Room Air 04/28/21 08:00 48 22 150/76 (100) 98 Room Air 04/28/21 08:00 36.4 04/28/21 07:00 44 30 160/78 (114) 97 Room Air 04/28/21 07:00 44 04/28/21 06:00 48 16 153/71 (98) 99 Room Air 04/28/21 05:00 53 23 150/77 (101) 98 Room Air 04/28/21 04:00 59 14 137/72 (93) 98 Room Air 04/28/21 03:00 47 29 137/72 (93) 97 Room Air 04/28/21 02:00 52 21 139/64 (89) 98 Room Air 04/28/21 01:00 46 23 136/60 (85) 99 Room Air 04/28/21 01:00 54 04/28/21 00:00 54 23 125/72 (89) 97 Room Air 04/27/21 23:22 36.7 04/27/21 23:00 50 21 161/64 (96) 98 Room Air 04/27/21 22:00 49 20 140/63 (88) 99 Room Air 04/27/21 21:00 58 12 131/64 (86) 98 Room Air 04/27/21 21:00 94 Nasal Cannula 2.00 04/27/21 20:00 65 10 172/84 (113) 99 Room Air 04/27/21 19:46 37.1 04/27/21 19:00 60 23 161/75 (103) 96 Room Air 04/27/21 19:00 61 04/27/21 18:00 63 3 174/78 (102) 99 Room Air 04/27/21 17:45 69 9 181/79 (110) 99 Room Air 04/27/21 17:30 66 24 195/87 (124) 94 Room Air 04/27/21 17:15 60 15 176/80 (126) 98 Room Air 04/27/21 17:00 60 10 156/68 (116) Room Air 04/27/21 13:00 55 04/27/21 12:00 37.0 60 14 162/71 (101) Room Air I & O 04/28/21 07:00 Intake Total 750 ml Output Total 450 ml Balance 300 ml Height & Weight Height: 5'8.00" Weight: 205lbs. 3.0oz. [id number]; 31.38 BMI Method:Stated General Appearance: No Apparent Distress, WD/WN HEENT: PERRL/EOMI Neck: Normal Inspection Respiratory: Normal Breath Sounds, No Accessory Muscle Use, No Respiratory Distress Cardiovascular: Regular Rate, Rhythm, No Edema, No JVD, No Murmur, Normal Peripheral Pulses Capillary Refill: Less Than 3 Seconds Extremity: Normal Capillary Refill, Normal Inspection, Normal Range of Motion, Non Tender, No Pedal Edema Neurologic/Psychiatric: Alert, Oriented x3 (BUT LIMITED MEMORY AT THIS TIME), No Motor/Sensory Deficits, Normal Mood/Affect, vocational evaluator II-XII Norm as Tested Skin: Normal Color, Warm/Dry Lymphatic: No Adenopathy Results Lab Laboratory Tests 04/26/21 23:43 04/28/21 03:50 Assessment/Plan Assessment/Plan see free text Time spent on discussion(mins): 0 ACT [place] MD Apr 28, 2021 09:33
[2021-04-28] MEDS: NS IV 1000 ML 1,000 ML IV SCH (12:45)
--- NOTE | 2021-04-28 14:43 | Progress Note - Cardiology ---
Cardiology SOAP Progress Note Subjective: No cp or palp or syncope No shortness of breath Weakness has resolved No focal weakness No n/v/d No groin or leg discomfort or discoloration Objective: I&O/Vital Signs 04/28/21 04/28/21 04/28/21 04/28/21 03:00 04:00 05:00 06:00 Pulse 47 59 53 48 Resp 29 14 23 16 B/P (MAP) 137/72 (93) 137/72 (93) 150/77 (101) 153/71 (98) Pulse Ox 97 98 98 99 O2 Delivery Room Air Room Air Room Air Room Air 04/28/21 04/28/21 04/28/21 04/28/21 07:00 07:00 08:00 08:00 Temp 36.4 Pulse 44 44 48 Resp 30 22 B/P (MAP) 160/78 (114) 150/76 (100) Pulse Ox 97 98 O2 Delivery Room Air Room Air 04/28/21 04/28/21 04/28/21 04/28/21 08:30 09:00 10:00 11:00 Pulse 47 46 46 Resp 14 10 18 B/P (MAP) 139/64 (117) 150/69 (96) 163/72 (102) Pulse Ox 98 96 98 O2 Delivery Room Air Room Air Room Air Room Air 04/28/21 04/28/21 12:00 13:00 Pulse 46 51 Resp 25 B/P (MAP) 142/72 (95) Pulse Ox 97 O2 Delivery Room Air 04/28/21 00:00 Intake Total 650 ml Output Total 200 ml Balance 450 ml Weight (Pounds): 205 Weight (Ounces): 3.0 Weight (Calculated Kilograms): [id number] Constitutional: AAO x 3, well-developed, well-nourished Respiratory: No accessory muscle use; other (fair to good, bilateral air entry, somewhat diminished at the bases) Cardiovascular: regular rate-rhythm, S1 and S2, systolic murmur (soft JEAN-PAUL at card base) Gastrointestional: No tender; soft; No guarding, No rebound; audible bowel sounds Extremities: No clubbing, No cyanosis, No significant edema Neurologic/Psychiatric: oriented x 3, other (moves all limbs equally) Skin: No rash on exposed areas, No ulcerations on exposed areas Results/Procedures: Labs Laboratory Tests 8/20/21 17:45: Urine Color YELLOW, Urine Clarity CLEAR, Urine pH 5.5, Urine Specific [place] <=1.005, Urine Protein NEGATIVE, Urine Glucose (UA) NEGATIVE, Urine Ketones NEGATIVE, Urine Nitrite NEGATIVE, Urine Bilirubin NEGATIVE, Urine Urobilinogen 0.2, Urine Leukocyte Esterase NEGATIVE, Urine RBC (Auto) 1+H, Urine RBC RARE, Urine WBC RARE, Urine Squamous Epithelial Cells NONE, Urine Renal Epithelial Cells NONE, Urine Crystals NONE, Urine Bacteria TRACE, Urine Casts NONE, Urine Mucus NEGATIVE, Urine Culture Indicated NO 04/28/21 03:50: White Blood Count 10.9, Red Blood Count 3.73L, Hemoglobin 11.7L, Hematocrit 36L, Mean Corpuscular Volume 96, Mean Corpuscular Hemoglobin 31, Mean Corpuscular Hemoglobin Concent 33, Red Cell Distribution Width 13.5, Platelet Count 167, Mean Platelet Volume 9.0, Immature Granulocyte % (Auto) 0, Neutrophils (%) (Auto) 68, Lymphocytes (%) (Auto) 15, Monocytes (%) (Auto) 13H, Eosinophils (%) (Auto) 2, Basophils (%) (Auto) 1, Neutrophils # (Auto) 7.4, Lymphocytes # (Auto) 1.7, Monocytes # (Auto) 1.5H, Eosinophils # (Auto) 0.3, Basophils # (Auto) 0.1, Immature Granulocyte # (Auto) 0.0, Sodium Level 137, Potassium Level 4.0, Chloride Level 106, Carbon Dioxide Level 22, Anion Gap 9, Blood Urea Nitrogen 13, Creatinine 0.85, Estimat Glomerular Filtration Rate 86, BUN/Creatinine Ratio 15, Glucose Level 114H, Calcium Level 8.5, Corrected Calcium 9.1, Magnesium Level 1.9, Total Bilirubin 0.4, Aspartate Amino Transf (AST/SGOT) 37H, Alanine Aminotransferase (ALT/SGPT) 31, Alkaline Phosphatase 69, Total Protein 6.1L, Albumin 3.3 Laboratory Tests 04/26/21 23:43 04/28/21 03:50 A/P: Assessment: CAD - Ac NSTEMI on 04/26/20 treated with PCI (see below) - Card cath of 04/27/21: 70-80 midvessel stenosis of a subbranch of D1 treated successfully with balloon angioplasty, mild disease in other cors, LVEDP 14 mmHg, LVEF 60% - Echo on 04/27/21: LVEF 55-65%, grade 1 diastolic dysfunction, mod LA enlargement, mod MAC, mild AI, PASP 20-25 mmHg Sinus juan luis H/o seizure disorder Hypertension Hyperlipidemia H/o bladder CA Plan: * Continue treatment with DAPT and statin * D/c beta-kalyn because of considerable sinus juan luis * Continue treatment with amlodipine and losartan * I discussed his cath findings and intervention with him * Outpt f/u advised KENNA HERCULES MD FACP FAC [facility] Apr 28, 2021 14:43
--- NOTE | 2021-04-28 16:44 | Discharge Summary ---
Discharge Summary Hospital Course Problems/Dx: (1) NSTEMI (non-ST elevated myocardial infarction) (2) CAD (coronary artery disease) (3) History of seizures Status: Acute (4) Generalized weakness Status: Acute (5) Elevated troponin Status: Acute Hospital Course Date of Admission: Apr 27, 2021 at 01:40 Admission Diagnosis : NON ST ELEVATION [place] MILD CHF HX OF CORONARY ARTERY DISEASE GENERALIZED WEAKNESS WITH FALL AT HOME SEIZURE DISORDER ON CHRONIC PHENYTOIN THERAPY HYPERTENSION HYPERLIPIDEMIA HX OF BLADDER CANCER URGE INCONTINENCE ESOPHAGEAL REFLUX Family Physician/Provider: Shaneka Pablo MD Date of Discharge: 04/28/21 Discharge Diagnosis: NON ST ELEVATION VT MILD CHF HX OF CORONARY ARTERY DISEASE GENERALIZED WEAKNESS WITH FALL AT HOME SEIZURE DISORDER ON CHRONIC PHENYTOIN THERAPY HYPERTENSION HYPERLIPIDEMIA HX OF BLADDER CANCER URGE INCONTINENCE ESOPHAGEAL REFLUX Hospital Course: PT IS AN 85 Y/O MALE WHO IS KNOWN TO ME FROM CLINIC. HE PRESENTED TO THE HOSPITAL AFTER HAVING SIGNIFICANT AND PROGRESSIVE WEAKNESS/FATIGUE OVER THE DAY YESTERDAY. HE APPARENTLY WAS FEELING POORLY IN THE EVENING YESTERDAY WITH LEG WEAKNESS AND HIS ATTEMPTED TO HELP HIM UP FROM BED TO GO TO THE RESTROOM WHEN HIS LEGS GAVE OUT AND HE WAS LOWERED TO THE FLOOR. EMS WAS CALLED AND HE WAS TRANSPORTED TO THE HOSPITAL EMERGENCY DEPARTMENT. HE WAS FOUND TO HAVE A SLIGHTLY ELEVATED WHITE COUNT AND ELEVATED TROPONIN AND BNP ON ADMISSION WITH NEED FOR FURTHER WORK UP AND MANAGEMENT OF HIS ILLNESS. THIS MORNING VERL DENIES ANY COMPLAINTS, DOES NOT COMPLETELY REMEMBER THE EVENTS OF LAST NIGHT. 04/28/21- s/p cath 04/27/21 . 1. Coronary artery disease primarily consisting of approximately 80% stenosis in the sub-branch of the first diagonal branch, to which successful balloon angioplasty was carried out with reduction of stenosis from 80% to less than 20% residual. The rest of the coronary vessels have mild plaque. 2. Well-preserved global left ventricular systolic function with ejection fraction approximately 60%. 3. Mildly elevated left ventricular end-diastolic pressure. --Continue dual anticoag therapy- plavix, aspirin -weakness much improved- patient would like to be discharged to home- Patient may discharge to home if Dr. Lorenz agrees. will be with him at home. Weakness has significantly improved. U/A negative for UTI. Interesting that his weakness improved with cardiac cath/intervention. - Discharged to home with follow up wiht Dr. Lassiter and Dr. Lorenz. Labs and Pending Lab Test: Laboratory Tests 04/27/21 17:45: Urine Color YELLOW, Urine Clarity CLEAR, Urine pH 5.5, Urine Specific [place] <=1.005, Urine Protein NEGATIVE, Urine Glucose (UA) NEGATIVE, Urine Ketones NEGATIVE, Urine Nitrite NEGATIVE, Urine Bilirubin NEGATIVE, Urine Urobilinogen 0.2, Urine Leukocyte Esterase NEGATIVE, Urine RBC (Auto) 1+H, Urine RBC RARE, Urine WBC RARE, Urine Squamous Epithelial Cells NONE, Urine Renal Epithelial Cells NONE, Urine Crystals NONE, Urine Bacteria TRACE, Urine Casts NONE, Urine Mucus NEGATIVE, Urine Culture Indicated NO 04/28/21 03:50: White Blood Count 10.9, Red Blood Count 3.73L, Hemoglobin 11.7L, Hematocrit 36L, Mean Corpuscular Volume 96, Mean Corpuscular Hemoglobin 31, Mean Corpuscular Hemoglobin Concent 33, Red Cell Distribution Width 13.5, Platelet Count 167, Mean Platelet Volume 9.0, Immature Granulocyte % (Auto) 0, Neutrophils (%) (Auto) 68, Lymphocytes (%) (Auto) 15, Monocytes (%) (Auto) 13H, Eosinophils (%) (Auto) 2, Basophils (%) (Auto) 1, Neutrophils # (Auto) 7.4, Lymphocytes # (Auto) 1.7, Monocytes # (Auto) 1.5H, Eosinophils # (Auto) 0.3, Basophils # (Auto) 0.1, Immature Granulocyte # (Auto) 0.0, Sodium Level 137, Potassium Level 4.0, Chloride Level 106, Carbon Dioxide Level 22, Anion Gap 9, Blood Urea Nitrogen 13, Creatinine 0.85, Estimat Glomerular Filtration Rate 86, BUN/Creatinine Ratio 15, Glucose Level 114H, Calcium Level 8.5, Corrected Calcium 9.1, Magnesium Level 1.9, Total Bilirubin 0.4, Aspartate Amino Transf (AST/SGOT) 37H, Alanine Aminotransferase (ALT/SGPT) 31, Alkaline Phosphatase 69, Total Protein 6.1L, Albumin 3.3 Home Meds Active Reported Tylenol Extra Strength (Acetaminophen) 500 Mg Tablet 500-1,000 Mg PO Q8H PRN Multivitamin 1 Each Tablet 1 Each PO DAILY Preservision Areds 2 Softgel (Vit C/E/Zn/Coppr/Lutein/Zeaxan) 1 Each Capsule 1 Each PO BID Aspirin EC (Aspirin) 81 Mg Tablet.dr 81 Mg PO DAILY Oxybutynin Chloride 5 Mg Tablet 5 Mg PO BID Norvasc (Amlodipine Besylate) 10 Mg Tablet 10 Mg PO DAILY Plavix (Clopidogrel Bisulfate) 75 Mg Tablet 75 Mg PO HS Phenytoin Sodium Extended 100 Mg Capsule 100 Mg PO BID Losartan Potassium 50 Mg Tablet 50 Mg PO DAILY Atorvastatin Calcium 40 Mg Tablet 40 Mg PO DAILY Assessment/Pt Instructions Resume aspirin, plavix treatment follow up with PCP. Discharge Planning: >30 minutes discharge planning Discharge Physical Examination Vital Signs Vital Signs Date Time Temp Pulse Resp B/P (MAP) Pulse Ox O2 Delivery O2 Flow Rate FiO2 04/28/21 13:00 51 04/28/21 12:00 25 142/72 (95) 97 Room Air 04/28/21 08:00 36.4 04/27/21 21:00 2.00 General Appearance: No Apparent Distress HEENT: PERRL/EOMI Respiratory: Chest Non Tender, Lungs Clear, Normal Breath Sounds Cardiovascular: Regular Rate, Rhythm, No Edema Gastrointestinal: Non Tender, Soft Extremity: Non Tender, No Calf Tenderness Skin: Warm/Dry Neurologic/Psychiatric: Alert, Oriented x3 Allergies: Coded Allergies: Sulfa (Sulfonamide Antibiotics) (Unverified Allergy, Mild, HIVES, 07/03/16) Discharge Summary Date of Admission Apr 27, 2021 at 01:40 Date of Discharge Comfort Measures/ Time spent on discussion (min): 0 Discharge Diagnosis (1) NSTEMI (non-ST elevated myocardial infarction) (2) CAD (coronary artery disease) Assessment & Plan: 04/27/21---CONCLUSIONS: 1. Coronary artery disease primarily consisting of approximately 80% stenosis in the sub-branch of the first diagonal branch, to which successful balloon angioplasty was carried out with reduction of stenosis from 80% to less than 20% residual. The rest of the coronary vessels have mild plaque. 2. Well-preserved global left ventricular systolic function with ejection fraction approximately 60%. 3. Mildly elevated left ventricular end-diastolic pressure. --dual anticoag therapy- plavix, aspirin (3) History of seizures Status: Acute Assessment & Plan: phenytoin level a little low -continue phenytoin. (4) Generalized weakness Status: Acute Assessment & Plan: improved (5) Elevated troponin Status: Acute OLY LUX MD Apr 28, 2021 16:44
--- NOTE | 2021-04-30 15:52 | Physician Query Clarification ---
PQ-CHF Specificity Admission Date: Apr 27, 2021 at 01:40 Discharge Date: Apr 28, 2021 at 14:00 The medical record reflects the following clinical scenario: History/Risk Factors: NSTEMI, CAD Clinical Findings: NSTEMI, grade 1 diastolic dysfunction on echo Treatment: Toprol, Aspirin Question: Can you further specify the acuity &/or type of CHF per the clinical indicators above? Only mild CHF is listed on summary. Please document a response in the Progress Notes or Discharge Summary. 1. Acuity: Acute, Chronic or Acute on Chronic 2. Type: Systolic, Diastolic or Systolic & Diastolic 3. Unspecified: CHF cannot be further specified regarding type or acuity 4. Other, with explanation of clinical findings 5. Clinically undetermined, no explanation for clinical findings PHYSICIAN RESPONSE Acuity: Chronic Type: Diastolic Other, clinical findings chronic diastolic CHF Please remember a lack of response to the above will prompt a phone page by [facility]/Coding staff. In responding to this query, please exercise your independent professional judgment. The purpose of this communication is to more accurately reflect the complexity of your patients condition. The fact that a question is asked does not imply that any particular answer is desired or expected. Thank you for your timely response to this clarification. Requestors name: Soni THIS PHYSICIAN QUERY FORM IS A PERMANENT PART OF THE MEDICAL RECORD SONI GUTIERREZ Apr 30, 2021 15:52 OLY LUX MD May 06, 2021 06:46
== END 2021-04-28 14:00 | disposition home or self-care (01) | DRG 251 ==
LOC: EDUNIT# 23:36 → ER 23:39 → CSD 04-27 01:40 → ICU 04-27 17:02
PROVIDERS: ADMIT Family Medicine; ATTEND Family Medicine
PROC: 02703ZZ Dilation of Coronary Artery, One Artery, Percutaneous Approach (ICD-10-PCS; principal; 2021-04-27)
PROC: 4A023N7 Measurement of Cardiac Sampling and Pressure, Left Heart, Percutaneous Approach (ICD-10-PCS; 2021-04-27)
PROC: B2111ZZ Fluoroscopy of Multiple Coronary Arteries using Low Osmolar Contrast (ICD-10-PCS; 2021-04-27)
PROC: B2151ZZ Fluoroscopy of Left Heart using Low Osmolar Contrast (ICD-10-PCS; 2021-04-27)
DX: I21.4 Non-ST elevation (NSTEMI) myocardial infarction (principal); I50.32 Chronic diastolic (congestive) heart failure; I25.10 Atherosclerotic heart disease of native coronary artery without angina pectoris; I11.9 Hypertensive heart disease without heart failure; G40.909 Epilepsy, unspecified, not intractable, without status epilepticus; E78.5 Hyperlipidemia, unspecified; R53.1 Weakness; N39.41 Urge incontinence; K21.9 Gastro-esophageal reflux disease without esophagitis; R00.1 Bradycardia, unspecified; Z96.653 Presence of artificial knee joint, bilateral; Z79.82 Long term (current) use of aspirin; Z79.899 Other long term (current) drug therapy; Z85.51 Personal history of malignant neoplasm of bladder; Z20.822 Contact with and (suspected) exposure to COVID-19; Z91.81 History of falling
CPT/HCPCS: 36415; 51701; 70450; 71045; 80053; 80061; 80185; 80320; 80329; 81000; 82550; 82553; 83690; 83735; 83874; 83880; 84443; 84484; 85025; 85610; 85652; 85730; 87636; 93005; 93041; 93306; 93458

== ENCOUNTER → 2023-02-05 | Outpatient (RCR) | payer MEDICARE, OTHER ==
[~2023-02-05] MED LIST changes: +ACET-2267 PO; +ASPI-1238 PO; +CLOP-31 PO; -CLOP75TA69 PO; +MULT-1136 PO; +OXYB5TAB13 PO; +VIT1CAPS44 PO
== END ==
PROVIDERS: ATTEND Family Medicine
DX: R26.89 Other abnormalities of gait and mobility (principal); I10 Essential (primary) hypertension; W18.2XXD Fall in (into) shower or empty bathtub, subsequent encounter

== ENCOUNTER 2023-02-08 16:34 | Inpatient (IN) | payer MEDICARE, OTHER ==
[~2023-02-08] VITALS: Ht 170 cm; Wt 98.9 kg
--- NOTE | 2023-02-08 17:15 | ED General ---
General Chief Complaint: General Problems/Pain Stated Complaint: WEAKNESS Nursing Triage Note: INCREASING WEAKNESS AND INCONTINENT Source of Information: Patient Exam Limitations: No Limitations History of Present Illness Date Seen by Provider: Feb 08, 2023 Time Seen by Provider: 17:12 Initial Comments This 87-year-old gentleman presents to the emergency room accompanied by his and his stepdaughter with complaints of progressive weakness and instability. He has also experienced urinary and fecal incontinence. Friday of this week he had a "soft fall" without injury at home. His primary care provider, Dr. PABLO, ordered physical therapy which he had been doing fairly well. However, he is now weak and not able to ambulate independently. He ambulated a little bit with a walker today but that was difficult. He has had chills and has not been eating well. He has been febrile during assessment in the ER. Temp oral temperature was 104.0 Fahrenheit and oral temperature was 100.4 Fahrenheit. Patient has a history of dementia and is a poor historian. His provides much of the history. He denies any pain at this time. He does feel febrile to the touch. Oxygen saturation was 90% on room air. He does not normally need to use supplemental oxygen. Oxygen saturation is in the upper 90s on 2 L by nasal cannula. He is not in any respiratory distress. Dr. Pablo is his primary care provider. His urologist is Dr. Richmond. His shop steward is Dr. Lorenz. Allergies and Home Medications Allergies Coded Allergies: Sulfa (Sulfonamide Antibiotics) (Unverified Allergy, Mild, HIVES, 07/03/16) Patient Home Medication List Home Medication List Reviewed: Yes Acetaminophen (Tylenol Extra Strength) 500 Mg Tablet, 500-1,000 MG PO Q8H PRN for PAIN-MILD (1-4), (Reported) Entered as Reported by: ASHUTOSH CASTELLANO on 04/27/21 1056 Amlodipine Besylate (Norvasc) 10 Mg Tablet, 10 MG PO DAILY, (Reported) Entered as Reported by: JAMILA CHILEL on 07/10/16 1507 Aspirin (Aspirin EC) 81 Mg Tablet., 81 MG PO DAILY, (Reported) Entered as Reported by: ASHUTOSH CASTELLANO on 04/27/21 1056 Atorvastatin Calcium (Atorvastatin Calcium) 40 Mg Tablet, 40 MG PO DAILY, (Reported) Entered as Reported by: RAMA BEE on 07/05/15 0945 Clopidogrel Bisulfate (Plavix) 75 Mg Tablet, 75 MG PO HS, (Reported) Entered as Reported by: GERMAN KING on 07/03/16 0949 Losartan Potassium (Losartan Potassium) 50 Mg Tablet, 50 MG PO DAILY, (Reported) Entered as Reported by: RAMA BEE on 07/05/15 0945 Multivitamin (Multivitamin) 1 Each Tablet, 1 EACH PO DAILY, (Reported) Entered as Reported by: ASHUTOSH CASTELLANO on 04/27/21 1056 Oxybutynin Chloride (Oxybutynin Chloride) 5 Mg Tablet, 5 MG PO BID, (Reported) Entered as Reported by: ASHUTOSH CASTELLANO on 04/27/21 1056 Phenytoin Sodium Extended (Phenytoin Sodium Extended) 100 Mg Capsule, 100 MG PO BID, (Reported) Entered as Reported by: RAMA BEE on 07/05/15 0945 Vit C/E/Zn/Coppr/Lutein/Zeaxan (Preservision Areds 2 Softgel) 1 Each Capsule, 1 EACH PO BID, (Reported) Entered as Reported by: ASHUTOSH CASTELLANO on 04/27/21 1056 Review of Systems Review of Systems Constitutional: see HPI EENTM: no symptoms reported Respiratory: see HPI Cardiovascular: no symptoms reported Gastrointestinal: see HPI Genitourinary: see HPI Musculoskeletal: no symptoms reported Skin: no symptoms reported Psychiatric/Neurological: See HPI Hematologic/Lymphatic: No Symptoms Reported Immunological/Allergic: no symptoms reported Past Hdesxbb-Xvsjlh-Rcwnow Hx Patient Social History Tobacco Use?: No Substance use?: No Alcohol Use?: No Pt feels they are or have been: No Immunizations Up To Date Tetanus Booster (TDap): Unknown First/Initial COVID19 Vaccinat: 09/28/20 Second COVID19 Vaccination Malcolm: 10/28/20 Seasonal Allergies Seasonal Allergies: No Past Medical History Surgery/Hospitalization HX: 1956--APPENDECTOMY/RUPTURED APPENDIX 1990--TURP BY DR. AZAR 2000--LEFT KNEE ARTHROSCOPY BY DR. 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 MERLOS 2005--RIGHT KNEE ARTHROSCOPY BY DR. CERDA 2006--CHOLECYSTECTOMY BY DR. LU 2006--RIGHT TOTAL KNEE REPLACEMENT 2009--HOSPITALIZED X 1 WEEK FOR VIRAL INFECTION 2010--EEG DONE SHOWING EPILEPSY 2013--CARDIAC CATH-DX WITH CAD BUT NO INTERVENTION-BY DR. LORENZ 2013--KIDNEY STONE WITH PSEUDO BOWEL OBSTRUCTION-HOSPITALIZED X 1 WEEK/NO SURGERY 2013--COLONOSCOPY--NORMAL--BY DR. MAYORGA 2014--CYSTOSCOPY-SMALL AREA OF CANCER IN BLADDER-BY DR. 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 AZAR 2015--LEFT TOTAL KNEE REPLACEMENT BY DR. CERDA Surgeries: Yes (CARDIAC CATH-NO INTERVENTION; BILATERAL TOTAL KNEE REPLACEMENTS) Appendectomy, Bladder Surgery, Cardiac (Angioplasty), Eye Surgery, Gallbladder, Joint Replacement, Orthopedic, Prostatectomy (TURP), Transurethral Resection Respiratory: No Currently Using CPAP: No Currently Using BIPAP: No Cardiac: Yes Coronary Artery Disease, High Cholesterol, Hypertension Neurological: Yes (POOR MEMORY) Dementia (Reported as "memory difficulties"), Seizure Disorder, Stroke (With resolved speech deficit) Reproductive Disorders: No Sexually Transmitted Disease: No HIV/AIDS: No Genitourinary: Yes Benign Prostatic Hyperpl, Prostate Problems, Kidney Stones Gastrointestinal: Yes (S/P JAYLEEN) Gall Bladder Disease Musculoskeletal: Yes Arthritis Endocrine: No HEENT: Yes Cataract, Macular Degeneration Loss of Vision: Denies Hearing Impairment: Hard of Hearing Cancer: Yes Bladder Did You Recieve Any Treatments: Yes What Type of Treatment Did You: Surgical Intervention Psychosocial: No Integumentary: No Blood Disorders: No Adverse Reaction/Blood Tranf: No Family Medical History Abdominal aortic aneurysm 09 BROTHER History of - respiratory disease 09 BROTHER Myocardial infarction 09 BROTHER Stroke 03 MOTHER 09 BROTHER 09 SISTER Heart Disease, Hypertension, Stroke, Other Conditions/Hx Physical Exam Vital Signs Vital Signs - First Documented 02/08/23 02/08/23 02/08/23 16:37 16:40 16:41 Temp 40.3 Pulse 89 Resp 20 B/P (MAP) 162/74 (103) Pulse Ox 92 O2 Delivery Room Air O2 Flow Rate 2.00 Capillary Refill : Height, Weight, BMI Height: 5'8.00" Weight: 205lbs. 3.0oz. [id number]; 28.00 BMI Method:Stated General Appearance: No Apparent Distress, WD/WN HEENT: PERRL/EOMI, Normal ENT Inspection, Pharynx Normal Neck: Normal Inspection; No JVD Respiratory: No Accessory Muscle Use, No Respiratory Distress, Crackles (Few crackles in the bilateral bases); No Rhonci, No Wheezing Cardiovascular: Regular Rate, Rhythm, No Edema, No Murmur Gastrointestinal: Non Tender, Soft; No Distended Extremity: Normal Inspection, Non Tender, No Pedal Edema Neurologic/Psychiatric: Alert, Normal Mood/Affect, Other (Memory impairment at baseline) Skin: Normal Color, Warm/Dry Focused Exam Lactate Level 02/08/23 16:45: Lactic Acid Level 1.58 Lactic Acid Level Laboratory Tests Test 02/08/23 16:45 Lactic Acid Level 1.58 MMOL/L (0.50-2.00) Progress/Results/Core Measures Suspected Sepsis SIRS Temperature: Pulse: 89 Respiratory Rate: 20 Laboratory Tests 02/08/23 16:35: White Blood Count 19.7H Blood Pressure 162 /74 Mean: 103 02/08/23 16:45: Lactic Acid Level 1.58 Laboratory Tests 02/08/23 16:35: Creatinine 1.11, INR Comment 1.3, Platelet Count 244, Total Bilirubin 0.7 Results/Orders Lab Results Laboratory Tests Test 02/08/23 16:35 02/08/23 16:45 02/08/23 18:52 Range/Units White Blood Count 19.7 H 4.3-11.0 10^3/uL Red Blood Count 4.14 L 4.30-5.52 10^6/uL Hemoglobin 13.3 13.3-17.7 g/dL Hematocrit 38 L 40-54 % Mean Corpuscular Volume 91 80-99 fL Mean Corpuscular Hemoglobin 32 25-34 pg Mean Corpuscular Hemoglobin Concent 35 32-36 g/dL Red Cell Distribution Width 13.3 10.0-14.5 % Platelet Count 244 130-400 10^3/uL Mean Platelet Volume 9.6 9.0-12.2 fL Immature Granulocyte % (Auto) 1 % Neutrophils (%) (Auto) 76 H 42-75 % Lymphocytes (%) (Auto) 10 L 12-44 % Monocytes (%) (Auto) 13 H 0-12 % Eosinophils (%) (Auto) 1 0-10 % Basophils (%) (Auto) 0 0-10 % Neutrophils # (Auto) 15.0 H 1.8-7.8 10^3/uL Lymphocytes # (Auto) 1.9 1.0-4.0 10^3/uL Monocytes # (Auto) 2.5 H 0.0-1.0 10^3/uL Eosinophils # (Auto) 0.1 0.0-0.3 10^3/uL Basophils # (Auto) 0.1 0.0-0.1 10^3/uL Immature Granulocyte # (Auto) 0.1 0.0-0.1 10^3/uL Neutrophils % (Manual) 78 % Lymphocytes % (Manual) 10 % Monocytes % (Manual) 12 % Blood Morphology Comment NORMAL Prothrombin Time 16.0 H 12.2-14.7 SEC INR Comment 1.3 0.8-1.4 Activated Partial Thromboplast Time 37 H 24-35 SEC Sodium Level 135 135-145 MMOL/L Potassium Level 3.6 3.6-5.0 MMOL/L Chloride Level 100 98-107 MMOL/L Carbon Dioxide Level 21 21-32 MMOL/L Anion Gap 14 5-14 MMOL/L Blood Urea Nitrogen 19 H 7-18 MG/DL Creatinine 1.11 0.60-1.30 MG/DL Estimat Glomerular Filtration Rate 65 BUN/Creatinine Ratio 17 Glucose Level 174 H 70-105 MG/DL Calcium Level 9.3 8.5-10.1 MG/DL Corrected Calcium 9.5 8.5-10.1 MG/DL Total Bilirubin 0.7 0.1-1.0 MG/DL Aspartate Amino Transf (AST/SGOT) 48 H 5-34 U/L Alanine Aminotransferase (ALT/SGPT) 28 0-55 U/L Alkaline Phosphatase 93 40-136 U/L Total Protein 7.5 6.4-8.2 GM/DL Albumin 3.8 3.2-4.5 GM/DL Lactic Acid Level 1.58 0.50-2.00 MMOL/L Influenza Type A (RT-PCR) Not Detected Not Detecte Influenza Type B (RT-PCR) Not Detected Not Detecte SARS-CoV-2 RNA (RT-PCR) Not Detected Not Detecte Urine Color YELLOW Urine Clarity CLEAR Urine pH 5.5 5-9 Urine Specific Wilsey 1.025 H 1.016-1.022 Urine Protein 2+ H NEGATIVE Urine Glucose (UA) NEGATIVE NEGATIVE Urine Ketones 2+ H NEGATIVE Urine Nitrite NEGATIVE NEGATIVE Urine Bilirubin 1+ H NEGATIVE Urine Urobilinogen 0.2 < = 1.0 MG/DL Urine Leukocyte Esterase NEGATIVE NEGATIVE Urine RBC (Auto) 1+ H NEGATIVE Urine RBC RARE /HPF Urine WBC NONE /HPF Urine Squamous Epithelial Cells RARE /HPF Urine Crystals NONE /LPF Urine Bacteria FEW H /HPF Urine Casts NONE /LPF Urine Mucus NEGATIVE /LPF Urine Culture Indicated NO My Orders Orders - HUMAIRA FRANCO MD Covid 19 Inhouse Test (02/08/23 17:12) Influenza A And B By Pcr (02/08/23 17:12) Cbc With Automated Diff (02/08/23 17:12) Comprehensive Metabolic Panel (02/08/23 17:12) Blood Culture (02/08/23 17:12) Sputum Culture (02/08/23 17:12) Urinalysis (02/08/23 17:12) Urine Culture (02/08/23 17:12) Protime With Inr (02/08/23 17:12) Partial Thromboplastin Time (02/08/23 17:12) Chest 1 View, Ap/Pa Only (02/08/23 17:12) Ed Iv/Invasive Line Start (02/08/23 17:12) Vital Signs Adult Sepsis Patie Q15M (02/08/23 17:12) O2 (02/08/23 17:12) Remove Rings In Anticipation O (02/08/23 17:12) Lactic Acid Analyzer (02/08/23 17:12) Manual Differential (02/08/23 16:35) Bladder Scan (02/08/23 17:43) Lactated Ringers (Lr 1000 Ml Iv Solution (02/08/23 19:00) Ceftriaxone Pre-Mix (Rocephin Pre-Mix) (02/08/23 18:59) Code/Resuscitation (02/08/23 19:13) Ed Admission (Communication) (02/08/23 19:14) Vital Signs/I&O 02/08/23 02/08/23 02/08/23 02/08/23 16:37 16:40 16:41 18:05 Temp 40.3 38.0 38.4 Pulse 89 Resp 20 B/P (MAP) 162/74 (103) Pulse Ox 92 O2 Delivery Room Air Nasal Cannula Nasal Cannula O2 Flow Rate 2.00 2.00 02/09/23 00:00 Intake Total 50 ml Balance 50 ml Capillary Refill : Blood Pressure Mean: 103 Progress Note : Time: 19:05 Progress Note Patient was interviewed and examined along with his and stepdaughter. Septic work-up was pursued. WBC was markedly elevated at 19,000. Chest x-ray was unremarkable. Influenza and COVID-19 swabs were negative. Glucose was 174. Chemistry was otherwise unremarkable. Labs were reviewed and interpreted by me in their entirety. Patient was unable to urinate. Bladder scan revealed about 60 mL urine volume. Straight cath yielded 200 mL of urine which was sent for analysis. Results are pending at this time. UTIs presumed source of infection given his urinary incontinence and history of UTI. Case has been discussed with Dr. Godoy, admitting hospitalist physician. Rocephin is being administered for empiric antibiotic therapy and a liter of LR is being infused for hydration. Patient remained on O2 2 Lpm NC. Diagnostic Imaging Diagonstic Imaging: Xray Plain Films/CT/US/NM/MRI: chest Comments NAME: SAFIA MCGHEE [facility] REC#: [id number] PT STATUS: REG ER : 1935 PHYSICIAN: HUMAIRA FRANCO MD ADMIT DATE: 02/08/23/ER Signed Date of Exam:02/08/23 CHEST 1 VIEW, AP/PA ONLY EXAMINATION: Chest radiograph, portable AP view. DATE: 02/08/2023 5:31 PM INDICATION: 87-year-old male, fever. Chest pain. COMPARISON: April 27, 2021. FINDINGS: Heart size and mediastinal contours are unchanged. There is no identified pneumothorax. There is no large pleural effusion. There is no identified focal airspace consolidation. There are bilateral acromioclavicular degenerative changes. IMPRESSION: No identified acute cardiopulmonary abnormality. Dictated by: Dictated on workstation # [id number] Dict: 02/08/231731 Trans: 02/08/231743 [facility] [id number] Interpreted by: JAD MELCHOR MD Electronically signed by: JAD MELCHOR MD 02/08/231743 Departure Communication (Admissions) Time/Spoke to Admitting [facility]: 18:50 Dr. Godoy Impression Primary Impression: Sepsis Qualified Codes: A41.9 - Sepsis, unspecified organism Additional Impressions: Generalized weakness Hypoxia Disposition: ADMITTED INPATIENT Condition: Stable Admissions Decision to Admit Reason: Admit from ER (General) Decision to Admit/Date: Feb 08, 2023 Time/Decision to Admit Time: 18:50 Departure-Patient Inst. Referrals: ADEBAYO PABLO MD (PCP) Primary Care Physician Copy Copies To 1: ADEBAYO PABLO MD, JOSHUA T MD Feb 08, 2023 17:15
[2023-02-08 17:21] LABS: BASOPHILS # (AUTO) 0.1 10^3/uL (0.0-0.1); BASOPHILS % (AUTO) 0 % (0-10); EOSINOPHILS # (AUTO) 0.1 10^3/uL (0.0-0.3); EOSINOPHILS % (AUTO) 1 % (0-10); HEMATOCRIT 38 % (40-54); HEMOGLOBIN 13.3 g/dL (13.3-17.7); LYMPHOCYTES # (AUTO) 1.9 10^3/uL (1.0-4.0); LYMPHOCYTES % (AUTO) 10 % (12-44); MEAN CORPUSCULAR HEMOGLOBIN 32 pg (25-34); MEAN CORPUSCULAR HGB CONC 35 g/dL (32-36); MEAN CORPUSCULAR VOLUME 91 fL (80-99); MEAN PLATELET VOLUME 9.6 fL (9.0-12.2); MONOCYTES # (AUTO) 2.5 10^3/uL (0.0-1.0); MONOCYTES % (AUTO) 13 % (0-12); NEUTROPHILS % (AUTO) 76 % (42-75); PLATELET COUNT 244 10^3/uL (130-400); WHITE BLOOD COUNT 19.7 10^3/uL (4.3-11.0)
[2023-02-08 17:26] LABS: INR 1.3 (0.8-1.4)
[2023-02-08 17:27] LABS: ALBUMIN 3.8 GM/DL (3.2-4.5); POTASSIUM 3.6 MMOL/L (3.6-5.0)
[2023-02-08 17:28] LABS: CALCIUM 9.3 MG/DL (8.5-10.1)
[2023-02-08 17:30] LABS: TOTAL PROTEIN 7.5 GM/DL (6.4-8.2)
[2023-02-08 17:31] LABS: BILIRUBIN,TOTAL 0.7 MG/DL (0.1-1.0)
[2023-02-08 17:33] LABS: CREATININE SERUM 1.11 MG/DL (0.60-1.30)
--- NOTE | 2023-02-08 17:34 | Diagnostic Imaging Report ---
EXAMINATION: Chest radiograph, portable AP view. DATE: 02/08/2023 5:31 PM INDICATION: 87-year-old male, fever. Chest pain. COMPARISON: April 27, 2021. FINDINGS: Heart size and mediastinal contours are unchanged. There is no identified pneumothorax. There is no large pleural effusion. There is no identified focal airspace consolidation. There are bilateral acromioclavicular degenerative changes. IMPRESSION: No identified acute cardiopulmonary abnormality. Dictated by: Dictated on workstation # [id number]
[2023-02-08 17:49] LABS: NEUTROPHILS % (MANUAL) 78 %
[2023-02-08 17:50] LABS: LYMPHOCYTES % (MANUAL) 10 %; MONOCYTES % (MANUAL) 12 %; RBC MORPH NORMAL
[2023-02-08 18:57] LABS: CLARITY,URINE CLEAR; COLOR,URINE YELLOW; GLUCOSE, URINE (UA) NEGATIVE (NEGATIVE); KETONES,URINE 2+ (NEGATIVE); LEUKOCYTE ESTERASE ,URINE NEGATIVE (NEGATIVE); NITRITE,URINE NEGATIVE (NEGATIVE); PH,URINE 5.5 (5-9); PROTEIN,URINE 2+ (NEGATIVE)
[2023-02-08] MEDS ORDERED: cefTRIAXone PRE-MIX 50 ML IV STA (18:59)
[2023-02-08] MEDS ORDERED: LACTATED RINGERS 1,000 ML IV ONE (19:00)
[2023-02-08] MEDS ORDERED: ACETAMINOPHEN 500 MG TAB (TYLENOL) PO ONE (19:00)
[2023-02-08 19:14] LABS: BACTERIA,URINE FEW /HPF; RBC,URINE RARE /HPF; SQUAMOUS EPITHELIAL CELL,UR RARE /HPF
[2023-02-08 19:15] LABS: BILIRUBIN,URINE 1+ (NEGATIVE)
[2023-02-08 20:28] VITALS: BP 104/53
[2023-02-08] MEDS ORDERED: MILK OF MAGNESIA 400 MG/5 ML 30 ML UDC PO PRN (20:45)
[2023-02-08] MEDS ORDERED: diphenhydrAMINE 50 MG/ML INJ (BENADRYL) IVP PRN (20:45)
[2023-02-08] MEDS ORDERED: ONDANSETRON 4 MG/2 ML (SDV) Z0FRAN IV PRN (20:45)
[2023-02-08] MEDS ORDERED: MELATONIN 3 MG TABLET PO PRN (20:45)
[2023-02-08] MEDS ORDERED: ANTACID SUSP 30 ML UDC (MYLANTA) PO PRN (20:45)
[2023-02-08] MEDS ORDERED: CALCIUM CARBONATE 500 MG (TUMS) TAB.CHEW PO PRN (20:45)
[2023-02-08] MEDS ORDERED: BISACODYL 10 MG SUPP (DULCOLAX) PR PRN (20:45)
[2023-02-08] MEDS ORDERED: HYDROmorphone 2 MG/ML VIAL (DILAUDID) IV PRN (20:45)
[2023-02-08] MEDS ORDERED: diphenhydrAMINE 25 MG TAB (BENADRYL) PO PRN (20:45)
[2023-02-08] MEDS ORDERED: ACETAMINOPHEN 325 MG TABLET PO PRN (20:45)
[2023-02-08] MEDS ORDERED: LACTULOSE SYRUP 10GM/15ML (ENULOSE) 30ML UDC PO PRN (20:45)
[2023-02-08] MEDS ORDERED: polyethylene glycoL POWDER 17 GM (MIRALAX) PACK PO PRN (20:45)
[2023-02-08] MEDS ORDERED: ONDANSETRON 4 MG (ZOFRAN) ORAL DISSOLVE TAB PO PRN (20:45)
[2023-02-08] MEDS: ENOXAPARIN 40 MG/0.4 ML (LOVENOX) SYR SC SCH (21:06)
[2023-02-08] MEDS: DOCUSATE SODIUM 100 MG (COLACE) CAP PO SCH (21:06)
[2023-02-08] MEDS: SENNOSIDES 8.6 MG (SENOKOT) TAB PO SCH (21:13)
[2023-02-08] MEDS: PHENYTOIN 100 MG (DILANTIN) CAP PO SCH (21:19)
[2023-02-08] MEDS: CLOPIDOGREL 75 MG (PLAVIX) TABLET PO SCH ×2 (21:19→22:22)
[2023-02-08] MEDS: AZITHROMYCIN INJECTION 500 MG in NS (IVPB) 250 ML IV SCH (21:19)
[2023-02-08] MEDS: NS IV 1000 ML 1,000 ML IV SCH (21:21)
[2023-02-08 23:40] VITALS: BP 137/70
[2023-02-09 03:29] VITALS: BP 158/71
[2023-02-09 05:45] LABS: BASOPHILS # (AUTO) 0.1 10^3/uL (0.0-0.1); BASOPHILS % (AUTO) 1 % (0-10); EOSINOPHILS % (AUTO) 0 % (0-10); HEMATOCRIT 33 % (40-54); HEMOGLOBIN 11.3 g/dL (13.3-17.7); LYMPHOCYTES # (AUTO) 1.2 10^3/uL (1.0-4.0); LYMPHOCYTES % (AUTO) 8 % (12-44); MEAN CORPUSCULAR HEMOGLOBIN 31 pg (25-34); MEAN CORPUSCULAR HGB CONC 34 g/dL (32-36); MEAN CORPUSCULAR VOLUME 91 fL (80-99); MONOCYTES # (AUTO) 1.9 10^3/uL (0.0-1.0); MONOCYTES % (AUTO) 12 % (0-12); NEUTROPHILS # (AUTO) 12.1 10^3/uL (1.8-7.8); NEUTROPHILS % (AUTO) 79 % (42-75); PLATELET COUNT 188 10^3/uL (130-400); WHITE BLOOD COUNT 15.3 10^3/uL (4.3-11.0)
[2023-02-09 06:03] LABS: ALBUMIN 3.2 GM/DL (3.2-4.5)
[2023-02-09 06:04] LABS: POTASSIUM 3.3 MMOL/L (3.6-5.0)
[2023-02-09 06:05] LABS: CALCIUM 8.6 MG/DL (8.5-10.1)
[2023-02-09 06:06] LABS: TOTAL PROTEIN 6.3 GM/DL (6.4-8.2)
[2023-02-09 06:08] LABS: BILIRUBIN,TOTAL 0.4 MG/DL (0.1-1.0)
[2023-02-09 06:10] LABS: CREATININE SERUM 0.96 MG/DL (0.60-1.30)
--- NOTE | 2023-02-09 06:11 | History & Physical ---
History of Present Illness HPI/Chief Complaint Chief complaint: Fever with weakness HPI: This is an 87-year-old white male clinic patient of Dr. Pablo who has a past medical history of CAD, stroke, dementia and hypertension who presented to the ER with generalized weakness and fever. Patient had just started outpatient therapy. He was so weak that his who is a retired nurse called the ambulance and brought him in. Rocephin and azithromycin were both initiated empirically in case dehydration prevented pneumonia from revealing on chest x- ray. UA did not look significantly abnormal but he does have a history of UTIs. Overall he is doing much better so we will Hep-Lock IV fluids start home medication and ambulate. He was found to have hypoxia so 2 L of oxygen was placed. Source: patient, family, RN/MD Date Seen 02/09/23 Time Seen by a Provider: 11:00 Attending Physician Shaneka Pablo MD PCP Admitting Physician: Adele Godoy DO Attending Physician: Adele Godoy DO Referring Physician Date of Admission Feb 08, 2023 at 20:09 Home Medications & Allergies Home Medications Reviewed patient Home Medication Reconciliation performed by pharmacy medication reconciliations planetarium sky show technician and/or nursing. Patients Allergies have been reviewed. Allergies Allergies Coded Allergies Sulfa (Sulfonamide Antibiotics) (Unverified Allergy, Mild, HIVES, 07/03/16) Past Vqwefcz-Byeald-Ceuxst Hx Past Med/Social Hx: Reviewed Nursing Past Med/Soc Hx, Reviewed and Corrections made Patient Social History Marrital Status: Employed/Student: retired Alcohol Use: Denies Use Smoking Status: Former Smoker Recent Hopitalizations: No Immunizations Up To Date Tetanus Booster (TDap): Unknown Date of Pneumonia Vaccine: May 22, 2016 Date of Influenza Vaccine: May 22, 2016 Seasonal Allergies Seasonal Allergies: No Past Medical History Surgeries: Appendectomy, Bladder Surgery, Cardiac (Angioplasty), Eye Surgery, G allbladder, Joint Replacement, Orthopedic, Prostatectomy (TURP), Transurethral Resection Currently Using CPAP: No Currently Using BIPAP: No Cardiac: Coronary Artery Disease, High Cholesterol, Hypertension Neurological: Dementia (Reported as "memory difficulties"), Seizure Disorder, Stroke (With resolved speech deficit) Reproductive: No Sexually Transmitted Disease: No HIV/AIDS: No Genitourinary: Benign Prostatic Hyperpl, Prostate Problems, Kidney Stones Gastrointestinal: Gall Bladder Disease Musculoskeletal: Arthritis HEENT: Cataract, Macular Degeneration Loss of Vision: Denies Hearing Impairment: Hard of Hearing Cancer: Bladder Did You Recieve Any Treatments: Yes What Type of Treatment Did You: Surgical Intervention History of Blood Disorders: No Adverse Reaction to Blood [place]: No Family History Abdominal aortic aneurysm 09 BROTHER History of - respiratory disease 09 BROTHER Myocardial infarction 09 BROTHER Stroke 03 MOTHER 09 BROTHER 09 SISTER Heart Disease, Hypertension, Stroke, Other Conditions/Hx Review of Systems Constitutional: see HPI, malaise, weakness EENTM: no symptoms reported Respiratory: no symptoms reported Cardiovascular: no symptoms reported Gastrointestinal: no symptoms reported Genitourinary: no symptoms reported Musculoskeletal: no symptoms reported Skin: no symptoms reported Psychiatric/Neurological: Depressed All Other Systems Reviewed Negative Unless Noted: Yes Physical Exam Physical Exam Vital Signs Vital Signs - First Documented 02/08/23 02/08/23 02/08/23 16:37 16:40 16:41 Temp 40.3 Pulse 89 Resp 20 B/P (MAP) 162/74 (103) Pulse Ox 92 O2 Delivery Room Air O2 Flow Rate 2.00 Capillary Refill : Height, Weight, BMI Height: 5'8.00" Weight: 205lbs. 3.0oz. 93.859271cl; 34.22 BMI Method:Stated General Appearance: No Apparent Distress, WD/WN, Chronically ill HEENT: PERRL/EOMI, Normal ENT Inspection, Pharynx Normal Neck: Normal Inspection; No JVD Respiratory: No Accessory Muscle Use, No Respiratory Distress, Crackles (Few crackles in the bilateral bases); No Rhonci, No Wheezing Cardiovascular: Regular Rate, Rhythm, No Edema, No Murmur Gastrointestinal: Non Tender, Soft; No Distended Extremity: Normal Inspection, Non Tender, No Pedal Edema Neurologic/Psychiatric: Alert, Normal Mood/Affect, Disoriented, Other (Memory impairment at baseline) Skin: Normal Color, Warm/Dry Results Results/Procedures Labs Laboratory Tests 02/08/23 16:35 02/09/23 05:30 Patient resulted labs reviewed. Assessment/Plan Admission Diagnosis Assessment: Fever from uncertain source Severe weakness Hypoxia requiring oxygen supplementation Dementia Hypertension BPH Seizure disorder History of CVA Plan: Empiric antibiotics Oxygen supplementation Home meds Admission Status: Inpatient Order (span 2 midnights) Reason for Inpatient Admission: sepsis with hypoxia and severe weakness ADELE GODOY DO Feb 09, 2023 06:10
[2023-02-09] MEDS: KCL 20 MEQ TAB (K-DUR) PO SCH (06:29)
[2023-02-09 07:27] VITALS: BP 134/60
--- NOTE | 2023-02-09 08:16 | Diagnostic Imaging Report ---
INDICATION: Follow-up pneumonia COMPARISON: 02/08/2023 FINDINGS: Single frontal view of the chest demonstrates stable cardiac silhouette and pulmonary vasculature. The lungs are well aerated and clear. No large pleural effusion or pneumothorax is seen. The visualized osseous structures show no acute abnormalities. IMPRESSION: 1. No acute cardiopulmonary process. Dictated by: Dictated on workstation # [id number]
[2023-02-09] MEDS: SENNOSIDES 8.6 MG (SENOKOT) TAB PO SCH ×2 (08:42→19:15)
[2023-02-09] MEDS: DOCUSATE SODIUM 100 MG (COLACE) CAP PO SCH ×2 (08:42→19:15)
[2023-02-09] MEDS: PHENYTOIN 100 MG (DILANTIN) CAP PO SCH ×2 (08:42→19:15)
[2023-02-09] MEDS: NS IV 1000 ML 1,000 ML IV SCH (10:44)
[2023-02-09 11:42] VITALS: BP 179/81
[2023-02-09 16:15] VITALS: BP 173/79
[2023-02-09] MEDS: OXYBUTYNIN (DITROPAN) 5 MG TAB PO SCH (19:15)
[2023-02-09] MEDS: cefTRIAXone IV/IM 1,000 MG in NS (IVPB) 50 ML IV SCH (19:15)
[2023-02-09] MEDS: ENOXAPARIN 40 MG/0.4 ML (LOVENOX) SYR SC SCH (19:15)
[2023-02-09 19:41] VITALS: BP 163/75
[2023-02-09] MEDS: AZITHROMYCIN INJECTION 500 MG in NS (IVPB) 250 ML IV SCH (20:12)
[2023-02-09] MEDS: CLOPIDOGREL 75 MG (PLAVIX) TABLET PO SCH (22:07)
[2023-02-10] VITALS (7 sets, daily range): BP systolic 129–160; BP diastolic 62–72
[2023-02-10] MEDS: KCL 20 MEQ TAB (K-DUR) PO SCH (05:29)
[2023-02-10] MEDS: MULTIVIT W/MINERALS TAB (THERAGRAN M) PO SCH (05:29)
[2023-02-10 05:30] LABS: BASOPHILS # (AUTO) 0.1 10^3/uL (0.0-0.1); BASOPHILS % (AUTO) 1 % (0-10); EOSINOPHILS # (AUTO) 0.2 10^3/uL (0.0-0.3); EOSINOPHILS % (AUTO) 2 % (0-10); HEMATOCRIT 33 % (40-54); HEMOGLOBIN 11.5 g/dL (13.3-17.7); LYMPHOCYTES # (AUTO) 1.5 10^3/uL (1.0-4.0); LYMPHOCYTES % (AUTO) 12 % (12-44); MEAN CORPUSCULAR HEMOGLOBIN 31 pg (25-34); MEAN CORPUSCULAR HGB CONC 34 g/dL (32-36); MEAN CORPUSCULAR VOLUME 91 fL (80-99); MONOCYTES # (AUTO) 1.9 10^3/uL (0.0-1.0); MONOCYTES % (AUTO) 15 % (0-12); NEUTROPHILS % (AUTO) 71 % (42-75); PLATELET COUNT 205 10^3/uL (130-400); WHITE BLOOD COUNT 12.7 10^3/uL (4.3-11.0)
[2023-02-10 05:39] LABS: ALBUMIN 3.2 GM/DL (3.2-4.5)
[2023-02-10 05:40] LABS: POTASSIUM 3.5 MMOL/L (3.6-5.0)
[2023-02-10 05:41] LABS: CALCIUM 8.9 MG/DL (8.5-10.1)
[2023-02-10 05:42] LABS: TOTAL PROTEIN 6.5 GM/DL (6.4-8.2)
[2023-02-10 05:44] LABS: BILIRUBIN,TOTAL 0.3 MG/DL (0.1-1.0)
[2023-02-10 05:46] LABS: CREATININE SERUM 0.82 MG/DL (0.60-1.30)
[2023-02-10] MEDS ORDERED: FINA5TAB6 PO (08:28)
[2023-02-10] MEDS: PHENYTOIN 100 MG (DILANTIN) CAP PO SCH ×2 (08:38→20:22)
[2023-02-10] MEDS: ASPIRIN E.C. 81 MG (ECOTRIN) TAB PO SCH (08:38)
[2023-02-10] MEDS: LOSARTAN 50 MG (COZAAR) TAB PO SCH (08:39)
[2023-02-10] MEDS: SENNOSIDES 8.6 MG (SENOKOT) TAB PO SCH ×2 (08:39→20:24)
[2023-02-10] MEDS: OXYBUTYNIN (DITROPAN) 5 MG TAB PO SCH ×2 (08:39→20:22)
[2023-02-10] MEDS: DOCUSATE SODIUM 100 MG (COLACE) CAP PO SCH ×2 (08:39→20:24)
[2023-02-10] MEDS: FINASTERIDE (PROSCAR) 5 MG TAB PO SCH (08:39)
[2023-02-10] MEDS: amLODIPine 10 MG (NORVASC) TAB PO SCH (08:39)
--- NOTE | 2023-02-10 09:36 | Progress Note ---
Subjective Date Seen by a Provider: Feb 10, 2023 Time Seen by a Provider: 09:00 Subjective/Events-last exam Patient doing a lot better Ambulating with PT Confusion still persists which is baseline Labs improved Antibiotics maintained for bacterial bronchitis Will wean oxygen Review of Systems General: Fatigue, Malaise Pulmonary: Dyspnea Focused Exam Lactate Level 02/08/23 16:45: Lactic Acid Level 1.58 Objective Exam Last Set of Vital Signs Vital Signs Date Time Temp Pulse Resp B/P (MAP) Pulse Ox O2 Delivery O2 Flow Rate FiO2 02/10/23 07:42 36.6 70 20 160/72 (101) 96 Nasal Cannula 1.50 Capillary Refill : I&O Intake and Output 02/10/23 00:00 Intake Total 1660 ml Output Total 125 ml Balance 1535 ml Intake Oral 1660 ml Output Urine Total 125 ml # Voids 5 # Bowel Movements 4 General: Alert, Oriented X3, Cooperative, No Acute Distress Lungs: Clear to Auscultation, Normal Air Movement Heart: Regular Rate, Normal S1, Normal S2, No Murmurs Psych/Mental Status: Mental Status NL, Mood NL, Other (Poor recall) Results Lab Laboratory Tests 02/10/23 05:15: White Blood Count 12.7H, Red Blood Count 3.68L, Hemoglobin 11.5L, Hematocrit 33L , Mean Corpuscular Volume 91, Mean Corpuscular Hemoglobin 31, Mean Corpuscular Hemoglobin Concent 34, Red Cell Distribution Width 13.2, Platelet Count 205, Mean Platelet Volume 9.0, Immature Granulocyte % (Auto) 0, Neutrophils (%) (Auto) 71, Lymphocytes (%) (Auto) 12, Monocytes (%) (Auto) 15H, Eosinophils (%) (Auto) 2, Basophils (%) (Auto) 1, Neutrophils # (Auto) 9.0H, Lymphocytes # (Auto) 1.5, Monocytes # (Auto) 1.9H, Eosinophils # (Auto) 0.2, Basophils # (Auto) 0.1, Immature Granulocyte # (Auto) 0.0, Sodium Level 137, Potassium Level 3.5L, Chloride Level 104, Carbon Dioxide Level 22, Anion Gap 11, Blood Urea Nitrogen 17, Creatinine 0.82, Estimat Glomerular Filtration Rate 86, BUN/Creatinine Ratio 21, Glucose Level 113H, Calcium Level 8.9, Corrected Calcium 9.5, Total Bilirubin 0.3, Aspartate Amino Transf (AST/SGOT) 116H, Alanine Aminotransferase (ALT/SGPT) 57H, Alkaline Phosphatase 89, Total Protein 6.5, Albumin 3.2 Microbiology 02/08/23 Urine Culture - Preliminary, Resulted NO GROWTH 02/08/23 Blood Culture - Preliminary, Resulted No growth Assessment/Plan Assessment/Plan Assess & Plan/Chief Complaint Assessment: Fever from uncertain source likely bronchitis Severe weakness Hypoxia requiring oxygen supplementation Dementia Hypertension BPH Seizure disorder History of CVA Plan: Empiric antibiotics Oxygen supplementation Home meds TERRY CUMMINGS DO Feb 10, 2023 09:36
--- NOTE | 2023-02-10 10:31 | Physical Therapy Evaluation ---
PT Evaluation-General Medical Diagnosis Admission Date Feb 08, 2023 at 20:09 Medical Diagnosis: generalized weakness/sepsis Onset Date: Feb 08, 2023 Therapy Diagnosis Therapy Diagnosis: debility Height/Weight Height (Feet): 5 Height (Inches): 8.00 Weight (Pounds): 205 Weight (Ounces): 3.0 Precautions Precautions/Isolations: Fall Prevention, Standard Precautions Referral Physician: Jayne Reason for Referral: Evaluation/Treatment Medical History Pertinent Medical History: CAD, CVA, Dementia, HTN Current History ER secondary to weakness and incontinence Reviewed History: Yes Social History Home: Single Level Current Living Status: Spouse Prior Prior Level of Function SCALE: Activities may be completed with or without assistive devices. 0-Xilliznsxj-sjmlilr completes the activity by him/herself with no assistance from a helper. 5-Set-up or Clean-up Assistance-helper sets up or cleans up; patient completes activity. [place] assists only prior to or following the activity. 4-Supervision or Touching Assistance-helper provides verbal cues and/or touching/steadying and/or contact guard assistance as patient completes activity. Assistance may be provided throughout the activity or intermittently. 3-Partial/Moderate Assistance-helper does LESS THAN HALF the effort. [place] lifts, holds or supports trunk or limbs, but provides less than half the effort. 2-Substantial/Maximal Assistance-helper does MORE THAN HALF the effort. [place] lifts or holds trunk or limbs and provides more than half the effort. 4-Ifvsojonc-lwjovf does ALL the effort. Patient does none of the effort to complete the activity. Or, the assistance of 2 or more helpers is required for the patient to complete the activity. If activity was not attempted, code reason: 7-Patient Refused. 9-Not Applicable-not attempted and the patient did not perform the activity before the current illness, exacerbation or injury. 10-Not Attempted due to Environmental Limitations-(lack of equipment, weather restraints, etc.). 88-Not Attempted due to Medical Conditions or Safety Concerns. Bed Mobility: 6 Transfers (B,C,W/C): 6 Gait: 6 Stairs: 6 Indoor Mobility (Ambulation): Independent Stairs: Independent Prior Devices Use: None PT Evaluation-Current Subjective Patient agrees to PT. Objective Patient Orientation: Person, Place, Time, Situation ROM/Strength ROM Lower Extremities bilateral LE WFL Strength Lower Extremities 4/5 grossly bilateral LE all planes Integumentary/Posture Bowel Incontinence: No Bladder Incontinence: No Posture WFL Neuromuscular (Tone, Coordination, Reflexes) grossly intact Sensory Vision: Wears Glasses Hearing: Functional Transfers Sit to Stand (QC): 4 Gait Mode of Locomotion: Walk Anticipated Mode of Locomotion: Walk Walk 10 feet (QC): 4 Walk 50 ft with 2 Turns(QC): 4 Walk 150 ft (QC): 4 Distance: >800' Gait Assistive Device: FWW Comments/Gait Description 400' with FWW and 400' without AD/safe and functional with both Balance Sitting Static: Normal Sitting Dynamic: Normal Standing Static: Normal Standing Dynamic: Normal Assessment/Needs Patient will be seen short term to ensure gross motor skills remain a safe and functional level to return to home with spouse. Rehab Potential: Fair PT Short Term Goals Short Term Goals Time Frame: Feb 15, 2023 Roll Left & Right: 6 Sit to lyin Lying to sitting on side of be: 6 Sit to stand: 6 Chair/vvx-tq-ipdoc transfer: 6 Toilet transfer: 6 Walk 10 feet: 6 Walk 50 feet with two turns: 6 Walk 150 feet: 6 PT Plan Treatment/Plan Treatment Plan: Continue Plan of Care Treatment Plan: Education, Functional Activity [place], Functional Strength, Gait, Safety, Therapeutic Exercise, Transfers Treatment Duration: Feb 15, 2023 Frequency: 5 times per week Estimated Hrs Per Day: .25 hour per day Patient and/or Family Agrees t: Yes Time Time In: 940 Time Out: 950 DATE: Feb 10, 2023 Total Billed Treatment Time: 10 [facility] Feb 10, 2023 10:31
--- NOTE | 2023-02-10 11:37 | Occupational Therapy Eval ---
OT Evaluation-General/PLF Medical Diagnosis Admission Date Feb 08, 2023 at 20:09 Medical Diagnosis: generalized weakness/sepsis Onset Date: Feb 08, 2023 Therapy Diagnosis Therapy Diagnosis: weakness Height/Weight Height (Feet): 5 Height (Inches): 8.00 Weight (Pounds): 205 Weight (Ounces): 3.0 Precautions Precautions/Isolations: Fall Prevention, Standard Precautions Safety Interventions: Bed Exit Alarm Weight Bear Status Weight Bearing Restriction: Full Weight Bearing Referral Physician: Jayne Referral Reason: Activity Tolerance, Self Care, Evaluation/Treatment, Strengthening/ROM Medical History Pertinent Medical History: CAD, CVA, Dementia, HTN Additional Medical History 87-year-old white male past medical history of CAD, stroke, dementia and hypertension who presented to the ER with generalized weakness and fever. Patient had just started outpatient therapy. He was so weak that his who is a retired nurse called the ambulance and brought him in. Rocephin and tere thromycin were both initiated empirically in case dehydration prevented pneumonia from revealing on chest x-ray. UA did not look significantly abnormal but he does have a history of UTIs. Overall he is doing much better so we will Hep-Lock IV fluids start home medication and ambulate. He was found to have hypoxia so 2 L of oxygen was placed. Reviewed History: Yes Social History Home: Single Level Current Living Status: Spouse ADL-Prior Level of Function SCALE: Activities may be completed with or without assistive devices. 2-Zymkpqstxx-dopyoig completes the activity by him/herself with no assistance from a helper. 5-Set-up or Clean-up Assistance-helper sets up or cleans up; patient completes activity. [place] assists only prior to or following the activity. 4-Supervision or Touching Assistance-helper provides verbal cues and/or touching/steadying and/or contact guard assistance as patient completes activity. Assistance may be provided throughout the activity or intermittently. 3-Partial/Moderate Assistance-helper does LESS THAN HALF the effort. [place] lifts, holds or supports trunk or limbs, but provides less than half the effort. 2-Substantial/Maximal Assistance-helper does MORE THAN HALF the effort. [place] lifts or holds trunk or limbs and provides more than half the effort. 0-Ksjrijlnu-sucobr does ALL the effort. Patient does none of the effort to complete the activity. Or, the assistance of 2 or more helpers is required for the patient to complete the activity. If activity was not attempted, code reason: 7-Patient Refused. 9-Not Applicable-not attempted and the patient did not perform the activity before the current illness, exacerbation or injury. 10-Not Attempted due to Environmental Limitations-(lack of equipment, weather restraints, etc.). 88-Not Attempted due to Medical Conditions or Safety Concerns. Self Care: Independent Functional Cognition: Needed Some Help Drive Self: No OT Current Status Subjective Reclined in bed eating breakfast, agreeable ot OT, spouse present Pain Numeric Pain Scale: 0-No Pain Mental Status/Objective Patient Orientation: Person Believes he is in [employer], but later states he is at [facility], gomez snot know day of week or month Attachments: Oxygen Current Glasses/Contacts: Yes (righ arm broken) Hand Dominance: Right Upper Extremity ROM WFLS, joint approximation limited d/t excessive soft tissue Upper Extremity Coordination GMC BUE EFLS, lmpaired FMC and requires assistance w/ food cutting and opening containers. Spouse reports at home patient is able to do both Upper Extremity Strength -4/5 grossly, composite former hand 4/5, tip touch pinch +3/5 ADL-Treatment Eating (QC): 4 Oral Hygiene (QC): 4 Shower/Bathe Self (QC): 7 Upper Body Dressing (QC): 4 Lower Body Dressing (QC): 3 On/Off Footwear (QC): 2 Toileting Hygiene (QC): 3 (B/B incont.) Spouse reports patient does no use ADS at home Education OT Patient Education: Exercise program, Modified ADL techniques, Progress toward Goal/Update tx plan, Purpose of tx/functional activities, Reviewed precautions, Rehab process, Safety issues, Transfer techniques, Use of adapted equipment Teaching Recipient: Patient, Significant Other Teaching Methods: Demonstration, Discussion Response to Teaching: Reinforcement Needed OT Power Station Operator Goals Power Station Operator Goals Eating (QC): 6 Oral Hygiene (QC): 6 Toileting Hygiene (QC): 5 Shower/Bathe Self (QC): 5 Upper Body Dressing (QC): 6 Lower Body Dressing (QC): 6 On/Off Footwear (QC): 6 1=Demonstrate adherence to instructed precautions during ADL tasks. 2=Patient will verbalize/demonstrate understanding of assistive devices/modifications for ADL. 3=Patient will improve strength/tolerance for activity to enable patient to perform ADL's. OT Education/Plan Problem List/Assessment Assessment: Decreased Activ Tolerance, Decreased Safety Aware, Decreased UE Strength, Impaired Cognition, Impaired Self-Care Skills Discharge Recommendations Plan/Recommendations: Continue POC Treatment Plan/Plan of Care Treatment,Training & Education: Yes Patient would benefit from OT for education, treatment and training to promote independence in ADL's, mobility, safety and/or upper extremity function for ADL's. Plan of Care: ADL Retraining, Concurrent Therapy, Functional Mobility, Group Exercise/Act as Ind, UE Funct Exercise/Act Treatment Duration: Feb 15, 2023 Frequency: 3 times per week (3-5 times per week) Estimated Hrs Per Day: .25 hour per day Agreement: Yes Rehab Potential: Fair Time Start Time: 09:11 Stop Time: 09:30 DATE: Feb 10, 2023 Total Time Billed (hr/min): 21 Billed Treatment Time EVM 21 min HANY DOWELL OT Feb 10, 2023 11:37
[2023-02-10] MEDS: cefTRIAXone IV/IM 1,000 MG in NS (IVPB) 50 ML IV SCH (20:22)
[2023-02-10] MEDS: CLOPIDOGREL 75 MG (PLAVIX) TABLET PO SCH (20:22)
[2023-02-10] MEDS: ENOXAPARIN 40 MG/0.4 ML (LOVENOX) SYR SC SCH (20:24)
[2023-02-10] MEDS ORDERED: AZITHROMYCIN 250 MG TAB (ZITHROMAX) PO SCH (21:00)
[2023-02-11 03:47] VITALS: BP 135/73
[2023-02-11 05:29] LABS: BASOPHILS # (AUTO) 0.1 10^3/uL (0.0-0.1); BASOPHILS % (AUTO) 1 % (0-10); EOSINOPHILS # (AUTO) 0.5 10^3/uL (0.0-0.3); EOSINOPHILS % (AUTO) 5 % (0-10); HEMATOCRIT 33 % (40-54); HEMOGLOBIN 11.4 g/dL (13.3-17.7); LYMPHOCYTES # (AUTO) 1.4 10^3/uL (1.0-4.0); LYMPHOCYTES % (AUTO) 13 % (12-44); MEAN CORPUSCULAR HEMOGLOBIN 31 pg (25-34); MEAN CORPUSCULAR HGB CONC 35 g/dL (32-36); MEAN CORPUSCULAR VOLUME 90 fL (80-99); MONOCYTES # (AUTO) 1.5 10^3/uL (0.0-1.0); MONOCYTES % (AUTO) 14 % (0-12); NEUTROPHILS # (AUTO) 7.1 10^3/uL (1.8-7.8); NEUTROPHILS % (AUTO) 67 % (42-75); PLATELET COUNT 216 10^3/uL (130-400); WHITE BLOOD COUNT 10.6 10^3/uL (4.3-11.0)
[2023-02-11 05:44] LABS: ALBUMIN 3.1 GM/DL (3.2-4.5)
[2023-02-11 05:45] LABS: POTASSIUM 3.6 MMOL/L (3.6-5.0)
[2023-02-11 05:46] LABS: CALCIUM 8.7 MG/DL (8.5-10.1)
[2023-02-11 05:47] LABS: TOTAL PROTEIN 6.2 GM/DL (6.4-8.2)
[2023-02-11 05:49] LABS: BILIRUBIN,TOTAL 0.3 MG/DL (0.1-1.0)
[2023-02-11 05:51] LABS: CREATININE SERUM 0.74 MG/DL (0.60-1.30)
[2023-02-11] MEDS: KCL 20 MEQ TAB (K-DUR) PO SCH (06:22)
[2023-02-11] MEDS: MULTIVIT W/MINERALS TAB (THERAGRAN M) PO SCH (06:22)
[2023-02-11 07:23] VITALS: BP 151/72
[2023-02-11] MEDS: OXYBUTYNIN (DITROPAN) 5 MG TAB PO SCH (08:12)
[2023-02-11] MEDS: FINASTERIDE (PROSCAR) 5 MG TAB PO SCH (08:12)
[2023-02-11] MEDS: DOCUSATE SODIUM 100 MG (COLACE) CAP PO SCH (08:12)
[2023-02-11] MEDS: PHENYTOIN 100 MG (DILANTIN) CAP PO SCH (08:12)
[2023-02-11] MEDS: SENNOSIDES 8.6 MG (SENOKOT) TAB PO SCH (08:12)
[2023-02-11] MEDS: amLODIPine 10 MG (NORVASC) TAB PO SCH (08:12)
[2023-02-11] MEDS: LOSARTAN 50 MG (COZAAR) TAB PO SCH (08:12)
[2023-02-11] MEDS: ASPIRIN E.C. 81 MG (ECOTRIN) TAB PO SCH (08:12)
[2023-02-11] MEDS ORDERED: CEFD300C3 PO (10:24)
--- NOTE | 2023-02-11 10:27 | Discharge Summary ---
Diagnosis/Chief Complaint Date of Admission Feb 08, 2023 at 20:09 Date of Discharge Discharge Date: Feb 11, 2023 Discharge Diagnosis Assessment: Fever from uncertain source likely bronchitis Severe weakness Hypoxia requiring oxygen supplementation Dementia Hypertension BPH Seizure disorder History of CVA Plan: Empiric antibiotics Oxygen supplementation Home meds Discharge Summary Discharge Physical Examination Allergies: Coded Allergies: Sulfa (Sulfonamide Antibiotics) (Unverified Allergy, Mild, HIVES, 07/03/16) Vitals & I&Os Vital Signs Date Time Temp Pulse Resp B/P (MAP) Pulse Ox O2 Delivery O2 Flow Rate FiO2 02/11/23 12:00 36.2 64 18 151/72 95 Room Air 0.00 General Appearance: Alert, Oriented X3, Cooperative Respiratory: Clear to Auscultation Cardiovascular: Regular Rate Hospital Course Was the Problem List Reviewed?: Yes Patient had an uneventful hospital course after his admitted for sepsis with leukocytosis and presumed upper respite edin illness. Urine culture was n egative. He was given gentle IV fluids and oxygen for hypoxia. PT and OT consulted. Oxygen was eventually weaned. Labs returned back to normal and he was discharged in improved condition. Labs (last 24 hrs) Laboratory Tests 02/08/23 16:35: White Blood Count 19.7H, Red Blood Count 4.14L, Hemoglobin 13.3, Hematocrit 38L, Mean Corpuscular Volume 91, Mean Corpuscular Hemoglobin 32, Mean Corpuscular Hemoglobin Concent 35, Red Cell Distribution Width 13.3, Platelet Count 244, Mean Platelet Volume 9.6, Immature Granulocyte % (Auto) 1, Neutrophils (%) (Auto) 76H, Lymphocytes (%) (Auto) 10L, Monocytes (%) (Auto) 13H, Eosinophils (%) (Auto) 1, Basophils (%) (Auto) 0, Neutrophils # (Auto) 15.0H, Lymphocytes # (Auto) 1.9, Monocytes # (Auto) 2.5H, Eosinophils # (Auto) 0.1, Basophils # (Auto) 0.1, Immature Granulocyte # (Auto) 0.1, Neutrophils % (Manual) 78, Lymphocytes % (Manual) 10, Monocytes % (Manual) 12, Blood Morphology Comment NORMAL, Prothrombin Time 16.0H, INR Comment 1.3, Activated Partial Thromboplast Time 37H, Sodium Level 135, Potassium Level 3.6, Chloride Level 100, Carbon Dioxide Level 21, Anion Gap 14, Blood Urea Nitrogen 19H, Creatinine 1.11, Estimat Glomerular Filtration Rate 65, BUN/Creatinine Ratio 17, Glucose Level 174H, Calcium Level 9.3, Corrected Calcium 9.5, Total Bilirubin 0.7, Aspartate Amino Transf (AST/SGOT) 48H, Alanine Aminotransferase (ALT/SGPT) 28, Alkaline Phosphatase 93, Total Protein 7.5, Albumin 3.8 02/08/23 16:45: Lactic Acid Level 1.58, Influenza Type A (RT-PCR) Not Detected, Influenza Type B (RT-PCR) Not Detected, SARS-CoV-2 RNA (RT-PCR) Not Detected 02/08/23 18:52: Urine Color YELLOW, Urine Clarity CLEAR, Urine pH 5.5, Urine Specific [place] 1.025H, Urine Protein 2+H, Urine Glucose (UA) NEGATIVE, Urine Ketones 2+H, Urine Nitrite NEGATIVE, Urine Bilirubin 1+H, Urine Urobilinogen 0.2, Urine Leukocyte Esterase NEGATIVE, Urine RBC (Auto) 1+H, Urine RBC RARE, Urine WBC NONE, Urine Squamous Epithelial Cells RARE, Urine Crystals NONE, Urine Bacteria FEWH, Urine Casts NONE, Urine Mucus NEGATIVE, Urine Culture Indicated NO 02/09/23 05:30: White Blood Count 15.3H, Red Blood Count 3.68L, Hemoglobin 11.3L, Hematocrit 33L , Mean Corpuscular Volume 91, Mean Corpuscular Hemoglobin 31, Mean Corpuscular Hemoglobin Concent 34, Red Cell Distribution Width 13.2, Platelet Count 188, Mean Platelet Volume 9.0, Immature Granulocyte % (Auto) 1, Neutrophils (%) (Aut o) 79H, Lymphocytes (%) (Auto) 8L, Monocytes (%) (Auto) 12, Eosinophils (%) (Auto) 0, Basophils (%) (Auto) 1, Neutrophils # (Auto) 12.1H, Lymphocytes # (Auto) 1.2, Monocytes # (Auto) 1.9H, Eosinophils # (Auto) 0.0, Basophils # (Auto) 0.1, Immature Granulocyte # (Auto) 0.1, Sodium Level 136, Potassium Level 3.3L, Chloride Level 104, Carbon Dioxide Level 22, Anion Gap 10, Blood Urea Nitrogen 20H, Creatinine 0.96, Estimat Glomerular Filtration Rate 77, BUN/Creatinine Ratio 21, Glucose Level 136H, Calcium Level 8.6, Corrected Calcium 9.2, Total Bilirubin 0.4, Aspartate Amino Transf (AST/SGOT) 55H, Alanine Aminotransferase (ALT/SGPT) 28, Alkaline Phosphatase 86, Total Protein 6.3L, Albumin 3.2, Phenytoin (Dilantin) Level 6.5L 02/10/23 05:15: White Blood Count 12.7H, Red Blood Count 3.68L, Hemoglobin 11.5L, Hematocrit 33L , Mean Corpuscular Volume 91, Mean Corpuscular Hemoglobin 31, Mean Corpuscular Hemoglobin Concent 34, Red Cell Distribution Width 13.2, Platelet Count 205, Mean Platelet Volume 9.0, Immature Granulocyte % (Auto) 0, Neutrophils (%) (Auto) 71, Lymphocytes (%) (Auto) 12, Monocytes (%) (Auto) 15H, Eosinophils (%) (Auto) 2, Basophils (%) (Auto) 1, Neutrophils # (Auto) 9.0H, Lymphocytes # (Auto) 1.5, Monocytes # (Auto) 1.9H, Eosinophils # (Auto) 0.2, Basophils # (Auto) 0.1, Immature Granulocyte # (Auto) 0.0, Sodium Level 137, Potassium Level 3.5L, Chloride Level 104, Carbon Dioxide Level 22, Anion Gap 11, Blood Urea Ni trogen 17, Creatinine 0.82, Estimat Glomerular Filtration Rate 86, BUN/Creatinine Ratio 21, Glucose Level 113H, Calcium Level 8.9, Corrected Calcium 9.5, Total Bilirubin 0.3, Aspartate Amino Transf (AST/SGOT) 116H, Alanine Aminotransferase (ALT/SGPT) 57H, Alkaline Phosphatase 89, Total Protein 6.5, Albumin 3.2 02/11/23 05:10: White Blood Count 10.6, Red Blood Count 3.65L, Hemoglobin 11.4L, Hematocrit 33L, Mean Corpuscular Volume 90, Mean Corpuscular Hemoglobin 31, Mean Corpuscular Hemoglobin Concent 35, Red Cell Distribution Width 13.2, Platelet Count 216, Mean Platelet Volume 9.0, Immature Granulocyte % (Auto) 1, Neutrophils (%) (Auto) 67, Lymphocytes (%) (Auto) 13, Monocytes (%) (Auto) 14H, Eosinophils (%) (Auto) 5, Basophils (%) (Auto) 1, Neutrophils # (Auto) 7.1, Lymphocytes # (Auto) 1.4, Monocytes # (Auto) 1.5H, Eosinophils # (Auto) 0.5H, Basophils # (Auto) 0.1, Immature Granulocyte # (Auto) 0.1, Sodium Level 138, Potassium Level 3.6, Chloride Level 105, Carbon Dioxide Level 24, Anion Gap 9, Blood Urea Nitrogen 15, Creatinine 0.74, Estimat Glomerular Filtration Rate 89, BUN/Creatinine Ratio 20, Glucose Level 117H, Calcium Level 8.7, Corrected Calcium 9.4, Total Bilirubin 0.3, Aspartate Amino Transf (AST/SGOT) 272H, Alanine Aminotransferase (ALT/SGPT) 132H, Alkaline Phosphatase 91, Total Protein 6.2L, Albumin 3.1L Microbiology 02/08/23 Urine Culture - Final, Complete NO GROWTH 02/08/23 Blood Culture - Preliminary, Resulted No growth Pending Labs Microbiology Date/Time Source Procedure Growth Status 02/08/23 18:52 Urine Singh Cath Urine Culture - Final NO GROWTH Complete 02/08/23 16:49 Peripheral Rt Hand Blood Culture - Preliminary No growth Resulted 02/08/23 16:45 Peripheral Rt Ac Blood Culture - Preliminary Staphylococcus epidermidis Resulted Laboratory Tests 02/08/23 16:35: White Blood Count 19.7, Red Blood Count 4.14, Hemoglobin 13.3, Hematocrit 38, Mean Corpuscular Volume 91, Mean Corpuscular Hemoglobin 32, Mean Corpuscular Hemoglobin Concent 35, Red Cell Distribution Width 13.3, Platelet Count 244, Mean Platelet Volume 9.6, Immature Granulocyte % (Auto) 1, Neutrophils (%) (Auto) 76, Lymphocytes (%) (Auto) 10, Monocytes (%) (Auto) 13, Eosinophils (%) (Auto) 1, Basophils (%) (Auto) 0, Neutrophils # (Auto) 15.0, Lymphocytes # (Auto) 1.9, Monocytes # (Auto) 2.5, Eosinophils # (Auto) 0.1, Basophils # (Auto) 0.1, Immature Granulocyte # (Auto) 0.1, Neutrophils % (Manual) 78, Lymphocytes % (Manual) 10, Monocytes % (Manual) 12, Blood Morphology Comment NORMAL, Prothrombin Time 16.0, INR Comment 1.3, Activated Partial Thromboplast Time 37, Sodium Level 135, Potassium Level 3.6, Chloride Level 100, Carbon Dioxide Level 21, Anion Gap 14, Blood Urea Nitrogen 19, Creatinine 1.11, Estimat Glomerular Filtration Rate 65, BUN/Creatinine Ratio 17, Glucose Level 174, Calcium Level 9.3, Corrected Calcium 9.5, Total Bilirubin 0.7, Aspartate Amino Transf (AST/SGOT) 48, Alanine Aminotransferase (ALT/SGPT) 28, Alkaline Phosphatase 93, Total Protein 7.5, Albumin 3.8 02/08/23 16:45: Lactic Acid Level 1.58, Influenza Type A (RT-PCR) Not Detected, Influenza Type B (RT-PCR) Not Detected, SARS-CoV-2 RNA (RT-PCR) Not Detected 02/08/23 18:52: Urine Color YELLOW, Urine Clarity CLEAR, Urine pH 5.5, Urine Specific [place] 1.025, Urine Protein 2+, Urine Glucose (UA) NEGATIVE, Urine Ketones 2+, Urine Nitrite NEGATIVE, Urine Bilirubin 1+, Urine Urobilinogen 0.2, Urine Leukocyte Esterase NEGATIVE, Urine RBC (Auto) 1+, Urine RBC RARE, Urine WBC NONE, Urine Squamous Epithelial Cells RARE, Urine Crystals NONE, Urine Bacteria FEW, Urine Casts NONE, Urine Mucus NEGATIVE, Urine Culture Indicated NO 02/09/23 05:30: White Blood Count 15.3, Red Blood Count 3.68, Hemoglobin 11.3, Hematocrit 33, Mean Corpuscular Volume 91, Mean Corpuscular Hemoglobin 31, Mean Corpuscular Hemoglobin Concent 34, Red Cell Distribution Width 13.2, Platelet Count 188, Mean Platelet Volume 9.0, Immature Granulocyte % (Auto) 1, Neutrophils (%) (Auto) 79, Lymphocytes (%) (Auto) 8, Monocytes (%) (Auto) 12, Eosinophils (%) (Auto) 0, Basophils (%) (Auto) 1, Neutrophils # (Auto) 12.1, Lymphocytes # (Auto) 1.2, Monocytes # (Auto) 1.9, Eosinophils # (Auto) 0.0, Basophils # (Auto) 0.1, Immature Granulocyte # (Auto) 0.1, Sodium Level 136, Potassium Level 3.3, Chloride Level 104, Carbon Dioxide Level 22, Anion Gap 10, Blood Urea Nitrogen 20, Creatinine 0.96, Estimat Glomerular Filtration Rate 77, BUN/Creatinine Ratio 21, Glucose Level 136, Calcium Level 8.6, Corrected Calcium 9.2, Total Bilirubin 0.4, Aspartate Amino Transf (AST/SGOT) 55, Alanine Aminotransferase (ALT/SGPT) 28, Alkaline Phosphatase 86, Total Protein 6.3, Albumin 3.2, Phenytoin (Dilantin) Level 6.5 02/10/23 05:15: White Blood Count 12.7, Red Blood Count 3.68, Hemoglobin 11.5, Hematocrit 33, Mean Corpuscular Volume 91, Mean Corpuscular Hemoglobin 31, Mean Corpuscular Hemoglobin Concent 34, Red Cell Distribution Width 13.2, Platelet Count 205, Mean Platelet Volume 9.0, Immature Granulocyte % (Auto) 0, Neutrophils (%) (A uto) 71, Lymphocytes (%) (Auto) 12, Monocytes (%) (Auto) 15, Eosinophils (%) (Auto) 2, Basophils (%) (Auto) 1, Neutrophils # (Auto) 9.0, Lymphocytes # (Auto) 1.5, Monocytes # (Auto) 1.9, Eosinophils # (Auto) 0.2, Basophils # (Auto) 0.1, Immature Granulocyte # (Auto) 0.0, Sodium Level 137, Potassium Level 3.5, Chloride Level 104, Carbon Dioxide Level 22, Anion Gap 11, Blood Urea Nitrogen 17, Creatinine 0.82, Estimat Glomerular Filtration Rate 86, BUN/Creatinine Ratio 21, Glucose Level 113, Calcium Level 8.9, Corrected Calcium 9.5, Total Bilirubin 0.3, Aspartate Amino Transf (AST/SGOT) 116, Alanine Aminotransferase (ALT/SGPT) 57, Alkaline Phosphatase 89, Total Protein 6.5, Albumin 3.2 02/11/23 05:10: White Blood Count 10.6, Red Blood Count 3.65, Hemoglobin 11.4, Hematocrit 33, Mean Corpuscular Volume 90, Mean Corpuscular Hemoglobin 31, Mean Corpuscular Hemoglobin Concent 35, Red Cell Distribution Width 13.2, Platelet Count 216, Mean Platelet Volume 9.0, Immature Granulocyte % (Auto) 1, Neutrophils (%) (Auto) 67, Lymphocytes (%) (Auto) 13, Monocytes (%) (Auto) 14, Eosinophils (%) (Auto) 5, Basophils (%) (Auto) 1, Neutrophils # (Auto) 7.1, Lymphocytes # (Auto) 1.4, Monocytes # (Auto) 1.5, Eosinophils # (Auto) 0.5, Basophils # (Auto) 0.1, Immature Granulocyte # (Auto) 0.1, Sodium Level 138, Potassium Level 3.6, Chloride Level 105, Carbon Dioxide Level 24, Anion Gap 9, Blood Urea Nitrogen 15, Creatinine 0.74, Estimat Glomerular Filtration Rate 89, BUN/Creatinine Ratio 20, Glucose Level 117, Calcium Level 8.7, Corrected Calcium 9.4, Total Bilirubin 0.3, Aspartate Amino Transf (AST/SGOT) 272, Alanine Aminotransferase (ALT/SGPT) 132, Alkaline Phosphatase 91, Total Protein 6.2, Albumin 3.1 Discharge Home Medications: Active Scripts Active Cefdinir 300 Mg Capsule 300 Mg PO BID Reported Finasteride 5 Mg Tablet 5 Mg PO DAILY Tylenol Extra Strength (Acetaminophen) 500 Mg Tablet 1,000 Mg PO BID PRN TAKES 2 (500MG) TABS Multivitamin 1 Each Tablet 1 Each PO DAILY Preservision Areds 2 Softgel (Vit C/E/Zn/Coppr/Lutein/Zeaxan) 1 Each Capsule 1 E ach PO BID Aspirin EC (Aspirin) 81 Mg Tablet.dr 81 Mg PO DAILY Oxybutynin Chloride 5 Mg Tablet 5 Mg PO BID Norvasc (Amlodipine Besylate) 10 Mg Tablet 10 Mg PO DAILY Plavix (Clopidogrel Bisulfate) 75 Mg Tablet 75 Mg PO HS Phenytoin Sodium Extended 100 Mg Capsule 100 Mg PO BID Losartan Potassium 50 Mg Tablet 50 Mg PO DAILY Atorvastatin Calcium 40 Mg Tablet 40 Mg PO DAILY Instructions to patient/family Please see electronic discharge instructions given to patient. TERRY CUMMINGS DO Feb 11, 2023 10:27
--- NOTE | 2023-02-11 10:54 | Physical Therapy Daily Note ---
PT Daily Note-Current Subjective Patient and spouse agree to PT. Pain Section J - Health Conditions 1. Rarely or not at all 2. Occasionally 3. Frequently 4. Almost constantly 8. Unable to answer Pain Effect on Sleep: 1 Pain Interference with Therapy: 1 Pain Interference w/Day-to-Day: 1 Transfers SCALE: Activities may be completed with or without assistive devices. 8-[id number]-sskootd completes the activity by him/herself with no assistance from a helper. 5-Set-up or Clean-up Assistance-helper sets up or cleans up; patient completes activity. [place] assists only prior to or following the activity. 4-Supervision or Touching Assistance-helper provides verbal cues and/or touching/steadying and/or contact guard assistance as patient completes activity. Assistance may be provided throughout the activity or intermittently. 3-Partial/Moderate Assistance-helper does LESS THAN HALF the effort. [place] lifts, holds or supports trunk or limbs, but provides less than half the effort. 2-Substantial/Maximal Assistance-helper does MORE THAN HALF the effort. [place] lifts or holds trunk or limbs and provides more than half the effort. 6-[place]-vyeixb does ALL the effort. Patient does none of the effort to complete the activity. Or, the assistance of 2 or more helpers is required for the patient to complete the activity. If activity was not attempted, code reason: 7-Patient Refused. 9-Not Applicable-not attempted and the patient did not perform the activity before the current illness, exacerbation or injury. 10-Not Attempted due to Environmental Limitations-(lack of equipment, weather restraints, etc.). 88-Not Attempted due to Medical Conditions or Safety Concerns. Sit to Stand (QC): 5 Gait Training Distance: >500' Walk 10 feet (QC): 5 Walk 50 ft with 2 Turns(QC): 5 Walk 150 ft (QC): 5 Gait Assistive Device: FWW ambulated with AD for 200', however, has better dynamic balance with FWW use. (PT instructed patient and spouse to utilize FWW in home for safety. Both voice understanding) Assessment Patient tolerated treatment well and will dismiss to home with spouse and outpa tient PT on this date. PT Short Term Goals Short Term Goals Time Frame: Feb 15, 2023 Roll Left & Right: 6 Sit to lyin Lying to sitting on side of be: 6 Sit to stand: 6 Chair/evr-iu-rrgox transfer: 6 Toilet transfer: 6 Walk 10 feet: 6 Walk 50 feet with two turns: 6 Walk 150 feet: 6 PT Plan Treatment/Plan Treatment Plan: Discontinue PT Treatment Plan: Education, Functional Activity [place], Functional Strength, Gait, Safety, Therapeutic Exercise, Transfers Treatment Duration: Feb 15, 2023 Frequency: 5 times per week Estimated Hrs Per Day: .25 hour per day Patient and/or Family Agrees t: Yes Time Time In: 1015 Time Out: 1028 DATE: Feb 11, 2023 Total Billed Treatment Time: 13 Total Billed Treatment 1 visit FA 13 min RICHARD KIRK PT Feb 11, 2023 10:54
[2023-02-11 12:00] VITALS: BP 151/72
--- NOTE | 2023-02-11 18:08 | Physician Query-Final Dx ---
SORAYA VALENTINO 02/11/23 1808: Final Diagnosis Give Final Diagnosis Please give Final Diagnosis Clinical Validation Clarification Dr Radha Godoy Sepsis has been documented in the medical record. After study, has Sepsis been ruled out? If it has been ruled out, please document Sepsis ruled out" in the progress notes and/or discharge summary. Yes/Agreed, Sepsis ruled out/is not clinically valid Not agreed, Sepsis has not been ruled out/is clinically valid* *Please document the clinical evidence supportive of this diagnosis (even if now resolved) in the Progress Notes and Discharge Summary Other, with explanation of the clinical findings Clinically undetermined, no explanation for the clinical findings Additional information: Admitted with fever, generalized weakness and hypoxia, Admission VS/Labs: HR 89, RR 20, BP 162/74, SpO2 90% sat on room air, T 40.3, WBC 19.7, lactic acid 1.58, BC x 1 with Staphylococcus epidermidis, Treatment: ER: Tylenol p.o., lactated Ringer's 1 L, ceftriaxone IV azithromycin was also given In responding to this query, please exercise your independent professional judg ment. The purpose of this communication is to more accurately reflect the complexity of your patients condition. The fact that a question is asked does not imply that any particular answer is desired or expected. Thank you for your timely response to this clarification. Soraya Valentino MSN, RN Clinical Agency Director [email or web address] TERRY GODOY DO 02/11/232014: Final Diagnosis Give Final Diagnosis Not agreed, Sepsis has not been ruled out/is clinically valid* SORAYA VALENTINO Feb 11, 2023 18:08 TERRY GODOY DO Feb 11, 2023 20:15
== END 2023-02-11 11:08 | disposition home or self-care (01) | DRG 872 ==
LOC: EDUNIT# 16:34 → ER 16:35 → 4TH 20:09
PROVIDERS: ADMIT Internal Medicine; ATTEND Internal Medicine
DX: A41.9 Sepsis, unspecified organism (principal); R09.02 Hypoxemia; Z20.822 Contact with and (suspected) exposure to COVID-19; J40 Bronchitis, not specified as acute or chronic; R53.1 Weakness; F03.90 Unspecified dementia, unspecified severity, without behavioral disturbance, psychotic disturbance, mood disturbance, and anxiety; I10 Essential (primary) hypertension; N40.0 Benign prostatic hyperplasia without lower urinary tract symptoms; G40.909 Epilepsy, unspecified, not intractable, without status epilepticus; Z86.73 Personal history of transient ischemic attack (TIA), and cerebral infarction without residual deficits; Z79.82 Long term (current) use of aspirin; Z79.899 Other long term (current) drug therapy; I25.10 Atherosclerotic heart disease of native coronary artery without angina pectoris; E78.00 Pure hypercholesterolemia, unspecified; M19.90 Unspecified osteoarthritis, unspecified site; H35.30 Unspecified macular degeneration; H26.9 Unspecified cataract
CPT/HCPCS: 36415; 71045; 80053; 80185; 81000; 83605; 85007; 85025; 85027; 85610; 85730; 87040; 87077; 87088; 87636; 94760; 94761

== ENCOUNTER 2023-03-06 12:57 | Outpatient (RCR) | payer MEDICARE, OTHER ==
[~2023-03-06 12:57] MED LIST changes: +CEFD300C3 PO; +FINA5TAB6 PO
== END 2023-03-07 | disposition home or self-care (01) ==
PROVIDERS: ATTEND Family Medicine
DX: M25.551 Pain in right hip (principal); M25.552 Pain in left hip

== ENCOUNTER 2023-04-03 13:50 | Outpatient (RCR) | payer MEDICARE, OTHER | END 2023-04-07 | disposition home or self-care (01) | PROVIDERS: ATTEND Family Medicine | DX: R26.89 Other abnormalities of gait and mobility (principal); R53.1 Weakness; I10 Essential (primary) hypertension ==

== ENCOUNTER 2023-04-15 11:17 | Outpatient (RCR) | payer MEDICARE, OTHER | END 2023-04-15 17:00 | disposition home or self-care (01) | PROVIDERS: ATTEND Family Medicine | DX: R26.89 Other abnormalities of gait and mobility (principal); I10 Essential (primary) hypertension ==